=== PATIENT | male | born 1980 | race Asian ===

== ENCOUNTER 2017-11-29 12:46 | Emergency (ER) | payer OTHER, SELFPAY ==
[2017-11-29 12:55] VITALS: BP 136/76; PULSE 71; RESP 15; TEMP 36.4; O2SAT 100; BMI 26.0
--- NOTE | 2017-11-29 13:24 | ED_ITS ---
HPI - Extremity Injury (Lower) <FAIZAN Baltazar - Last Filed: 11/29/17 13:38> General Chief Complaint: Extremity Injury, Lower Stated Complaint: OUTSIDE OF FEET HURT Time Seen by Provider: 11/29/17 13:02 Source: patient Mode of arrival: ambulatory Limitations: no limitations History of Present Illness HPI Narrative: pt c/o B foot pain, hurts on the side of the foot, pinkie sides, no injury/trauma, no running/jugging or heavy impact type activities, no change in color, no sores/lesions, no break in skin, no rash, no change in temperature , no change in rom, pain hurts more when weight bearing, and nothing makes it better, started about x2 weeks ago, denies any other issues/concerns than his feet hurting MD complaint: other Onset (ago): week(s) (2) Severity: mild Relieving factors: nothing Exacerbating factors: weight bearing Other symptoms: none Related Data Previous Rx's Medication Instructions Recorded cyclobenzaprine 10 mg PO TIDP PRN #14 tab 03/19/17 hydrocodone-acetaminophen 0 tab PO Q6HP PRN #15 tab 03/19/17 prednisone 20 mg PO QDAY 5 Days #0 tab 05/02/17 Allergies Allergy/AdvReac Type Severity Reaction Status Date / Time No Known Drug Allergies Allergy Verified 11/29/17 12:54 Review of Systems <FAIZAN Baltazar - Last Filed: 11/29/17 13:38> Review of Systems All systems reviewed & are unremarkable except as noted in HPI and below Constitutional Reports as per HPI and Reports system reviewed and no additional complaints, except as docu ENT Ears, Nose, Mouth, and Throat: Denies neck pain Musculoskeletal Reports as per HPI, Denies abnormal gait, Denies back pain, Denies myalgias, Denies deformity, Denies arthralgias, Denies joint swelling, Denies limited range of motion, Denies muscle cramps, Denies muscle weakness, Denies neck pain , Reports numbness (sometimes the area around side of pinkie toe feels numb), Denies radiating pain into limb, Denies stiffness and Denies tingling Integumentary/Breasts Reports as per HPI, Denies pruritus, Denies lesions, Denies nail changes, Denies erythema, Denies rash, Denies skin pain, Denies skin swelling, Denies skin ulcer, Denies sores, Denies unusual bruising and Denies wounds Neurologic Denies abnormal gait, Reports numbness (sometimes the area around side of pinkie toe feels numb) and Denies tingling Exam <FAIZAN Baltazar - Last Filed: 11/29/17 13:38> Initial Vital Signs Initial Vital Signs: Vital Signs Temperature 97.6 F 11/29/17 12:55 Pulse Rate 71 11/29/17 12:55 Respiratory Rate 15 11/29/17 12:55 Blood Pressure 136/76 11/29/17 12:55 Pulse Oximetry 100 11/29/17 12:55 Const General: cooperative, healthy appearing, comfortable and well developed Nutritional Appearance: average body habitus Orientation: alert, awake and oriented x3 Resp Effort & Inspection: normal respiratory effort and able to speak in complete sentences Back/Spine/Pelvis Cervical Spine: cervical ROM normal Thoracic/Lumbar Spine: thoraco-lumbar ROM limited Skin General: no rashes or lesions noted, elasticity normal, turgor normal, No erythema and warm Lesions: no lesions Rashes: no rashes Trauma: no lacerations or abrasions Wounds: no wounds Nails: normal Neuro General: alert, awake and oriented x3 Cranial Nerves: CN's II-XI intact bilaterally Cognition: normal cognition Speech: speech normal Motor: muscle tone normal throughout Sensory Exam: no sensory deficits noted Extrem General: normal to inspection and full ROM Right upper extremity: normal to inspection and full ROM Left upper extremity: normal to inspection and full ROM Right lower extremity: normal to inspection, full ROM and normal capillary refill; no edema Left lower extremity: normal to inspection, full ROM and normal capillary refill ; no edema Psych Appearance: grossly normal and well kempt Mental Status: mental status grossly normal Speech and Movement: speech and movement normal Mood: congruent mood Affect: normal affect Attitude: cooperative Thought Process: normal Thought Content: normal Judgment: judgment good <Destini Johnson MD - Last Filed: 11/29/17 20:17> Initial Vital Signs Initial Vital Signs: Vital Signs Temperature 97.6 F 11/29/17 12:55 Pulse Rate 71 11/29/17 12:55 Respiratory Rate 15 11/29/17 12:55 Blood Pressure 136/76 11/29/17 12:55 Pulse Oximetry 100 11/29/17 12:55 Course <FAIZAN Baltazar - Last Filed: 11/29/17 13:38> Vital Signs - 8 hr 11/29/17 12:55 Temperature 97.6 F Pulse Rate 71 Respiratory Rate 15 Blood Pressure 136/76 Pulse Oximetry 100 <Destini Johnson MD - Last Filed: 11/29/17 20:17> Vital Signs - 8 hr 11/29/17 12:55 Temperature 97.6 F Pulse Rate 71 Respiratory Rate 15 Blood Pressure 136/76 Pulse Oximetry 100 MDM - Extremity Injury (Lower) <FAIZAN Baltazar - Last Filed: 11/29/17 13:38> Differential Diagnosis Likely fracture of toe and other (sprain, gout, cellulitis, arthritis, plantar fascitis, tendonitis, stress fx) Discharge Plan Departure Patient Disposition: Home Clinical Impression: Bilateral foot pain Discharge Date/Time: 11/29/17 13:28 Interventions: ED Discharge Assessment Last Done: 11/29/17 13:27 Instructions: DI for Metatarsalgia, DI for Foot Pain Prescriptions: No Action cyclobenzaprine 10 MG tablet 10 mg PO TIDP PRNQty: 14 RF: 0 hydrocodone-acetaminophen 5 MG/325 MG tablet PO Q6HP PRNQty: 15 RF: 0 prednisone 20 MG tablet 20 mg PO QDAY 5 Days Qty: 0 RF: 0 Referrals: Jagdeep Gage DPM [Non-Staff] - Naresh Pulliam DPM [Non-Staff] - (follow up with podiatry as needed for continued pain or issues) Claudette Buchanan DPM [Physician] - Lois Thakkar DPM [Non-Staff] - Kermit Wong DPM [Physician] -
== END 2017-11-29 13:28 | disposition home or self-care (01) ==
PROVIDERS: Emergency Provider Nurse Practitioner
DX: M79.671 Pain in right foot (principal); M79.672 Pain in left foot
CPT/HCPCS: 99282

== ENCOUNTER 2017-12-28 18:16 | Emergency (ER) | payer OTHER, SELFPAY ==
[2017-12-28 18:33] VITALS: BP 135/58; PULSE 66; RESP 18; TEMP 36.8; O2SAT 100; BMI 25.9
--- NOTE | 2017-12-28 18:39 | ED.ABDPAIN ---
HPI - Abdominal Pain <Alycia Virk PA-C - Last Filed: 12/28/17 21:43> General Chief Complaint: Abdominal Pain Stated Complaint: L Side Abdominal Pain Time Seen by Provider: 12/28/17 18:39 Source: patient Mode of arrival: ambulatory Limitations: no limitations History of Present Illness HPI narrative: This 37-year-old male comes in due to left upper quadrant pain. He states he has had this intermittently for 6 months. It occurs when feels hungry, typically on an empty stomach, often in the morning. He states he gets better within minutes after he has food in his stomach. He states if he over eats he might have some pain as well. He states that when he has the pain, it is worse when he bends over, better if he sits straight. He said in the last couple of weeks, he has had pain a little bit more frequently and slightly more severe. It was a bit worse this morning, resolved now. He denies any fever. He denies any dysphagia or odynophagia. He denies any nausea or vomiting. He denies any urinary symptoms. He states his bowel movements are normal. He has also had occasional blood on toilet paper, not in the stool, for 4 months or more, none today. He denies any pain in his ribs or chest, no dyspnea. He notes he has been on meloxicam for chronic neck pain and headaches, as well as Robaxin and gabapentin and is scheduled to get a injection for this. The states he has a remote history of H pylori 10 years ago Related Data Previous Rx's Medication Instructions Recorded cyclobenzaprine 10 mg PO TIDP PRN #14 tab 03/19/17 hydrocodone-acetaminophen 0 tab PO Q6HP PRN #15 tab 03/19/17 prednisone 20 mg PO QDAY 5 Days #0 tab 05/02/17 Allergies Allergy/AdvReac Type Severity Reaction Status Date / Time No Known Drug Allergies Allergy Verified 12/28/17 18:37 Review of Systems <Alycia Virk PA-C - Last Filed: 12/28/17 21:43> Review of Systems All systems reviewed & are unremarkable except as noted in HPI and below Exam <NINA Gonzalez Last Filed: 12/28/17 21:43> Narrative Exam Narrative: GENERAL APPEARANCE: Patient sitting comfortably, appears well HEENT: PERRL, EOMI, no scleral icterus NECK: Supple, small R. anterior thryroid nodule noted, no other masses, trachea midline with normal swallow LUNGS: Clear to auscultation bilaterally. HEART: Rate and rhythm regular, normal S1 and S2, no S3 or S4. ABDOMEN: Soft, nondistended, bowel sounds present x 4 quadrants, no masses palpable, no hepatosplenomegaly. Minimal right upper quadrant tenderness without guarding or rebound. No tenderness over the epigastrium, left upper quadrant. EXTREMITIES: No edema, no cyanosis DERMATOLOGIC: No jaundice or exanthem NEUROLOGIC: Alert and oriented with normal speech and coordination Initial Vital Signs Initial Vital Signs: Vital Signs Temperature 98.3 F 12/28/17 18:33 Pulse Rate 66 12/28/17 18:33 Respiratory Rate 18 12/28/17 18:33 Blood Pressure 135/58 L 12/28/17 18:33 Pulse Oximetry 100 12/28/17 18:33 <Lori Carr DO - Last Filed: 12/29/17 03:05> Initial Vital Signs Initial Vital Signs: Vital Signs Temperature 98.3 F 12/28/17 18:33 Pulse Rate 66 12/28/17 18:33 Respiratory Rate 18 12/28/17 18:33 Blood Pressure 135/58 L 12/28/17 18:33 Pulse Oximetry 100 12/28/17 18:33 Course <Alycia Virk PA-C - Last Filed: 12/28/17 21:43> Additional Information: Patient is currently asymptomatic had minimal right upper quadrant pain (not left, which was his complaint) on exam. No acute findings on lab work or ultrasound. He does have history of H pylori. Advised trial of omeprazole and follow up with PCP as he may need further workup such as EGD if not improving. He is agreeable with this plan as well as return if any acutely worsening symptoms. Discussed coincidentally noted small thyroid nodule with him. He has had MRI/imaging of his neck with plan for injections, so this may have been noted previously. Advised review with PCP as well. Orders Ordered: ED Orders 12/28/17 18:53 US abdomen complete Stat 12/28/17 18:55 Complete Blood Count AUTO DIFF Stat Comprehensive Metabolic Panel Stat Lipase Stat Vital Signs - 8 hr 12/28/17 20:05 Pulse Rate 58 L Respiratory Rate 16 Blood Pressure [Right Arm] 118/69 Pulse Oximetry 100 <Lori Carr DO - Last Filed: 12/29/17 03:05> Orders Ordered: ED Orders 12/28/17 18:53 US abdomen complete Stat 12/28/17 18:55 Complete Blood Count AUTO DIFF Stat Comprehensive Metabolic Panel Stat Lipase Stat Vital Signs - 8 hr 12/28/17 20:05 Pulse Rate 58 L Respiratory Rate 16 Blood Pressure [Right Arm] 118/69 Pulse Oximetry 100 MDM - Abdominal Pain <Alycia Virk PA-C - Last Filed: 12/28/17 21:43> Lab Data Attestation: I reviewed the patient's lab results. Result diagrams: 12/28/17 18:55 12/28/17 18:55 Lab Results 12/28/17 12/28/17 Range/Units 18:55 18:55 WBC 6.6 (4.5-11.0) X10^3/uL RBC 5.50 (4.5-5.9) X10^6/uL Hgb 16.0 (13.5-17.5) g/dL Hct 47.3 (41-53) % MCV 86.0 (80-100) fL MCH 29.1 (26-34) PG MCHC 33.8 (30-36) % RDW 12.9 (11.6-14.8) % Plt Count 206 (150-400) X10^3/uL Neut % (Auto) 52.7 (50-75) % Lymph % (Auto) 37.9 (25-40) % [place] % (Auto) 6.5 (3-14) % Eos % (Auto) 2.0 (2-4) % Baso % (Auto) 0.9 (0-2) % Neut # (Auto) 3500 (6509-0319) /uL Sodium 140 (137-145) mmol/L Potassium 4.0 (3.4-5.1) mmol/L Chloride 102 (98-107) mmol/L Carbon Dioxide 28 (22-32) mmol/L BUN 18 (9-20) mg/dL Creatinine 1.00 (0.66-1.25) mg/dL Estimated GFR > 60.0 (>60) mL/min BUN/Creatinine Ratio 18.0 (6-22) Glucose 91 (70-100) mg/dL Calcium 9.6 (8.4-10.2) mg/dL Total Bilirubin 0.7 (0.2-1.3) mg/dL AST 29 (17-59) IU/L ALT 29 (21-72) IU/L Alkaline Phosphatase 53 (38-126) U/L Total Protein 8.0 (6.3-8.2) g/dL Albumin 4.7 (3.5-5.0) g/dL Globulin 3.3 (1.7-4.1) g/dL Albumin/Globulin Ratio 1.4 (1.0-2.8) Lipase 35 (23-300) U/L Imaging Data US - abdomen: Radiologist's impression: [address] [address] Ultrasound Report Signed Patient: Robbin Mondragon#: [id number] : 1980Acct:[id number] Age/Sex: 37 / MDate of Service: 12/28/17 Loc: ED Accession Number: [id number] Procedure: US abdomen complete Ordering Provider: Alycia Virk P.A-C PROCEDURE: US ABDOMEN COMPLETE INDICATIONS: LEFT UPPER QUADRANT PAIN TECHNIQUE: Real-time scanning was performed of the abdominal and retroperitoneal organs, with image documentation. COMPARISON: None. FINDINGS: Liver: Liver is normal in size and homogeneous in echotexture. Gallbladder: Gallbladder is unremarkable. Wall thickness is within normal limits measuring 1.7 mm. Biliary ducts: Intrahepatic bile ducts are non-dilated. Extrahepatic bile duct caliber measures 5.4 mm. Normal is 6-7 mm or less in diameter, or 10 mm or less post-cholecystectomy. Pancreas: Visualized portions of the pancreas are sonographically normal. Spleen: Spleen is normal in size and homogeneous in echotexture. Kidneys: Kidneys are normal in size and echotexture. Right kidney measures 10.9 cm long; left kidney measures 10.5 cm long. No hydronephrosis or nephrolithiasis. No solid masses. Aorta: Visualized aorta is normal in caliber at less than 3 cm. Iliacs: Proximal common iliac arteries are normal in caliber at less than 2.5 cm. IVC: Intrahepatic inferior vena cava is patent. Miscellaneous: No free abdominal fluid. IMPRESSION: 1. Unremarkable exam. Dictated by: Sonia Hand M.D. on 12/28/2017 at 20:38 Approved by: Sonia Hand M.D. on 12/28/2017 at 20:39 <Lori Carr DO - Last Filed: 12/29/17 03:05> Lab Data Lab Results 12/28/17 12/28/17 Range/Units 18:55 18:55 WBC 6.6 (4.5-11.0) X10^3/uL RBC 5.50 (4.5-5.9) X10^6/uL Hgb 16.0 (13.5-17.5) g/dL Hct 47.3 (41-53) % MCV 86.0 (80-100) fL MCH 29.1 (26-34) PG MCHC 33.8 (30-36) % RDW 12.9 (11.6-14.8) % Plt Count 206 (150-400) X10^3/uL Neut % (Auto) 52.7 (50-75) % Lymph % (Auto) 37.9 (25-40) % [place] % (Auto) 6.5 (3-14) % Eos % (Auto) 2.0 (2-4) % Baso % (Auto) 0.9 (0-2) % Neut # (Auto) 3500 (2453-7832) /uL Sodium 140 (137-145) mmol/L Potassium 4.0 (3.4-5.1) mmol/L Chloride 102 (98-107) mmol/L Carbon Dioxide 28 (22-32) mmol/L BUN 18 (9-20) mg/dL Creatinine 1.00 (0.66-1.25) mg/dL Estimated GFR > 60.0 (>60) mL/min BUN/Creatinine Ratio 18.0 (6-22) Glucose 91 (70-100) mg/dL Calcium 9.6 (8.4-10.2) mg/dL Total Bilirubin 0.7 (0.2-1.3) mg/dL AST 29 (17-59) IU/L ALT 29 (21-72) IU/L Alkaline Phosphatase 53 (38-126) U/L Total Protein 8.0 (6.3-8.2) g/dL Albumin 4.7 (3.5-5.0) g/dL Globulin 3.3 (1.7-4.1) g/dL Albumin/Globulin Ratio 1.4 (1.0-2.8) Lipase 35 (23-300) U/L Discharge Plan Departure Patient Disposition: Home Clinical Impression: Abdominal pain Discharge Date/Time: 12/28/17 20:13 Interventions: ED Discharge Assessment Last Done: 12/28/17 20:11 Instructions: DI for Abdominal Pain-Adult Activity Restrictions/Additional Instructions: Please return if you have any acutely worsening symptoms, or new symptoms such as vomiting or fever. There does not appear to be any abnormality on your testing today or need for hospitalization, but you should see your primary care provider next week for follow-up and to talk about further testing. 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 You can start this tonight and then take your next dose tomorrow night before dinner. I also noticed that there is a small nodule on the left side of your thyroid today. Since you have had imaging studies of your neck before, this may have been seen previously and your primary care provider may know about it, but please have this rechecked. Thyroid nodules are very common and I do not think this is related to your abdominal symptoms. Prescriptions: No Action cyclobenzaprine 10 MG tablet 10 mg PO TIDP PRNQty: 14 RF: 0 hydrocodone-acetaminophen 5 MG/325 MG tablet PO Q6HP PRNQty: 15 RF: 0 prednisone 20 MG tablet 20 mg PO QDAY 5 Days Qty: 0 RF: 0 [facility] <Lori Carr DO - Last Filed: 12/29/17 03:05> Cosign ED Attending Fay Attestation: I was immediately available in the department for consultation. Documentation has been reviewed. I agree with assessment and plan.
--- NOTE | 2017-12-28 18:53 | DI.US.S_ITS ---
PROCEDURE: US ABDOMEN COMPLETE INDICATIONS: LEFT UPPER QUADRANT PAIN TECHNIQUE: Real-time scanning was performed of the abdominal and retroperitoneal organs, with image documentation. COMPARISON: None. FINDINGS: Liver: Liver is normal in size and homogeneous in echotexture. Gallbladder: Gallbladder is unremarkable. Wall thickness is within normal limits measuring 1.7 mm. Biliary ducts: Intrahepatic bile ducts are non-dilated. Extrahepatic bile duct caliber measures 5.4 mm. Normal is 6-7 mm or less in diameter, or 10 mm or less post-cholecystectomy. Pancreas: Visualized portions of the pancreas are sonographically normal. Spleen: Spleen is normal in size and homogeneous in echotexture. Kidneys: Kidneys are normal in size and echotexture. Right kidney measures 10.9 cm long; left kidney measures 10.5 cm long. No hydronephrosis or nephrolithiasis. No solid masses. Aorta: Visualized aorta is normal in caliber at less than 3 cm. Iliacs: Proximal common iliac arteries are normal in caliber at less than 2.5 cm. IVC: Intrahepatic inferior vena cava is patent. Miscellaneous: No free abdominal fluid. IMPRESSION: 1. Unremarkable exam. Dictated by: Sonia Hand M.D. on 12/28/2017 at 20:38 Approved by: Sonia Hand M.D. on 12/28/2017 at 20:39
--- NOTE | 2017-12-28 18:59 | ED_ITS ---
HPI - Abdominal Pain <Alycia Virk PA-C - Last Filed: 12/28/17 21:43> General Chief Complaint: Abdominal Pain Stated Complaint: L Side Abdominal Pain Time Seen by Provider: 12/28/17 18:39 Source: patient Mode of arrival: ambulatory Limitations: no limitations History of Present Illness HPI narrative: This 37-year-old male comes in due to left upper quadrant pain. He states he has had this intermittently for 6 months. It occurs when feels hungry, typically on an empty stomach, often in the morning. He states he gets better within minutes after he has food in his stomach. He states if he over eats he might have some pain as well. He states that when he has the pain, it is worse when he bends over, better if he sits straight. He said in the last couple of weeks, he has had pain a little bit more frequently and slightly more severe. It was a bit worse this morning, resolved now. He denies any fever. He denies any dysphagia or odynophagia. He denies any nausea or vomiting. He denies any urinary symptoms. He states his bowel movements are normal. He has also had occasional blood on toilet paper, not in the stool, for 4 months or more, none today. He denies any pain in his ribs or chest, no dyspnea. He notes he has been on meloxicam for chronic neck pain and headaches, as well as Robaxin and gabapentin and is scheduled to get a injection for this. The states he has a remote history of H pylori 10 years ago Related Data Previous Rx's Medication Instructions Recorded cyclobenzaprine 10 mg PO TIDP PRN #14 tab 03/19/17 hydrocodone-acetaminophen 0 tab PO Q6HP PRN #15 tab 03/19/17 prednisone 20 mg PO QDAY 5 Days #0 tab 05/02/17 Allergies Allergy/AdvReac Type Severity Reaction Status Date / Time No Known Drug Allergies Allergy Verified 12/28/17 18:37 Review of Systems <Alycia Virk PA-C - Last Filed: 12/28/17 21:43> Review of Systems All systems reviewed & are unremarkable except as noted in HPI and below Exam <NINA Gonzalez Last Filed: 12/28/17 21:43> Narrative Exam Narrative: GENERAL APPEARANCE: Patient sitting comfortably, appears well HEENT: PERRL, EOMI, no scleral icterus NECK: Supple, small R. anterior thryroid nodule noted, no other masses, trachea midline with normal swallow LUNGS: Clear to auscultation bilaterally. HEART: Rate and rhythm regular, normal S1 and S2, no S3 or S4. ABDOMEN: Soft, nondistended, bowel sounds present x 4 quadrants, no masses palpable, no hepatosplenomegaly. Minimal right upper quadrant tenderness without guarding or rebound. No tenderness over the epigastrium, left upper quadrant. EXTREMITIES: No edema, no cyanosis DERMATOLOGIC: No jaundice or exanthem NEUROLOGIC: Alert and oriented with normal speech and coordination Initial Vital Signs Initial Vital Signs: Vital Signs Temperature 98.3 F 12/28/17 18:33 Pulse Rate 66 12/28/17 18:33 Respiratory Rate 18 12/28/17 18:33 Blood Pressure 135/58 L 12/28/17 18:33 Pulse Oximetry 100 12/28/17 18:33 <Lori Carr DO - Last Filed: 12/29/17 03:05> Initial Vital Signs Initial Vital Signs: Vital Signs Temperature 98.3 F 12/28/17 18:33 Pulse Rate 66 12/28/17 18:33 Respiratory Rate 18 12/28/17 18:33 Blood Pressure 135/58 L 12/28/17 18:33 Pulse Oximetry 100 12/28/17 18:33 Course <Alycia Virk PA-C - Last Filed: 12/28/17 21:43> Additional Information: Patient is currently asymptomatic had minimal right upper quadrant pain (not left, which was his complaint) on exam. No acute findings on lab work or ultrasound. He does have history of H pylori. Advised trial of omeprazole and follow up with PCP as he may need further workup such as EGD if not improving. He is agreeable with this plan as well as return if any acutely worsening symptoms. Discussed coincidentally noted small thyroid nodule with him. He has had MRI/imaging of his neck with plan for injections, so this may have been noted previously. Advised review with PCP as well. Orders Ordered: ED Orders 12/28/17 18:53 US abdomen complete Stat 12/28/17 18:55 Complete Blood Count AUTO DIFF Stat Comprehensive Metabolic Panel Stat Lipase Stat Vital Signs - 8 hr 12/28/17 20:05 Pulse Rate 58 L Respiratory Rate 16 Blood Pressure [Right Arm] 118/69 Pulse Oximetry 100 <Lori Carr DO - Last Filed: 12/29/17 03:05> Orders Ordered: ED Orders 12/28/17 18:53 US abdomen complete Stat 12/28/17 18:55 Complete Blood Count AUTO DIFF Stat Comprehensive Metabolic Panel Stat Lipase Stat Vital Signs - 8 hr 12/28/17 20:05 Pulse Rate 58 L Respiratory Rate 16 Blood Pressure [Right Arm] 118/69 Pulse Oximetry 100 MDM - Abdominal Pain <Alycia Virk PA-C - Last Filed: 12/28/17 21:43> Lab Data Attestation: I reviewed the patient's lab results. Result diagrams: 12/28/17 18:55 12/28/17 18:55 Lab Results 12/28/17 12/28/17 Range/Units 18:55 18:55 WBC 6.6 (4.5-11.0) X10^3/uL RBC 5.50 (4.5-5.9) X10^6/uL Hgb 16.0 (13.5-17.5) g/dL Hct 47.3 (41-53) % MCV 86.0 (80-100) fL MCH 29.1 (26-34) PG MCHC 33.8 (30-36) % RDW 12.9 (11.6-14.8) % Plt Count 206 (150-400) X10^3/uL Neut % (Auto) 52.7 (50-75) % Lymph % (Auto) 37.9 (25-40) % [place] % (Auto) 6.5 (3-14) % Eos % (Auto) 2.0 (2-4) % Baso % (Auto) 0.9 (0-2) % Neut # (Auto) 3500 (3939-4645) /uL Sodium 140 (137-145) mmol/L Potassium 4.0 (3.4-5.1) mmol/L Chloride 102 (98-107) mmol/L Carbon Dioxide 28 (22-32) mmol/L BUN 18 (9-20) mg/dL Creatinine 1.00 (0.66-1.25) mg/dL Estimated GFR > 60.0 (>60) mL/min BUN/Creatinine Ratio 18.0 (6-22) Glucose 91 (70-100) mg/dL Calcium 9.6 (8.4-10.2) mg/dL Total Bilirubin 0.7 (0.2-1.3) mg/dL AST 29 (17-59) IU/L ALT 29 (21-72) IU/L Alkaline Phosphatase 53 (38-126) U/L Total Protein 8.0 (6.3-8.2) g/dL Albumin 4.7 (3.5-5.0) g/dL Globulin 3.3 (1.7-4.1) g/dL Albumin/Globulin Ratio 1.4 (1.0-2.8) Lipase 35 (23-300) U/L Imaging Data US - abdomen: Radiologist's impression: [address] [address] Ultrasound Report Signed Patient: Robbin Mondragon#: [id number] : 1980Acct:[id number] Age/Sex: 37 / MDate of Service: 12/28/17 Loc: ED Accession Number: [id number] Procedure: US abdomen complete Ordering Provider: Alycia Virk P.A-C PROCEDURE: US ABDOMEN COMPLETE INDICATIONS: LEFT UPPER QUADRANT PAIN TECHNIQUE: Real-time scanning was performed of the abdominal and retroperitoneal organs, with image documentation. COMPARISON: None. FINDINGS: Liver: Liver is normal in size and homogeneous in echotexture. Gallbladder: Gallbladder is unremarkable. Wall thickness is within normal limits measuring 1.7 mm. Biliary ducts: Intrahepatic bile ducts are non-dilated. Extrahepatic bile duct caliber measures 5.4 mm. Normal is 6-7 mm or less in diameter, or 10 mm or less post-cholecystectomy. Pancreas: Visualized portions of the pancreas are sonographically normal. Spleen: Spleen is normal in size and homogeneous in echotexture. Kidneys: Kidneys are normal in size and echotexture. Right kidney measures 10.9 cm long; left kidney measures 10.5 cm long. No hydronephrosis or nephrolithiasis. No solid masses. Aorta: Visualized aorta is normal in caliber at less than 3 cm. Iliacs: Proximal common iliac arteries are normal in caliber at less than 2.5 cm. IVC: Intrahepatic inferior vena cava is patent. Miscellaneous: No free abdominal fluid. IMPRESSION: 1. Unremarkable exam. Dictated by: Sonia Hand M.D. on 12/28/2017 at 20:38 Approved by: Sonia Hand M.D. on 12/28/2017 at 20:39 <Lori Carr DO - Last Filed: 12/29/17 03:05> Lab Data Lab Results 12/28/17 12/28/17 Range/Units 18:55 18:55 WBC 6.6 (4.5-11.0) X10^3/uL RBC 5.50 (4.5-5.9) X10^6/uL Hgb 16.0 (13.5-17.5) g/dL Hct 47.3 (41-53) % MCV 86.0 (80-100) fL MCH 29.1 (26-34) PG MCHC 33.8 (30-36) % RDW 12.9 (11.6-14.8) % Plt Count 206 (150-400) X10^3/uL Neut % (Auto) 52.7 (50-75) % Lymph % (Auto) 37.9 (25-40) % [place] % (Auto) 6.5 (3-14) % Eos % (Auto) 2.0 (2-4) % Baso % (Auto) 0.9 (0-2) % Neut # (Auto) 3500 (6915-3416) /uL Sodium 140 (137-145) mmol/L Potassium 4.0 (3.4-5.1) mmol/L Chloride 102 (98-107) mmol/L Carbon Dioxide 28 (22-32) mmol/L BUN 18 (9-20) mg/dL Creatinine 1.00 (0.66-1.25) mg/dL Estimated GFR > 60.0 (>60) mL/min BUN/Creatinine Ratio 18.0 (6-22) Glucose 91 (70-100) mg/dL Calcium 9.6 (8.4-10.2) mg/dL Total Bilirubin 0.7 (0.2-1.3) mg/dL AST 29 (17-59) IU/L ALT 29 (21-72) IU/L Alkaline Phosphatase 53 (38-126) U/L Total Protein 8.0 (6.3-8.2) g/dL Albumin 4.7 (3.5-5.0) g/dL Globulin 3.3 (1.7-4.1) g/dL Albumin/Globulin Ratio 1.4 (1.0-2.8) Lipase 35 (23-300) U/L Discharge Plan Departure Patient Disposition: Home Clinical Impression: Abdominal pain Discharge Date/Time: 12/28/17 20:13 Interventions: ED Discharge Assessment Last Done: 12/28/17 20:11 Instructions: DI for Abdominal Pain-Adult Activity Restrictions/Additional Instructions: Please return if you have any acutely worsening symptoms, or new symptoms such as vomiting or fever. There does not appear to be any abnormality on your testing today or need for hospitalization, but you should see your primary care provider next week for follow-up and to talk about further testing. In the meantime, please pickle processor some [id number] omeprazole (20 mg Prilosec) and take once daily about 45 min prior to a meal. You can start this tonight and then take your next dose tomorrow night before dinner. I also noticed that there is a small nodule on the left side of your thyroid today. Since you have had imaging studies of your neck before, this may have been seen previously and your primary care provider may know about it, but please have this rechecked. Thyroid nodules are very common and I do not think this is related to your abdominal symptoms. Prescriptions: No Action cyclobenzaprine 10 MG tablet 10 mg PO TIDP PRNQty: 14 RF: 0 hydrocodone-acetaminophen 5 MG/325 MG tablet PO Q6HP PRNQty: 15 RF: 0 prednisone 20 MG tablet 20 mg PO QDAY 5 Days Qty: 0 RF: 0 Referrals: [facility] [Provider Group] <Lori Carr DO - Last Filed: 12/29/17 03:05> Cosign ED Attending Fay Attestation: I was immediately available in the department for consultation. Documentation has been reviewed. I agree with assessment and plan.
[2017-12-28 19:08] LABS: Add Manual Diff / Slide Review NO; Basophils Percent Auto 0.9 % (0-2); Hematocrit 47.3 % (41-53); Lymphocytes Percent Auto 37.9 % (25-40); Mean Corpuscular HGB Conc 33.8 % (30-36); Mean Corpuscular Hemoglobin 29.1 PG (26-34); Monocytes Percent Auto 6.5 % (3-14); Neutrophils Absolute Auto 3500 /uL (3000-5900); Neutrophils Percent Auto 52.7 % (50-75); Platelet Count 206 X10^3/uL (150-400); Red Cell Distribution Width 12.9 % (11.6-14.8); White Blood Cell Count 6.6 X10^3/uL (4.5-11.0)
[2017-12-28 19:21] LABS: Alanine Aminotransferase 29 IU/L (21-72); Albumin 4.7 g/dL (3.5-5.0); Albumin Globulin Ratio 1.4 (1.0-2.8); Alkaline Phosphatase 53 U/L (38-126); Aspartate Aminotransferase 29 IU/L (17-59); Bilirubin Total 0.7 mg/dL (0.2-1.3); Blood Urea Nitrogen 18 mg/dL (9-20); Calcium 9.6 mg/dL (8.4-10.2); Carbon Dioxide 28 mmol/L (22-32); Chloride 102 mmol/L (98-107); Estimated Glomerular Filt Rate > 60.0 mL/min (>60); Globulin 3.3 g/dL (1.7-4.1); Glucose 91 mg/dL (70-100); HEMOLYSIS 36 (0-50); Lipase 35 U/L (23-300); Sodium 140 mmol/L (137-145)
[2017-12-28 20:05] VITALS: BP 118/69; PULSE 58; RESP 16; O2SAT 100
== END 2017-12-28 20:13 | disposition home or self-care (01) ==
PROVIDERS: Emergency Provider Internal Medicine
DX: R10.9 Unspecified abdominal pain (principal)
CPT/HCPCS: 36415; 76700; 80053; 83690; 85025; 99282; 99284

== ENCOUNTER 2018-03-22 14:07 | Emergency (ER) | payer OTHER, SELFPAY ==
[2018-03-22 14:11] VITALS: BP 127/77; PULSE 72; RESP 14; TEMP 36.6; O2SAT 99; BMI 26.9
[2018-03-22 16:19] VITALS: PULSE 72
--- NOTE | 2018-03-22 16:21 | PC.NURSE ---
wrist pain only w/ repetitive motion. Currently comfortable.
[2018-03-22 16:22] VITALS: BP 122/70; PULSE 72; RESP 14; O2SAT 99
--- NOTE | 2018-03-22 17:16 | ED.EXTPRO ---
HPI - Extremity Problem <NINA Gonzalez Last Filed: 03/22/18 21:57> General Chief complaint: Extremity Problem,Nontraumatic Stated complaint: wrist pain, unknown cause Time Seen by Provider: 03/22/18 16:45 Source: patient Mode of arrival: ambulatory Limitations: no limitations History of Present Illness HPI Narrative: This 37-year-old male comes in due to exacerbation of chronic bilateral wrist pain. He is ambidextrous. States he has had this for about a year. 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 He states that he was seen for this previously, but then was deployed to a warmer environment and it seems somewhat better there. He states ice is also helpful. For the last few weeks however pain has been much more persistent. He states it hurts with squeezing and twisting his wrists and using his thumbs, i.e. wringing out a towel or carrying a grocery basket. He states that he does not have any weakness. He denies any paresthesia, but states the pain can radiate a little bit into the proximal thumbs. He states that pain does not radiate into his fingers. He feels it throughout his wrist. He denies swelling or pain in other joints. He denies other complaints today. He states he has not been seen by PCM for this. Related Data Home Medications Medication Instructions Recorded Confirmed amoxicillin 50 mg PO TID 03/22/18 03/22/18 chlorhexidine gluconate 1 dose PO DIRECTED 03/22/18 03/22/18 ibuprofen 800 mg PO TID PRN 03/22/18 03/22/18 Previous Rx's Medication Instructions Recorded meloxicam [Mobic] 15 mg PO DAILY #30 tab 03/22/18 Allergies Allergy/AdvReac Type Severity Reaction Status Date / Time No Known Drug Allergies Allergy Verified 12/28/17 18:37 Review of Systems <NINA Gonzalez Last Filed: 03/22/18 21:57> Review of Systems ROS Unobtainable: All systems reviewed & are unremarkable except as noted in HPI and below Exam <NINA Gonzalez Last Filed: 03/22/18 21:57> Narrative Exam Narrative: GENERAL APPEARANCE: Patient sitting comfortably, in no distress. LUNGS: Clear to auscultation bilaterally. HEART: Rate and rhythm regular without murmur, normal S1 and S2, no S3 or S4. MUSCULOSKELETAL: bilateral wrists no effusion. Mild tenderness over both wrists as well as the proximal thumbs at the MCP joints. No tenderness over the fingers. Negative Tinel sign. Media Theorist And Author Of strength 5/5 bilaterally. He does have a positive Aleida test bilaterally. NEUROVASCULAR: Bilateral hands and wrists sensation is grossly intact, fingers are warm and pink Initial Vital Signs Initial Vital Signs: Vital Signs Temperature 97.8 F 03/22/18 14:11 Pulse Rate 72 03/22/18 14:11 Respiratory Rate 14 03/22/18 14:11 Blood Pressure 127/77 03/22/18 14:11 Pulse Oximetry 99 03/22/18 14:11 <Destini Johnson MD - Last Filed: 03/24/18 03:56> Initial Vital Signs Initial Vital Signs: Vital Signs Temperature 97.8 F 03/22/18 14:11 Pulse Rate 72 03/22/18 14:11 Respiratory Rate 14 03/22/18 14:11 Blood Pressure 127/77 03/22/18 14:11 Pulse Oximetry 99 03/22/18 14:11 Course <Alycia Virk PA-C - Last Filed: 03/22/18 21:57> Vital Signs - 8 hr 03/22/18 14:11 03/22/18 16:19 03/22/18 16:22 Temperature 97.8 F Pulse Rate 72 72 Pulse Rate [Bilateral Radial] 72 Respiratory Rate 14 14 Blood Pressure 127/77 Blood Pressure [Left Arm] 122/70 Pulse Oximetry 99 99 <Destini Johnson MD - Last Filed: 03/24/18 03:56> Vital Signs - 8 hr 03/22/18 14:11 03/22/18 16:19 03/22/18 16:22 Temperature 97.8 F Pulse Rate 72 72 Pulse Rate [Bilateral Radial] 72 Respiratory Rate 14 14 Blood Pressure 127/77 Blood Pressure [Left Arm] 122/70 Pulse Oximetry 99 99 Discharge Plan Departure Patient Disposition: Home Clinical Impression: Tendinitis of both wrists Discharge Date/Time: 03/22/18 18:05 Interventions: ED Discharge Assessment Last Done: 03/22/18 18:05 Instructions: DI for De Quervain's Tenosynovitis Activity Restrictions/Additional Instructions: I think that you have a chronic overuse syndrome in both of your wrists and thumbs. 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 It is important that you rest your wrists and thumbs. You should wear the splints that we gave you 11/09 including at work. Please start the prescription anti-inflammatory pain medicine that I prescribed for you once daily. Do not take other NSAIDs such as Motrin. Continue ice as needed since this is helpful for you. [place] as other treatments such as hand therapy may be helpful, and this can be done that there. You may also need work modifications. What is de Quervain's tendinopathy? ? de Quervain's tendinopathy is a condition that causes pain in the thumb and wrist. It is caused by a problem with a tendon. Tendons are strong bands of tissue that connect muscles to bones. de Quervain tendinopathy is sometimes called de Quervain tenosynovitis. de Quervain's tendinopathy involves tendons that connect the forearm muscles to the thumb. These tendons and the covering around them get inflamed. This causes symptoms. Most often, de Quervain's tendinopathy happens when people use their wrist and thumb too much in certain ways. This includes gripping or grabbing objects (like a tool, golf club, or tennis racket) over and over. What are the symptoms of de Quervain's tendinopathy? ? Symptoms of de Quervain's tendinopathy include: ?Pain in the wrist or thumb ?Trouble gripping objects ?Swelling in the wrist Will I need tests? ? Probably not. Your doctor can usually tell if you have de Quervain's tendinopathy by learning about your symptoms and doing an exam. During the exam, he or she will carefully check your thumb, hand, and wrist. How is de Quervain's tendinopathy treated? ? Treatment for de Quervain's tendinopathy includes: ?Resting your thumb ? To avoid moving your thumb, you can wear a splint made for keeping the thumb still. ?Ice ? You can put a cold gel pack, bag of ice, or bag of frozen vegetables on the painful or swollen area every 4 to 6 hours, for 15 minutes each time. ?Pain-relieving medicines called NSAIDs ? NSAIDs are a large group of medicines that includes ibuprofen (sample brand names: Advil, Motrin) and naproxen (sample brand name: Aleve). ?Exercises ? After your symptoms improve, your doctor or nurse will show you exercises to help your wrist and thumb move more easily. If your symptoms don't get better with treatment, your doctor might recommend other treatments. These can include: ?Getting a shot of a medicine called a steroid around the inflamed tendon in your wrist ? Steroids help with inflammation. These are not the same as the steroids some athletes take illegally. ?Surgery to cut or loosen the covering around the tendon Prescriptions: New meloxicam [Mobic] 15 mg tablet 15 mg PO DAILY Qty: 30 RF: 0 No Action amoxicillin 500 mg capsule 50 mg PO TID RF: 0 ibuprofen 800 mg tablet 800 mg PO TID PRN (Reason: pain) RF: 0 chlorhexidine gluconate 0.12 % mouthwash 1 dose PO DIRECTED RF: 0 Referrals: López Terrazas [Primary Care Provider] -
== END 2018-03-22 18:05 | disposition home or self-care (01) ==
PROVIDERS: Emergency Provider Internal Medicine; PCP Anesthesiology Pain Medicine
DX: M77.8 Other enthesopathies, not elsewhere classified (principal)
CPT/HCPCS: 99282

== ENCOUNTER 2018-06-27 14:30 | Outpatient (RCR) | payer OTHER, SELFPAY ==
--- NOTE | 2018-02-01 13:39 | PT.OIE ---
Current Diagnoses Other cervical disc degeneration, unspecified cervical region (02/01/18) Lumbago with sciatica, unspecified side (02/01/18) Past Medical History (Last Updated 12/28/17 @ 19:05 by Alycia Virk PA-C) Chronic abdominal pain (Chronic) Chronic headaches (Chronic) Chronic neck pain (Chronic) H. pylori infection (Chronic) Past Surgical History (Last Updated 12/28/17 @ 19:05 by Alycia Virk PA-C) No pertinent past surgical history (Chronic) Provider Visit Care Team Role Provider Type López Terrazas Attending Provider Non-Staff Primary Care Provider Specialty: Medical Address: [address] [place] [address], [address], [phone] Email: Physical Therapy Initial Evaluation PT-OP-A Visit Information Start: 02/01/18 07:02 Freq: Status: Active Protocol: Document 02/01/18 09:45 AMB (Rec: 02/01/18 11:49 AMB [email or web address]) Out-Patient Physical Therapy Visit Information Visit Information Visit Type Initial Evaluation Visit Start Time 09:45 Visit Stop Time 10:30 Total Visit Minutes 45 Visit Number 1 Evaluation Information Evaluation Date 02/01/18 PT-OP-B Current Condition Start: 02/01/18 07:02 Freq: Status: Active Protocol: Document 02/01/18 09:45 AMB (Rec: 02/06/18 10:27 AMB [email or web address]) Current Condition History of Current Condition Onset Date 2 years ago Current Complaints neck and back pain with numbness History of Current Condition Lei attends physical therapy with neck pain and low back pain. 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 He reports numbness in his left buttocks that worsens with coughing. He reports history of left arm numbness constant in nature that has improved with recent steroid injection. [place] reports that traction made him nauseous, worked mostly on strengthening which he did not feel improved his symptoms. He has had 2 steroid injection in his cervical spine which has helped both his pain and the numbness that was going down the left arm. 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 02/16/17 disc bulges at L1-2, L2-3, and L3-4, close proximity to the L2 nerve root, but otherwise no evidence of nerve root compression. Treatment Goals Patient/Caregiver Goals Reduce pain/ numbness Prior Functional Status Baseline Function- ADL's Independent Baseline Function- Mobility Independent Current Functional Impairments (Reported) Functional Limitations- Work/School Unable to work full duty due to neck/back pain and numbness PT-OP-C Subjective Start: 02/01/18 07:02 Freq: Status: Active Protocol: Document 02/01/18 09:45 AMB (Rec: 02/06/18 10:27 AMB [email or web address]) Patient Questionnaires Neck Disability Index NDI Score 28 Neck Disability Index Impairment 40 to 59% Impaired (Score 20- 29) Quick Dash- Upper Extremity Quick Dash UE Score 59 Quick Dash UE Impairment 40 to 59% Impaired (Score 40- 59) PT-OP-F Manual Assessment Start: 02/01/18 07:02 Freq: Status: Active Protocol: Document 02/01/18 09:45 AMB (Rec: 02/06/18 13:14 AMB [email or web address]) Manual Assessments Soft Tissue Assessment Soft Tissue Mobility Assessment Tightness in levator scap and UT bilaterally, worse at the left, Joint Mobility Assessment Joint Mobility Assessment Tenderness with PAs but still springy PT-OP-J Posture/Palpation/Skin Start: 02/01/18 07:02 Freq: Status: Active Protocol: Document 02/01/18 09:45 AMB (Rec: 02/06/18 13:14 AMB [email or web address]) Posture Evaluation Comments Posture Comments flat lumbar spine with mild forward head PT-OP-K Range of Motion Start: 02/01/18 07:02 Freq: Status: Active Protocol: Document 02/01/18 09:45 AMB (Rec: 02/06/18 13:12 AMB [email or web address]) Cervical Spine Range of Motion Cervical Spine Active Degrees Testing Position Sitting Flexion 30 Extension 35 Rotation Left 50 Rotation Right 30 Lateral Flexion Left 20 Lateral Flexion Right 20 ROM Limitations Pain Lumbar Spine Range of Motion Lumbar Spine Active Degrees Testing Position Standing Flexion 10 Extension 10 Lateral Flexion Left 20 Lateral Flexion Right 20 ROM Limitations Pain Shoulder Goniometric Range of Motion Shoulder ROM Limitations Comments Tight into internal rotation and abduction on the left. PT-OP-L Special Tests Start: 02/01/18 07:02 Freq: Status: Active Protocol: Document 02/01/18 09:45 AMB (Rec: 02/06/18 13:12 AMB [email or web address]) Special Tests Lumbar Spine Special Tests Straight Leg Raise Test Results positive Comments for pain bilat at 50 degrees PT-OP-M Strength Start: 02/01/18 07:02 Freq: Status: Active Protocol: Document 02/01/18 09:45 AMB (Rec: 02/06/18 13:12 AMB [email or web address]) Hand Mail Carrier And Clerk/Pinch Strength Hand Dominance Hand Dominance Right Hand Strength Right Mail Carrier And Clerk (lbs) 60 Left Mail Carrier And Clerk (lbs) 33 Hip Strength Hip Manual Muscle Testing Right Flexion (L2) 4 Good Extension (S1) 4 Good Abduction 4 Good Left Flexion (L2) 4 Good Extension (S1) 4- Good- Abduction 4 Good PT-OP-T Assessment and Plan Start: 02/01/18 07:02 Freq: Status: Active Protocol: Document 02/01/18 09:45 AMB (Rec: 02/06/18 13:37 AMB [email or web address]) Physical Therapy Assessment Rehab Potential Rehabilitation Potential Fair Evaluation Complexity Number of Personal Factors/Comorbidities 1-2 Number of Body Systems Impaired 4 or More Clinical Presentation at Evaluation Evolving Impairments Impairments Pain Posture ROM Soft Tissue Mobility Strength Goals Three Impairment Activity tolerance Short Term Goal (STG) Saul 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 STG Duration 5 weeks Retirement Goal (LTG) Saul will stand for 30 minutes with pain of 4/10 or less. 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 STG Duration 5 weeks Retirement Goal (LTG) Saul will perform a squat to lift 20 pounds with good body mechanics without an increase in baseline pain. LTG Duration 10 weeks One Impairment Range of motion Short Term Goal (STG) Saul will increase his cervical range of motion to actively rotation 50 degrees bilaterally. STG Duration 5 weeks Hydroelectric Plant Structural Engineer Goal (LTG) Saul will increase his lumbar flexion range of motion to 40 degrees. LTG Duration 10 weeks Assessment Summary Assessment Saul presents to physical therapy with weakness and numbness in his neck and left arm, and back. He has had prior physical therapy and 2 steroid injections in his neck for his disc herniations. His neck pain and left arm numbness are currently improved after the injection, but he is concerned about the pain coming back. He does continue to have left sided weakness in the upper extremity. He will benefit from PT to improve his range of motion and strength and help him return to his prior level of function and full duty at work. Physical Therapy Plan Frequency and Duration Frequency of Treatment 2x/Week Duration of Treatment 10 weeks Plan of Care Start Date 02/01/18 Plan of Care End Date 04/12/17 Therapeutic Interventions Therapeutic Interventions Aquatic Therapy Gait Training Home Exercise Program Joint Mobilizations Manual Therapy Neuromuscular Re-education Self-Care/Home Management Therapeutic Activities Therapeutic Exercises Modalities Cold Pack/Ice Massage Electric Stimulation Hot Packs Traction- Mechanical Ultrasound Next Visit Focus/Plan Next Note Type Treatment Note Next Visit Plan Begin instruction in aquatic and land based HEP. Pain reduction, body mechanics, with improvement in AROM before extensive strengthening . Pt will need fpc strengthening to return to work.
--- NOTE | 2018-02-01 13:39 | PT.OPPOC ---
Current Diagnoses Other cervical disc degeneration, unspecified cervical region (02/01/18) Lumbago with sciatica, unspecified side (02/01/18) Provider Visit Care Team Role Provider Type López Terrazas Attending Provider Non-Staff Primary Care Provider Specialty: Medical Address: [address] [place] [address], [address], [phone] Email: Plan Of Care PT-OP-T Assessment and Plan Start: 02/01/18 07:02 Freq: Status: Active Protocol: Document 02/01/18 09:45 AMB (Rec: 02/06/18 13:37 AMB [email or web address]) Physical Therapy Assessment Rehab Potential Rehabilitation Potential Fair Evaluation Complexity Number of Personal Factors/Comorbidities 1-2 Number of Body Systems Impaired 4 or More Clinical Presentation at Evaluation Evolving Impairments Impairments Pain Posture ROM Soft Tissue Mobility Strength Goals Three Impairment Activity tolerance Short Term Goal (STG) Saul 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 STG Duration 5 weeks Wire Weaver Helper Goal (LTG) Saul will stand for 30 minutes with pain of 4/10 or less. LTG Duration 10 weeks Two Impairment Strength Short Term Goal (STG) Saul will increase his pulp drier strength to at least 50 pounds bilaterally. STG Duration 5 weeks Wire Weaver Helper Goal (LTG) Saul will perform a squat to lift 20 pounds with good body mechanics without an increase in baseline pain. LTG Duration 10 weeks One Impairment Range of motion Short Term Goal (STG) Saul will increase his cervical range of motion to actively rotation 50 degrees bilaterally. STG Duration 5 weeks Wire Weaver Helper Goal (LTG) Saul will increase his lumbar flexion range of motion to 40 degrees. LTG Duration 10 weeks Assessment Summary Assessment Saul presents to physical therapy with weakness and numbness in his neck and left arm, and back. He has had prior physical therapy and 2 steroid injections in his neck for his disc herniations. His neck pain and left arm numbness are currently improved after the injection, but he is concerned about the pain coming back. He does continue to have left sided weakness in the upper extremity. He will benefit from PT to improve his range of motion and strength and help him return to his prior level of function and full duty at work. Physical Therapy Plan Frequency and Duration Frequency of Treatment 2x/Week Duration of Treatment 10 weeks Plan of Care Start Date 02/01/18 Plan of Care End Date 04/12/17 Therapeutic Interventions Therapeutic Interventions Aquatic Therapy Gait Training Home Exercise Program Joint Mobilizations Manual Therapy Neuromuscular Re-education Self-Care/Home Management Therapeutic Activities Therapeutic Exercises Modalities Cold Pack/Ice Massage Electric Stimulation Hot Packs Traction- Mechanical Ultrasound Next Visit Focus/Plan Next Note Type Treatment Note Next Visit Plan Begin instruction in aquatic and land based HEP. Pain reduction, body mechanics, with improvement in AROM before extensive strengthening . 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 Plan of Care Dates Plan of Care Start Date 02/01/18 Plan of Care End Date 04/12/17 Please Sign and Return: I have reviewed this Plan of Care and certify that the skilled therapy services above are required to meet the patient?s needs. Physician Signature Date Printed Name and Credentials Clinical Instructor Signature Printed Name and Credentials
--- NOTE | 2018-03-01 15:12 | PT.OTN ---
Current Diagnoses Lumbago with sciatica, unspecified side (03/01/18) Physical Therapy Treatment Note PT-OP-A Visit Information Start: 02/01/18 07:02 Freq: Status: Active Protocol: Document 03/01/18 15:03 SAK (Rec: 03/01/18 15:12 SAK [id number]) Out-Patient Physical Therapy Visit Information Visit Information Visit Type Aquatic Treatment Note Visit Start Time 11:45 Visit Stop Time 12:30 Total Visit Minutes 45 Visit Number 2 Evaluation Information Evaluation Date 02/01/18 PT-OP-B Current Condition Start: 02/01/18 07:02 Freq: Status: Active Protocol: Document 02/01/18 09:45 AMB (Rec: 02/06/18 10:27 AMB [email or web address]) Current Condition History of Current Condition Onset Date 2 years ago Current Complaints neck and back pain with numbness History of Current Condition Lei attends physical therapy with neck pain and low back pain. 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 He reports numbness in his left buttocks that worsens with coughing. He reports history of left arm numbness constant in nature that has improved with recent steroid injection. Prior [place] reports that [place] made him nauseous, worked mostly on strengthening which he did not feel improved his symptoms. He has had 2 steroid injection in his cervical spine which has helped both his pain and the numbness that was going down the left arm. 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 02/16/17 disc bulges at L1-2, L2-3, and L3-4, close proximity to the L2 nerve root, but otherwise no evidence of nerve root compression. Treatment Goals Patient/Caregiver Goals Reduce pain/ numbness Prior Functional Status Baseline Function- ADL's Independent Baseline Function- Mobility Independent Current Functional Impairments (Reported) Functional Limitations- Work/School Unable to work full duty due to neck/back pain and numbness PT-OP-C Subjective Start: 02/01/18 07:02 Freq: Status: Active Protocol: Document 02/01/18 09:45 AMB (Rec: 02/06/18 10:27 AMB [email or web address]) Patient Questionnaires Neck Disability Index NDI Score 28 Neck Disability Index Impairment 40 to 59% Impaired (Score 20- 29) Quick Dash- Upper Extremity Quick Dash UE Score 59 Quick Dash UE Impairment 40 to 59% Impaired (Score 40- 59) PT-OP-F Manual Assessment Start: 02/01/18 07:02 Freq: Status: Active Protocol: Document 02/01/18 09:45 AMB (Rec: 02/06/18 13:14 AMB [email or web address]) Manual Assessments Soft Tissue Assessment Soft Tissue Mobility Assessment Tightness in levator scap and UT bilaterally, worse at the left, Joint Mobility Assessment Joint Mobility Assessment Tenderness with PAs but still springy PT-OP-J Posture/Palpation/Skin Start: 02/01/18 07:02 Freq: Status: Active Protocol: Document 02/01/18 09:45 AMB (Rec: 02/06/18 13:14 AMB [email or web address]) Posture Evaluation Comments Posture Comments flat lumbar spine with mild forward head PT-OP-K Range of Motion Start: 02/01/18 07:02 Freq: Status: Active Protocol: Document 02/01/18 09:45 AMB (Rec: 02/06/18 13:12 AMB [email or web address]) Cervical Spine Range of Motion Cervical Spine Active Degrees Testing Position Sitting Flexion 30 Extension 35 Rotation Left 50 Rotation Right 30 Lateral Flexion Left 20 Lateral Flexion Right 20 ROM Limitations Pain Lumbar Spine Range of Motion Lumbar Spine Active Degrees Testing Position Standing Flexion 10 Extension 10 Lateral Flexion Left 20 Lateral Flexion Right 20 ROM Limitations Pain Shoulder Goniometric Range of Motion Shoulder ROM Limitations Comments Tight into internal rotation and abduction on the left. PT-OP-L Special Tests Start: 02/01/18 07:02 Freq: Status: Active Protocol: Document 02/01/18 09:45 AMB (Rec: 02/06/18 13:12 AMB [email or web address]) Special Tests Lumbar Spine Special Tests Straight Leg Raise Test Results positive Comments for pain bilat at 50 degrees PT-OP-M Strength Start: 02/01/18 07:02 Freq: Status: Active Protocol: Document 02/01/18 09:45 AMB (Rec: 02/06/18 13:12 AMB [email or web address]) Hand Machine Heel Seat Fitter/Pinch Strength Hand Dominance Hand Dominance Right Hand Strength Right Machine Heel Seat Fitter (lbs) 60 Left Machine Heel Seat Fitter (lbs) 33 Hip Strength Hip Manual Muscle Testing Right Flexion (L2) 4 Good Extension (S1) 4 Good Abduction 4 Good Left Flexion (L2) 4 Good Extension (S1) 4- Good- Abduction 4 Good PT-OP-S Aquatic Treatment Start: 03/01/18 15:03 Freq: Status: Active Protocol: Document 03/01/18 15:03 [facility] (Rec: 03/01/18 15:12 [facility] [id number]) Aquatics Treatment Pool Entry/Exit Pool Entry/Exit Method Stairs Assistance Independent Water Walking walk holding noodle behind back Water Level Chest Level forward/bck/side Water Level Neck Level Comments verbal and manual cues for alignment Upper Extremity Exercises circles Body Position Standing Water Level Neck Level Reps/Duration 10x shoulder ER Body Position Standing Water Level Neck Level Reps/Duration 10x hor ab/ad, flex/ext, Body Position Standing Water Level Neck Level Reps/Duration 10x Comments clary and unil Upper Extremity Stretches corner stretch Reps/Duration 2x pec stretch; hands behind back Reps/Duration 2x levator scap stretch Reps/Duration 2x upper trap stretch Reps/Duration 2x [place] Activities [place] Activities Bicycle Cross [place] Other Activities deep water hang 1' x 2 Equipment flotation belt (L), hydrofit cuffs on UE's Duration 15 Comments verbal and manual cues for neutral postural alignment PT-OP-T Assessment and Plan Start: 02/01/18 07:02 Freq: Status: Active Protocol: Document 03/01/18 15:03 [facility] (Rec: 03/01/18 15:12 [facility] [id number]) Physical Therapy Assessment Goals Three Impairment Activity tolerance Short Term Goal (STG) Saul 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 STG Duration 5 weeks Intermediate Goal (LTG) Saul will stand for 30 minutes with pain of 4/10 or less. 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 STG Duration 5 weeks Group Exercise Manager Goal (LTG) Saul will perform a squat to lift 20 pounds with good body mechanics without an increase in baseline pain. LTG Duration 10 weeks One Impairment Range of motion Short Term Goal (STG) Saul will increase his cervical range of motion to actively rotation 50 degrees bilaterally. STG Duration 5 weeks Intermediate Goal (LTG) Saul will increase his lumbar flexion range of motion to 40 degrees. LTG Duration 10 weeks Assessment Summary Assessment Lei requires moderate verbal and manual cues for postural alignment and core stabilization. Denied increase in pain or other symptoms, but at end of time in deep water reported feeling nauseous, better approx 1 min after going to shallow water. Physical Therapy Plan Frequency and Duration Frequency of Treatment 2x/Week Duration of Treatment 10 weeks Plan of Care Start Date 02/01/18 Plan of Care End Date 04/12/17 Therapeutic Interventions Therapeutic Interventions Aquatic Therapy Gait Training Home Exercise Program Joint Mobilizations Manual Therapy Neuromuscular Re-education Self-Care/Home Management Therapeutic Activities Therapeutic Exercises Modalities Cold Pack/Ice Massage Electric Stimulation Hot Packs Traction- Mechanical Ultrasound Next Visit Focus/Plan Next Note Type Treatment Note Next Visit Plan Assess response to first aquatic PT session, initiate land-based PT.
--- NOTE | 2018-03-06 10:11 | PT.OTN ---
Current Diagnoses Lumbago with sciatica, unspecified side (03/05/18) Physical Therapy Treatment Note PT-OP-A Visit Information Start: 02/01/18 07:02 Freq: Status: Active Protocol: Document 03/06/18 09:58 [facility] (Rec: 03/06/18 10:11 [facility] [email or web address]) Out-Patient Physical Therapy Visit Information Visit Information Visit Type Treatment Note Visit Start Time 10:30 Visit Stop Time 11:15 Total Visit Minutes 45 Visit Number 3 Evaluation Information Evaluation Date 02/01/18 PT-OP-B Current Condition Start: 02/01/18 07:02 Freq: Status: Active Protocol: Document 02/01/18 09:45 AMB (Rec: 02/06/18 10:27 AMB [email or web address]) Current Condition History of Current Condition Onset Date 2 years ago Current Complaints neck and back pain with numbness History of Current Condition Saul attends physical therapy with neck pain and low back pain. 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 He reports numbness in his left buttocks that worsens with coughing. He reports history of left arm numbness constant in nature that has improved with recent steroid injection. Prior Treatments and [place] pt reports that traction made him nauseous, worked mostly on strengthening which he did not feel improved his symptoms. He has had 2 steroid injection in his cervical spine which has helped both his pain and the numbness that was going down the left arm. 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 02/16/17 disc bulges at L1-2, L2-3, and L3-4, close proximity to the L2 nerve root, but otherwise no evidence of nerve root compression. Treatment Goals Patient/Caregiver Goals Reduce pain/ numbness Prior Functional Status Baseline Function- ADL's Independent Baseline Function- Mobility Independent Current Functional Impairments (Reported) Functional Limitations- Work/School Unable to work full duty due to neck/back pain and numbness PT-OP-C Subjective Start: 02/01/18 07:02 Freq: Status: Active Protocol: Document 03/06/18 09:58 [facility] (Rec: 03/06/18 10:11 [facility] [email or web address]) OP-PT Subjective Patient Comments Patient Comments Saul reports he did get some relief from his cortisone injection however he is still feeling the numb and tightness feeling down his left UE. He would like to work on both the neck and back today PT-OP-F Manual Assessment Start: 02/01/18 07:02 Freq: Status: Active Protocol: Document 02/01/18 09:45 AMB (Rec: 02/06/18 13:14 AMB [email or web address]) Manual Assessments Soft Tissue Assessment Soft Tissue Mobility Assessment Tightness in levator scap and UT bilaterally, worse at the left, Joint Mobility Assessment Joint Mobility Assessment Tenderness with PAs but still springy PT-OP-J Posture/Palpation/Skin Start: 02/01/18 07:02 Freq: Status: Active Protocol: Document 02/01/18 09:45 AMB (Rec: 02/06/18 13:14 AMB [email or web address]) Posture Evaluation Comments Posture Comments flat lumbar spine with mild forward head PT-OP-K Range of Motion Start: 02/01/18 07:02 Freq: Status: Active Protocol: Document 02/01/18 09:45 AMB (Rec: 02/06/18 13:12 AMB [email or web address]) Cervical Spine Range of Motion Cervical Spine Active Degrees Testing Position Sitting Flexion 30 Extension 35 Rotation Left 50 Rotation Right 30 Lateral Flexion Left 20 Lateral Flexion Right 20 ROM Limitations Pain Lumbar Spine Range of Motion Lumbar Spine Active Degrees Testing Position Standing Flexion 10 Extension 10 Lateral Flexion Left 20 Lateral Flexion Right 20 ROM Limitations Pain Shoulder Goniometric Range of Motion Shoulder ROM Limitations Comments Tight into internal rotation and abduction on the left. PT-OP-L Special Tests Start: 02/01/18 07:02 Freq: Status: Active Protocol: Document 02/01/18 09:45 AMB (Rec: 02/06/18 13:12 AMB [email or web address]) Special Tests Lumbar Spine Special Tests Straight Leg Raise Test Results positive Comments for pain bilat at 50 degrees PT-OP-M Strength Start: 02/01/18 07:02 Freq: Status: Active Protocol: Document 02/01/18 09:45 AMB (Rec: 02/06/18 13:12 AMB [email or web address]) Hand Road Cleaner/Pinch Strength Hand Dominance Hand Dominance Right Hand Strength Right Road Cleaner (lbs) [address] Cleaner (lbs) 33 Hip Strength Hip Manual Muscle Testing Right Flexion (L2) 4 Good Extension (S1) 4 Good Abduction 4 Good Left Flexion (L2) 4 Good Extension (S1) 4- Good- Abduction 4 Good PT-OP-Q Treatments Start: 02/01/18 07:02 Freq: Status: Active Protocol: Document 03/06/18 09:58 [facility] (Rec: 03/06/18 10:11 [facility] [email or web address]) Therapeutic Exercises Supine Exercises 4 Supine Exercise Name piriformis stretch Comments figure 4 3 Supine Exercise Name hamstring stretch with strap 2 Supine Exercise Name 1/2 foam roll pec minor stretch Side bilateral Comments added in shoulder abduction, shoulder bilateral and alternating arm flexion 1 Supine Exercise Name supine chin tuck Reps/Minutes x 10 reps Comments pt needs to avoid overuse of his SCM as he substitutes for his deep flexors Standing Exercises 2 Standing Exercise Name standing door way pec minor stretch Comments back kept in neutral to avoid LBP 1 Standing Exercise Name standing nerve glides using the wall, left elbow bent, palm on wall Side bilateral Comments left palm on wall, sidebend C spine R, straighten left arm as tolerated Other Exercises 1/2 kneeling hip flexor stretch Other Exercise Name 1/2 kneeling hip flexor stretch Side bilateral Manual Therapy Treatment Soft Tissue Mobilization 3 Body Location manual scalene stretching B 2 Body Location suboccipital release 1 Body Location MFR to the SCM's bilateraly Mobilization Type Myofascial Release Body Position Hooklying Manual Techniques 1 Type median nerve glides using ULTT 1 postitions Reps/Duration x 10 reps Comments good tolerance Self-Care/Home Management Treatment Education Patient Education Home Exercise Program Other Education pt given written handout of HEP PT-OP-R Modalities Start: 02/01/18 07:02 Freq: Status: Active Protocol: Document 03/06/18 09:58 [facility] (Rec: 03/06/18 10:11 [facility] [email or web address]) Electric Stimulation Electric Stimulation Pre-Modulated Body Location cervcial spine and left low back Combined With Heat/Cold Cold Pack PT-OP-S Aquatic Treatment Start: 03/01/18 15:03 Freq: Status: Active Protocol: Document 03/01/18 15:03 SAK (Rec: 03/01/18 15:12 SAK [id number]) Aquatics Treatment Pool Entry/Exit Pool Entry/Exit Method Stairs Assistance Independent Water Walking walk holding noodle behind back Water Level Chest Level forward/bck/side Water Level Neck Level Comments verbal and manual cues for alignment Upper Extremity Exercises circles Body Position Standing Water Level Neck Level Reps/Duration 10x shoulder ER Body Position Standing Water Level Neck Level Reps/Duration 10x hor ab/ad, flex/ext, Body Position Standing Water Level Neck Level Reps/Duration 10x Comments clary and unil Upper Extremity Stretches corner stretch Reps/Duration 2x pec stretch; hands behind back Reps/Duration 2x levator scap stretch Reps/Duration 2x upper trap stretch Reps/Duration 2x [place] Activities [place] Activities Bicycle [place] Other Activities deep water hang 1' x 2 Equipment flotation belt (L), hydrofit cuffs on UE's Duration 15 Comments verbal and manual cues for neutral postural alignment PT-OP-T Assessment and Plan Start: 02/01/18 07:02 Freq: Status: Active Protocol: Document 03/06/18 09:58 [facility] (Rec: 03/06/18 10:11 [facility] [email or web address]) Physical Therapy Assessment Assessment Summary Assessment still feeling numbness into the left arm and this is reproduced today with pec minor stretches. Tried full foam roll which was too much so switched to 1/2 roll which he could tolerate. Began manual nerve glides which helped to lessen his symptoms and pt shown self nerve gliding with hand against the wall. Began gentle chin tucks which he tends to substitute with SCM for so he needs verbal cueing for this. He would benefit from continued MFR for the SCM and continued postural education/stretching. Physical Therapy Plan Frequency and Duration Frequency of Treatment 2x/Week Duration of Treatment 10 weeks Plan of Care Start Date 02/01/18 Plan of Care End Date 04/12/17 Therapeutic Interventions Therapeutic Interventions Aquatic Therapy Gait Training Home Exercise Program Joint Mobilizations Manual Therapy Neuromuscular Re-education Self-Care/Home Management Therapeutic Activities Therapeutic Exercises Modalities Cold Pack/Ice Massage Electric Stimulation Hot Packs Traction- Mechanical Ultrasound Next Visit Focus/Plan Next Note Type Treatment Note Next Visit Plan continue to progress postural modifications and stretchings working to decrease radicular symptoms
--- NOTE | 2018-03-08 14:40 | PT.OTN ---
Current Diagnoses Lumbago with sciatica, unspecified side (03/08/18) Physical Therapy Treatment Note PT-OP-A Visit Information Start: 02/01/18 07:02 Freq: Status: Active Protocol: Document 03/08/18 11:00 SAK (Rec: 03/08/18 14:36 SAK [id number]) Out-Patient Physical Therapy Visit Information Visit Information Visit Type Treatment Note Visit Start Time 11:00 Visit Stop Time 11:45 Total Visit Minutes 45 Visit Number 4 Number of NEUROSCIENCE DIRECTOR NA Visits 0 Evaluation Information Evaluation Date 02/01/18 PT-OP-B Current Condition Start: 02/01/18 07:02 Freq: Status: Active Protocol: Document 02/01/18 09:45 AMB (Rec: 02/06/18 10:27 AMB [email or web address]) Current Condition History of Current Condition Onset Date 2 years ago Current Complaints neck and back pain with numbness History of Current Condition Lei attends physical therapy with neck pain and low back pain. 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 He reports numbness in his left buttocks that worsens with coughing. He reports history of left arm numbness constant in nature that has improved with recent steroid injection. [place] made him nauseous, worked mostly on strengthening which he did not feel improved his symptoms. He has had 2 steroid injection in his cervical spine which has helped both his pain and the numbness that was going down the left arm. 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 02/16/17 disc bulges at L1-2, L2-3, and L3-4, close proximity to the L2 nerve root, but otherwise no evidence of nerve root compression. Treatment Goals Patient/Caregiver Goals Reduce pain/ numbness Prior Functional Status Baseline Function- ADL's Independent Baseline Function- Mobility Independent Current Functional Impairments (Reported) Functional Limitations- Work/School Unable to work full duty due to neck/back pain and numbness PT-OP-C Subjective Start: 02/01/18 07:02 Freq: Status: Active Protocol: Document 03/08/18 11:00 SAK (Rec: 03/08/18 14:36 SAK [id number]) OP-PT Subjective Patient Comments Patient Comments Reports feeling therapy helpful, states after first aquatic therapy session he felt decrease in pain especially in low back. States he has increased neck and UE symptoms after sitting for a little while either in a meeting or class, or at computer. PT-OP-F Manual Assessment Start: 02/01/18 07:02 Freq: Status: Active Protocol: Document 02/01/18 09:45 AMB (Rec: 02/06/18 13:14 AMB [email or web address]) Manual Assessments Soft Tissue Assessment Soft Tissue Mobility Assessment Tightness in levator scap and UT bilaterally, worse at the left, Joint Mobility Assessment Joint Mobility Assessment Tenderness with PAs but still springy PT-OP-J Posture/Palpation/Skin Start: 02/01/18 07:02 Freq: Status: Active Protocol: Document 02/01/18 09:45 AMB (Rec: 02/06/18 13:14 AMB [email or web address]) Posture Evaluation Comments Posture Comments flat lumbar spine with mild forward head PT-OP-K Range of Motion Start: 02/01/18 07:02 Freq: Status: Active Protocol: Document 02/01/18 09:45 AMB (Rec: 02/06/18 13:12 AMB [email or web address]) Cervical Spine Range of Motion Cervical Spine Active Degrees Testing Position Sitting Flexion 30 Extension 35 Rotation Left 50 Rotation Right 30 Lateral Flexion Left 20 Lateral Flexion Right 20 ROM Limitations Pain Lumbar Spine Range of Motion Lumbar Spine Active Degrees Testing Position Standing Flexion 10 Extension 10 Lateral Flexion Left 20 Lateral Flexion Right 20 ROM Limitations Pain Shoulder Goniometric Range of Motion Shoulder ROM Limitations Comments Tight into internal rotation and abduction on the left. PT-OP-L Special Tests Start: 02/01/18 07:02 Freq: Status: Active Protocol: Document 02/01/18 09:45 AMB (Rec: 02/06/18 13:12 AMB [email or web address]) Special Tests Lumbar Spine Special Tests Straight Leg Raise Test Results positive Comments for pain bilat at 50 degrees PT-OP-M Strength Start: 02/01/18 07:02 Freq: Status: Active Protocol: Document 02/01/18 09:45 AMB (Rec: 02/06/18 13:12 AMB [email or web address]) Hand Heavy Line Technician/Pinch Strength Hand Dominance Hand Dominance Right Hand Strength Right Heavy Line Technician (lbs) 60 Left Heavy Line Technician (lbs) 33 Hip Strength Hip Manual Muscle Testing Right Flexion (L2) 4 Good Extension (S1) 4 Good Abduction 4 Good Left Flexion (L2) 4 Good Extension (S1) 4- Good- Abduction 4 Good PT-OP-Q Treatments Start: 02/01/18 07:02 Freq: Status: Active Protocol: Document 03/05/18 09:58 ON LICENSE OF [facility] (Rec: 03/06/18 10:11 [facility]H [email or web address]) Therapeutic Exercises Supine Exercises 4 Supine Exercise Name piriformis stretch Comments figure 4 3 Supine Exercise Name hamstring stretch with strap 2 Supine Exercise Name 1/2 foam roll pec minor stretch Side bilateral Comments added in shoulder abduction, shoulder bilateral and alternating arm flexion 1 Supine Exercise Name supine chin tuck Reps/Minutes x 10 reps Comments pt needs to avoid overuse of his SCM as he substitutes for his deep flexors Standing Exercises 2 Standing Exercise Name standing door way pec minor stretch Comments back kept in neutral to avoid LBP 1 Standing Exercise Name standing nerve glides using the wall, left elbow bent, palm on wall Side bilateral Comments left palm on wall, sidebend C spine R, straighten left arm as tolerated Other Exercises 1/2 kneeling hip flexor stretch Other Exercise Name 1/2 kneeling hip flexor stretch Side bilateral Manual Therapy Treatment Soft Tissue Mobilization 3 Body Location manual scalene stretching B 2 Body Location suboccipital release 1 Body Location MFR to the SCM's bilateraly Mobilization Type Myofascial Release Body Position Hooklying Manual Techniques 1 Type median nerve glides using ULTT 1 postitions Reps/Duration x 10 reps Comments good tolerance Self-Care/Home Management Treatment Education Patient Education Home Exercise Program Other Education pt given written handout of HEP PT-OP-R Modalities Start: 02/01/18 07:02 Freq: Status: Active Protocol: Document 03/05/18 09:58 ON LICENSE OF [facility] (Rec: 03/06/18 10:11 ON LICENSE OF [facility] [id number]) Electric Stimulation Electric Stimulation Pre-Modulated Body Location cervcial spine and left low back Combined With Heat/Cold Cold Pack PT-OP-S Aquatic Treatment Start: 03/01/18 15:03 Freq: Status: Active Protocol: Document 03/08/18 11:00 SAK (Rec: 03/08/18 14:40 SAK [id number]) Aquatics Treatment Pool Entry/Exit Pool Entry/Exit Method Stairs Assistance Independent Water Walking walk holding noodle behind back Water Level Chest Level Comments for anterior chest stretch, postural alignment and core stab forward/bck/side Comments emphasis on postural alignment and core stab Lower Extremity Stretches hamstring, ITB Body Position Standing Equipment Large Noodle Reps/Duration 2x Upper Extremity Exercises circles Body Position Standing Water Level Neck Level Reps/Duration 10x shoulder ER Body Position Standing Water Level Neck Level Reps/Duration 10x hor ab/ad, flex/ext, Body Position Standing Water Level Neck Level Reps/Duration 10x Comments clary and unil Upper Extremity Stretches corner stretch Reps/Duration 2x pec stretch; hands behind back Reps/Duration 2x levator scap stretch Reps/Duration 2x upper trap stretch Reps/Duration 2x [place] Activities [place] Activities Bicycle Bicycle Backwards Cross Country Running Other Activities deep water hang 1' x 2 bicycle holding barbells at sides Equipment flotation belt (L), hydrofit cuffs on UE's Duration 20 Comments verbal and manual cues for neutral postural alignment Swim Strokes Backstroke Laps/Duration 15m x 2 Elementary Backstroke Laps/Duration 15m x 2 PT-OP-T Assessment and Plan Start: 02/01/18 07:02 Freq: Status: Active Protocol: Document 03/08/18 11:00 [facility] (Rec: 03/08/18 14:36 [facility] [id number]) Physical Therapy Assessment Goals Three Impairment Activity tolerance Short Term Goal (STG) Saul 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 STG Duration 5 weeks Halfway Goal (LTG) Saul will stand for 30 minutes with pain of 4/10 or less. 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 STG Duration 5 weeks Halfway Goal (LTG) Saul will perform a squat to lift 20 pounds with good body mechanics without an increase in baseline pain. LTG Duration 10 weeks One Impairment Range of motion Short Term Goal (STG) Saul will increase his cervical range of motion to actively rotation 50 degrees bilaterally. STG Duration 5 weeks Airset Caster Goal (LTG) Saul will increase his lumbar flexion range of motion to 40 degrees. LTG Duration 10 weeks Assessment Summary Assessment Tolerated aquatic therapy session well with moderate cues for postural alignment and core stabilization. Able to progress ther ex addressing low back and cervical spine pain and radicular symptoms. Physical Therapy Plan Frequency and Duration Frequency of Treatment 2x/Week Duration of Treatment 10 weeks Plan of Care Start Date 02/01/18 Plan of Care End Date 04/12/17 Therapeutic Interventions Therapeutic Interventions Aquatic Therapy Gait Training Home Exercise Program Joint Mobilizations Manual Therapy Neuromuscular Re-education Self-Care/Home Management Therapeutic Activities Therapeutic Exercises Modalities Cold Pack/Ice Massage Electric Stimulation Hot Packs Traction- Mechanical Ultrasound Next Visit Focus/Plan Next Note Type Treatment Note Next Visit Plan continue to progress postural modifications and stretchings working to decrease radicular symptoms; combination land and aquatic therapy.
--- NOTE | 2018-03-08 14:40 | PT.OTN ---
Current Diagnoses Lumbago with sciatica, unspecified side (03/08/18) Physical Therapy Treatment Note PT-OP-A Visit Information Start: 02/01/18 07:02 Freq: Status: Active Protocol: Document 03/08/18 11:00 SAK (Rec: 03/08/18 14:36 SAK [id number]) Out-Patient Physical Therapy Visit Information Visit Information Visit Type Treatment Note Visit Start Time 11:00 Visit Stop Time 11:45 Total Visit Minutes 45 Visit Number 4 Number of VOLUNTEER ASSISTANT Visits 0 Evaluation Information Evaluation Date 02/01/18 PT-OP-B Current Condition Start: 02/01/18 07:02 Freq: Status: Active Protocol: Document 02/01/18 09:45 AMB (Rec: 02/06/18 10:27 AMB [email or web address]) Current Condition History of Current Condition Onset Date 2 years ago Current Complaints neck and back pain with numbness History of Current Condition Lei attends physical therapy with neck pain and low back pain. 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 He reports numbness in his left buttocks that worsens with coughing. He reports history of left arm numbness constant in nature that has improved with recent steroid injection. Prior Treatments and [place] pt reports that traction made him nauseous, worked mostly on strengthening which he did not feel improved his symptoms. He has had 2 steroid injection in his cervical spine which has helped both his pain and the numbness that was going down the left arm. 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 02/16/17 disc bulges at L1-2, L2-3, and L3-4, close proximity to the L2 nerve root, but otherwise no evidence of nerve root compression. Treatment Goals Patient/Caregiver Goals Reduce pain/ numbness Prior Functional Status Baseline Function- ADL's Independent Baseline Function- Mobility Independent Current Functional Impairments (Reported) Functional Limitations- Work/School Unable to work full duty due to neck/back pain and numbness PT-OP-C Subjective Start: 02/01/18 07:02 Freq: Status: Active Protocol: Document 03/08/18 11:00 SAK (Rec: 03/08/18 14:36 SAK [id number]) OP-PT Subjective Patient Comments Patient Comments Reports feeling therapy helpful, states after first aquatic therapy session he felt decrease in pain especially in low back. States he has increased neck and UE symptoms after sitting for a little while either in a meeting or class, or at computer. PT-OP-F Manual Assessment Start: 02/01/18 07:02 Freq: Status: Active Protocol: Document 02/01/18 09:45 AMB (Rec: 02/06/18 13:14 AMB [email or web address]) Manual Assessments Soft Tissue Assessment Soft Tissue Mobility Assessment Tightness in levator scap and UT bilaterally, worse at the left, Joint Mobility Assessment Joint Mobility Assessment Tenderness with PAs but still springy PT-OP-J Posture/Palpation/Skin Start: 02/01/18 07:02 Freq: Status: Active Protocol: Document 02/01/18 09:45 AMB (Rec: 02/06/18 13:14 AMB [email or web address]) Posture Evaluation Comments Posture Comments flat lumbar spine with mild forward head PT-OP-K Range of Motion Start: 02/01/18 07:02 Freq: Status: Active Protocol: Document 02/01/18 09:45 AMB (Rec: 02/06/18 13:12 AMB [email or web address]) Cervical Spine Range of Motion Cervical Spine Active Degrees Testing Position Sitting Flexion 30 Extension 35 Rotation Left 50 Rotation Right 30 Lateral Flexion Left 20 Lateral Flexion Right 20 ROM Limitations Pain Lumbar Spine Range of Motion Lumbar Spine Active Degrees Testing Position Standing Flexion 10 Extension 10 Lateral Flexion Left 20 Lateral Flexion Right 20 ROM Limitations Pain Shoulder Goniometric Range of Motion Shoulder ROM Limitations Comments Tight into internal rotation and abduction on the left. PT-OP-L Special Tests Start: 02/01/18 07:02 Freq: Status: Active Protocol: Document 02/01/18 09:45 AMB (Rec: 02/06/18 13:12 AMB [email or web address]) Special Tests Lumbar Spine Special Tests Straight Leg Raise Test Results positive Comments for pain bilat at 50 degrees PT-OP-M Strength Start: 02/01/18 07:02 Freq: Status: Active Protocol: Document 02/01/18 09:45 AMB (Rec: 02/06/18 13:12 AMB [email or web address]) Hand Tennis Coach/Pinch Strength Hand Dominance Hand Dominance Right Hand Strength Right Tennis Coach (lbs) 60 Left Tennis Coach (lbs) 33 Hip Strength Hip Manual Muscle Testing Right Flexion (L2) 4 Good Extension (S1) 4 Good Abduction 4 Good Left Flexion (L2) 4 Good Extension (S1) 4- Good- Abduction 4 Good PT-OP-Q Treatments Start: 02/01/18 07:02 Freq: Status: Active Protocol: Document 03/05/18 09:58 [facility] (Rec: 03/06/18 10:11 AMH [email or web address]) Therapeutic Exercises Supine Exercises 4 Supine Exercise Name piriformis stretch Comments figure 4 3 Supine Exercise Name hamstring stretch with strap 2 Supine Exercise Name 1/2 foam roll pec minor stretch Side bilateral Comments added in shoulder abduction, shoulder bilateral and alternating arm flexion 1 Supine Exercise Name supine chin tuck Reps/Minutes x 10 reps Comments pt needs to avoid overuse of his SCM as he substitutes for his deep flexors Standing Exercises 2 Standing Exercise Name standing door way pec minor stretch Comments back kept in neutral to avoid LBP 1 Standing Exercise Name standing nerve glides using the wall, left elbow bent, palm on wall Side bilateral Comments left palm on wall, sidebend C spine R, straighten left arm as tolerated Other Exercises 1/2 kneeling hip flexor stretch Other Exercise Name 1/2 kneeling hip flexor stretch Side bilateral Manual Therapy Treatment Soft Tissue Mobilization 3 Body Location manual scalene stretching B 2 Body Location suboccipital release 1 Body Location MFR to the SCM's bilateraly Mobilization Type Myofascial Release Body Position Hooklying Manual Techniques 1 Type median nerve glides using ULTT 1 postitions Reps/Duration x 10 reps Comments good tolerance Self-Care/Home Management Treatment Education Patient Education Home Exercise Program Other Education pt given written handout of HEP PT-OP-R Modalities Start: 02/01/18 07:02 Freq: Status: Active Protocol: Document 03/05/18 09:58 [facility] (Rec: 03/06/18 10:11 [facility] [email or web address]) Electric Stimulation Electric Stimulation Pre-Modulated Body Location cervcial spine and left low back Combined With Heat/Cold Cold Pack PT-OP-S Aquatic Treatment Start: 03/01/18 15:03 Freq: Status: Active Protocol: Document 03/08/18 11:00 SAK (Rec: 03/08/18 14:40 SAK [id number]) Aquatics Treatment Pool Entry/Exit Pool Entry/Exit Method Stairs Assistance Independent Water Walking walk holding noodle behind back Water Level Chest Level Comments for anterior chest stretch, postural alignment and core stab forward/bck/side Comments emphasis on postural alignment and core stab Lower Extremity Stretches hamstring, ITB Body Position Standing Equipment Large Noodle Reps/Duration 2x Upper Extremity Exercises circles Body Position Standing Water Level Neck Level Reps/Duration 10x shoulder ER Body Position Standing Water Level Neck Level Reps/Duration 10x hor ab/ad, flex/ext, Body Position Standing Water Level Neck Level Reps/Duration 10x Comments clary and unil Upper Extremity Stretches corner stretch Reps/Duration 2x pec stretch; hands behind back Reps/Duration 2x levator scap stretch Reps/Duration 2x upper trap stretch Reps/Duration 2x [place] Activities [place] Activities Bicycle Bicycle Backwards Cross Country Running Other Activities deep water hang 1' x 2 bicycle holding barbells at sides Equipment flotation belt (L), hydrofit cuffs on UE's Duration 20 Comments verbal and manual cues for neutral postural alignment Swim Strokes Backstroke Laps/Duration 15m x 2 Elementary Backstroke Laps/Duration 15m x 2 PT-OP-T Assessment and Plan Start: 02/01/18 07:02 Freq: Status: Active Protocol: Document 03/08/18 11:00 [facility] (Rec: 03/08/18 14:36 [facility] [id number]) Physical Therapy Assessment Goals Three Impairment Activity tolerance Short Term Goal (STG) Saul 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 STG Duration 5 weeks Detention Goal (LTG) Saul will stand for 30 minutes with pain of 4/10 or less. LTG Duration 10 weeks Two Impairment Strength Short Term Goal (STG) Saul will increase his executive officer strength to at least 50 pounds bilaterally. STG Duration 5 weeks Detention Goal (LTG) Saul will perform a squat to lift 20 pounds with good body mechanics without an increase in baseline pain. LTG Duration 10 weeks One Impairment Range of motion Short Term Goal (STG) Saul will increase his cervical range of motion to actively rotation 50 degrees bilaterally. STG Duration 5 weeks Filter Washer Goal (LTG) Saul will increase his lumbar flexion range of motion to 40 degrees. LTG Duration 10 weeks Assessment Summary Assessment Tolerated aquatic therapy session well with moderate cues for postural alignment and core stabilization. Able to progress ther ex addressing low back and cervical spine pain and radicular symptoms. Physical Therapy Plan Frequency and Duration Frequency of Treatment 2x/Week Duration of Treatment 10 weeks Plan of Care Start Date 02/01/18 Plan of Care End Date 04/12/17 Therapeutic Interventions Therapeutic Interventions Aquatic Therapy Gait Training Home Exercise Program Joint Mobilizations Manual Therapy Neuromuscular Re-education Self-Care/Home Management Therapeutic Activities Therapeutic Exercises Modalities Cold Pack/Ice Massage Electric Stimulation Hot Packs Traction- Mechanical Ultrasound Next Visit Focus/Plan Next Note Type Treatment Note Next Visit Plan continue to progress postural modifications and stretchings working to decrease radicular symptoms; combination land and aquatic therapy.
--- NOTE | 2018-03-12 11:33 | PT.OTN ---
Current Diagnoses Lumbago with sciatica, unspecified side (03/12/18) Physical Therapy Treatment Note PT-OP-A Visit Information Start: 02/01/18 07:02 Freq: Status: Active Protocol: Document 03/12/18 11:23 SA (Rec: 03/12/18 11:33 SA [email or web address]) Out-Patient Physical Therapy Visit Information Visit Information Visit Type Treatment Note Visit Start Time 09:48 Visit Stop Time 10:38 Total Visit Minutes 50 Visit Number 5 Number of HEALTH SERVICES DIRECTOR Visits 1 PT-OP-B Current Condition Start: 02/01/18 07:02 Freq: Status: Active Protocol: Document 02/01/18 09:45 AMB (Rec: 02/06/18 10:27 AMB [email or web address]) Current Condition History of Current Condition Onset Date 2 years ago Current Complaints neck and back pain with numbness History of Current Condition Lei attends physical therapy with neck pain and low back pain. 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 He reports numbness in his left buttocks that worsens with coughing. He reports history of left arm numbness constant in nature that has improved with recent steroid injection. Prior [place] made him nauseous, worked mostly on strengthening which he did not feel improved his symptoms. He has had 2 steroid injection in his cervical spine which has helped both his pain and the numbness that was going down the left arm. 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 02/16/17 disc bulges at L1-2, L2-3, and L3-4, close proximity to the L2 nerve root, but otherwise no evidence of nerve root compression. Treatment Goals Patient/Caregiver Goals Reduce pain/ numbness Prior Functional Status Baseline Function- ADL's Independent Baseline Function- Mobility Independent Current Functional Impairments (Reported) Functional Limitations- Work/School Unable to work full duty due to neck/back pain and numbness PT-OP-C Subjective Start: 02/01/18 07:02 Freq: Status: Active Protocol: Document 03/12/18 11:23 SA (Rec: 03/12/18 11:33 SA [email or web address]) OP-PT Subjective Patient Comments Patient Comments Pt reports continued LUE redicular symptoms and cervical tightness and discomfort. Has been consistent with chin tucks and stretching. PT-OP-F Manual Assessment Start: 02/01/18 07:02 Freq: Status: Active Protocol: Document 02/01/18 09:45 AMB (Rec: 02/06/18 13:14 AMB [email or web address]) Manual Assessments Soft Tissue Assessment Soft Tissue Mobility Assessment Tightness in levator scap and UT bilaterally, worse at the left, Joint Mobility Assessment Joint Mobility Assessment Tenderness with PAs but still springy PT-OP-J Posture/Palpation/Skin Start: 02/01/18 07:02 Freq: Status: Active Protocol: Document 02/01/18 09:45 AMB (Rec: 02/06/18 13:14 AMB [email or web address]) Posture Evaluation Comments Posture Comments flat lumbar spine with mild forward head PT-OP-K Range of Motion Start: 02/01/18 07:02 Freq: Status: Active Protocol: Document 02/01/18 09:45 AMB (Rec: 02/06/18 13:12 AMB [email or web address]) Cervical Spine Range of Motion Cervical Spine Active Degrees Testing Position Sitting Flexion 30 Extension 35 Rotation Left 50 Rotation Right 30 Lateral Flexion Left 20 Lateral Flexion Right 20 ROM Limitations Pain Lumbar Spine Range of Motion Lumbar Spine Active Degrees Testing Position Standing Flexion 10 Extension 10 Lateral Flexion Left 20 Lateral Flexion Right 20 ROM Limitations Pain Shoulder Goniometric Range of Motion Shoulder ROM Limitations Comments Tight into internal rotation and abduction on the left. PT-OP-L Special Tests Start: 02/01/18 07:02 Freq: Status: Active Protocol: Document 02/01/18 09:45 AMB (Rec: 02/06/18 13:12 AMB [email or web address]) Special Tests Lumbar Spine Special Tests Straight Leg Raise Test Results positive Comments for pain bilat at 50 degrees PT-OP-M Strength Start: 02/01/18 07:02 Freq: Status: Active Protocol: Document 02/01/18 09:45 AMB (Rec: 02/06/18 13:12 AMB [email or web address]) Hand C++ Professor/Pinch Strength Hand Dominance Hand Dominance Right Hand Strength Right C++ Professor (lbs) 60 Left C++ Professor (lbs) 33 Hip Strength Hip Manual Muscle Testing Right Flexion (L2) 4 Good Extension (S1) 4 Good Abduction 4 Good Left Flexion (L2) 4 Good Extension (S1) 4- Good- Abduction 4 Good PT-OP-Q Treatments Start: 02/01/18 07:02 Freq: Status: Active Protocol: Document 03/12/18 11:23 SA (Rec: 03/12/18 11:33 SA [email or web address]) Cardio Equipment Upper Body Ergometer (UBE) Duration (Minutes) 5 RPM 60 Other forward/backward Therapeutic Exercises Supine Exercises 4 Supine Exercise Name piriformis stretch Reps/Minutes 30 x 3 Comments figure 4 3 Supine Exercise Name hamstring stretch with strap Side bilateral Comments muscle energy technique 2 Supine Exercise Name 1/2 foam roll pec minor stretch Side bilateral Comments added in shoulder abduction, shoulder bilateral and alternating arm flexion 1 Supine Exercise Name supine chin tuck Reps/Minutes 15x Comments pt needs to avoid overuse of his SCM as he substitutes for his deep flexors Standing Exercises Standing postural wall stretch Side bilateral Reps/Minutes 30 x 4 Comments cues for cervical retraction Other Exercises 1/2 kneeling hip flexor stretch Other Exercise Name 1/2 kneeling hip flexor stretch Side bilateral Manual Therapy Treatment Soft Tissue Mobilization 2 Body Location suboccipital release Intensity/Depth Moderate Body Position Supine 1 Body Location MFR to the SCM's bilateraly Mobilization Type Myofascial Release Body Position Supine Manual Techniques 1 Type median nerve glides using ULTT 1 postitions Reps/Duration x 10 reps Comments good tolerance PT-OP-R Modalities Start: 02/01/18 07:02 Freq: Status: Active Protocol: Document 03/12/18 11:23 (Rec: 03/12/18 11:33 [email or web address]) Hot Pack/Cold Pack Treatment Hot pack/Cold pack Location Low back/CP Patient Position Supine Treatment Duration (minutes) 10 Comments C-spine/Hot pack PT-OP-S Aquatic Treatment Start: 03/01/18 15:03 Freq: Status: Active Protocol: Document 03/08/18 11:00 [facility] (Rec: 03/08/18 14:40 [facility] [id number]) Aquatics Treatment Pool Entry/Exit Pool Entry/Exit Method Stairs Assistance Independent Water Walking walk holding noodle behind back Water Level Chest Level Comments for anterior chest stretch, postural alignment and core stab forward/bck/side Comments emphasis on postural alignment and core stab Lower Extremity Stretches hamstring, ITB Body Position Standing Equipment Large Noodle Reps/Duration 2x Upper Extremity Exercises circles Body Position Standing Water Level Neck Level Reps/Duration 10x shoulder ER Body Position Standing Water Level Neck Level Reps/Duration 10x hor ab/ad, flex/ext, Body Position Standing Water Level Neck Level Reps/Duration 10x Comments clary and unil Upper Extremity Stretches corner stretch Reps/Duration 2x pec stretch; hands behind back Reps/Duration 2x levator scap stretch Reps/Duration 2x upper trap stretch Reps/Duration 2x [place] Activities [place] Activities Bicycle Bicycle Backwards Cross Country Running Other Activities deep water hang 1' x 2 bicycle holding barbells at sides Equipment flotation belt (L), hydrofit cuffs on UE's Duration 20 Comments verbal and manual cues for neutral postural alignment Swim Strokes Backstroke Laps/Duration 15m x 2 Elementary Backstroke Laps/Duration 15m x 2 PT-OP-T Assessment and Plan Start: 02/01/18 07:02 Freq: Status: Active Protocol: Document 03/12/18 11:23 SA (Rec: 03/12/18 11:33 SA [email or web address]) Physical Therapy Assessment Assessment Summary Assessment Pt tolerated exercise/ stretching well today, to progress at home with Wall postural stretch and continue with chin tucks and UE stretching. handout provided. Physical Therapy Plan Next Visit Focus/Plan Next Note Type Treatment Note Next Visit Plan Continue to progress postural awareness/correction, stretching and cervical ROM program.
--- NOTE | 2018-03-18 12:49 | PT.OTN ---
Current Diagnoses Lumbago with sciatica, unspecified side (03/18/18) Physical Therapy Treatment Note PT-OP-A Visit Information Start: 02/01/18 07:02 Freq: Status: Active Protocol: Document 03/18/18 12:00 DCW (Rec: 03/18/18 12:49 DCW [id number]) Out-Patient Physical Therapy Visit Information Visit Information Visit Type Treatment Note Visit Start Time 12:00 Visit Stop Time 12:45 Total Visit Minutes 45 Visit Number 6 Number of RACK WASHER Visits 0 Evaluation Information Evaluation Date 02/01/18 PT-OP-B Current Condition Start: 02/01/18 07:02 Freq: Status: Active Protocol: Document 02/01/18 09:45 AMB (Rec: 02/06/18 10:27 AMB [email or web address]) Current Condition History of Current Condition Onset Date 2 years ago Current Complaints neck and back pain with numbness History of Current Condition Lei attends physical therapy with neck pain and low back pain. 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 He reports numbness in his left buttocks that worsens with coughing. He reports history of left arm numbness constant in nature that has improved with recent steroid injection. Prior Treatments and [place] pt reports that traction made him nauseous, worked mostly on strengthening which he did not feel improved his symptoms. He has had 2 steroid injection in his cervical spine which has helped both his pain and the numbness that was going down the left arm. 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 02/16/17 disc bulges at L1-2, L2-3, and L3-4, close proximity to the L2 nerve root, but otherwise no evidence of nerve root compression. Treatment Goals Patient/Caregiver Goals Reduce pain/ numbness Prior Functional Status Baseline Function- ADL's Independent Baseline Function- Mobility Independent Current Functional Impairments (Reported) Functional Limitations- Work/School Unable to work full duty due to neck/back pain and numbness PT-OP-C Subjective Start: 02/01/18 07:02 Freq: Status: Active Protocol: Document 03/18/18 12:00 DCW (Rec: 03/18/18 12:49 DCW [id number]) OP-PT Subjective Patient Comments Patient Comments Pt reports that he is worse today after mopping on Sunday, with a lot of pain and numbness radiating down his legs PT-OP-F Manual Assessment Start: 02/01/18 07:02 Freq: Status: Active Protocol: Document 02/01/18 09:45 AMB (Rec: 02/06/18 13:14 AMB [email or web address]) Manual Assessments Soft Tissue Assessment Soft Tissue Mobility Assessment Tightness in levator scap and UT bilaterally, worse at the left, Joint Mobility Assessment Joint Mobility Assessment Tenderness with PAs but still springy PT-OP-J Posture/Palpation/Skin Start: 02/01/18 07:02 Freq: Status: Active Protocol: Document 02/01/18 09:45 AMB (Rec: 02/06/18 13:14 AMB [email or web address]) Posture Evaluation Comments Posture Comments flat lumbar spine with mild forward head PT-OP-K Range of Motion Start: 02/01/18 07:02 Freq: Status: Active Protocol: Document 02/01/18 09:45 AMB (Rec: 02/06/18 13:12 AMB [email or web address]) Cervical Spine Range of Motion Cervical Spine Active Degrees Testing Position Sitting Flexion 30 Extension 35 Rotation Left 50 Rotation Right 30 Lateral Flexion Left 20 Lateral Flexion Right 20 ROM Limitations Pain Lumbar Spine Range of Motion Lumbar Spine Active Degrees Testing Position Standing Flexion 10 Extension 10 Lateral Flexion Left 20 Lateral Flexion Right 20 ROM Limitations Pain Shoulder Goniometric Range of Motion Shoulder ROM Limitations Comments Tight into internal rotation and abduction on the left. PT-OP-L Special Tests Start: 02/01/18 07:02 Freq: Status: Active Protocol: Document 02/01/18 09:45 AMB (Rec: 02/06/18 13:12 AMB [email or web address]) Special Tests Lumbar Spine Special Tests Straight Leg Raise Test Results positive Comments for pain bilat at 50 degrees PT-OP-M Strength Start: 02/01/18 07:02 Freq: Status: Active Protocol: Document 02/01/18 09:45 AMB (Rec: 02/06/18 13:12 AMB [email or web address]) Hand Feed Mill Supervisor/Pinch Strength Hand Dominance Hand Dominance Right Hand Strength Right Feed Mill Supervisor (lbs) 60 Left Feed Mill Supervisor (lbs) 33 Hip Strength Hip Manual Muscle Testing Right Flexion (L2) 4 Good Extension (S1) 4 Good Abduction 4 Good Left Flexion (L2) 4 Good Extension (S1) 4- Good- Abduction 4 Good PT-OP-Q Treatments Start: 02/01/18 07:02 Freq: Status: Active Protocol: Document 03/18/18 12:00 DCW (Rec: 03/18/18 12:49 DCW [id number]) Therapeutic Exercises Supine Exercises 5 Supine Exercise Name PPT /c air bike Side bilateral 4 Supine Exercise Name piriformis stretch Reps/Minutes 30 x 3 Comments figure 4 3 Supine Exercise Name hamstring stretch with strap Side bilateral Manual Therapy Treatment Soft Tissue Mobilization Psoas Body Location Psoas STM Mobilization Type Strumming Sustained Pressure Body Position Hooklying Piriformis Body Location Piriformis STM Mobilization Type Strumming Sustained Pressure Trigger Point Release Body Position Prone 2 Body Location suboccipital release Intensity/Depth Moderate Body Position Supine Manual Traction Lumbar Details Short-axis /c strap Manual Techniques 2 Type Slump sciatic nerve glide Body Position seated PT-OP-R Modalities Start: 02/01/18 07:02 Freq: Status: Active Protocol: Document 03/12/18 11:23 SA (Rec: 03/12/18 11:33 SA [email or web address]) Hot Pack/Cold Pack Treatment Hot pack/Cold pack Location Low back/CP Patient Position Supine Treatment Duration (minutes) 10 Comments C-spine/Hot pack PT-OP-S Aquatic Treatment Start: 03/01/18 15:03 Freq: Status: Active Protocol: Document 03/08/18 11:00 SAK (Rec: 03/08/18 14:40 SAK [id number]) Aquatics Treatment Pool Entry/Exit Pool Entry/Exit Method Stairs Assistance Independent Water Walking walk holding noodle behind back Water Level Chest Level Comments for anterior chest stretch, postural alignment and core stab forward/bck/side Comments emphasis on postural alignment and core stab Lower Extremity Stretches hamstring, ITB Body Position Standing Equipment Large Noodle Reps/Duration 2x Upper Extremity Exercises circles Body Position Standing Water Level Neck Level Reps/Duration 10x shoulder ER Body Position Standing Water Level Neck Level Reps/Duration 10x hor ab/ad, flex/ext, Body Position Standing Water Level Neck Level Reps/Duration 10x Comments clary and unil Upper Extremity Stretches corner stretch Reps/Duration 2x pec stretch; hands behind back Reps/Duration 2x levator scap stretch Reps/Duration 2x upper trap stretch Reps/Duration 2x [place] Activities [place] Activities Bicycle Bicycle Backwards Cross Country Running Other Activities deep water hang 1' x 2 bicycle holding barbells at sides Equipment flotation belt (L), hydrofit cuffs on UE's Duration 20 Comments verbal and manual cues for neutral postural alignment Swim Strokes Backstroke Laps/Duration 15m x 2 Elementary Backstroke Laps/Duration 15m x 2 PT-OP-T Assessment and Plan Start: 02/01/18 07:02 Freq: Status: Active Protocol: Document 03/18/18 12:00 DCW (Rec: 03/18/18 12:49 DCW [id number]) Physical Therapy Assessment Goals Three Impairment Activity tolerance Short Term Goal (STG) Lei 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 STG Duration 5 weeks Professor Of Philosophy Goal (LTG) Lei will stand for 30 minutes with pain of 4/10 or less. 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 STG Duration 5 weeks Senior Care Goal (LTG) Lei will perform a squat to lift 20 pounds with good body mechanics without an increase in baseline pain. LTG Duration 10 weeks One Impairment Range of motion Short Term Goal (STG) Lei will increase his cervical range of motion to actively rotation 50 degrees bilaterally. STG Duration 5 weeks Senior Care Goal (LTG) Lei will increase his lumbar flexion range of motion to 40 degrees. LTG Duration 10 weeks Assessment Summary Assessment Pt obviously worse this session after mopping on Sunday, reports constant pain and numbness down both legs. Discussed possibility of needing to return to specialist if pain does not subside in the next few days. Physical Therapy Plan Frequency and Duration Frequency of Treatment 2x/Week Duration of Treatment 10 weeks Plan of Care Start Date 02/01/18 Plan of Care End Date 04/12/17 Therapeutic Interventions Therapeutic Interventions Aquatic Therapy Gait Training Home Exercise Program Joint Mobilizations Manual Therapy Neuromuscular Re-education Self-Care/Home Management Therapeutic Activities Therapeutic Exercises Modalities Cold Pack/Ice Massage Electric Stimulation Hot Packs Traction- Mechanical Ultrasound Next Visit Focus/Plan Next Note Type Treatment Note Next Visit Plan continue to progress postural modifications and stretchings working to decrease radicular symptoms; combination land and aquatic therapy.
--- NOTE | 2018-03-22 15:36 | PT.OTN ---
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 He reports numbness in his left buttocks that worsens with coughing. He reports history of left arm numbness constant in nature that has improved with recent steroid injection. Prior Treatments and [place] pt reports that traction made him nauseous, worked mostly on strengthening which he did not feel improved his symptoms. He has had 2 steroid injection in his cervical spine which has helped both his pain and the numbness that was going down the left arm. 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 02/16/17 disc bulges at L1-2, L2-3, and L3-4, close proximity to the L2 nerve root, but otherwise no evidence of nerve root compression. Treatment Goals Patient/Caregiver Goals Reduce pain/ numbness Prior Functional Status Baseline Function- ADL's Independent Baseline Function- Mobility Independent Current Functional Impairments (Reported) Functional Limitations- Work/School Unable to work full duty due to neck/back pain and numbness PT-OP-C Subjective Start: 02/01/18 07:02 Freq: Status: Active Protocol: Document 03/22/18 11:45 LJ (Rec: 03/22/18 15:36 LJ [email or web address]) OP-PT Subjective Patient Comments Patient Comments Pt reports neck symptoms have subsided since injection. Still having pain in LB and LEs after mopping. States he feels tightness in upper trap area. PT-OP-F Manual Assessment Start: 02/01/18 07:02 Freq: Status: Active Protocol: Document 02/01/18 09:45 AMB (Rec: 02/06/18 13:14 AMB [email or web address]) Manual Assessments Soft Tissue Assessment Soft Tissue Mobility Assessment Tightness in levator scap and UT bilaterally, worse at the left, Joint Mobility Assessment Joint Mobility Assessment Tenderness with PAs but still springy PT-OP-J Posture/Palpation/Skin Start: 02/01/18 07:02 Freq: Status: Active Protocol: Document 02/01/18 09:45 AMB (Rec: 02/06/18 13:14 AMB [email or web address]) Posture Evaluation Comments Posture Comments flat lumbar spine with mild forward head PT-OP-K Range of Motion Start: 02/01/18 07:02 Freq: Status: Active Protocol: Document 02/01/18 09:45 AMB (Rec: 02/06/18 13:12 AMB [email or web address]) Cervical Spine Range of Motion Cervical Spine Active Degrees Testing Position Sitting Flexion 30 Extension 35 Rotation Left 50 Rotation Right 30 Lateral Flexion Left 20 Lateral Flexion Right 20 ROM Limitations Pain Lumbar Spine Range of Motion Lumbar Spine Active Degrees Testing Position Standing Flexion 10 Extension 10 Lateral Flexion Left 20 Lateral Flexion Right 20 ROM Limitations Pain Shoulder Goniometric Range of Motion Shoulder ROM Limitations Comments Tight into internal rotation and abduction on the left. PT-OP-L Special Tests Start: 02/01/18 07:02 Freq: Status: Active Protocol: Document 02/01/18 09:45 AMB (Rec: 02/06/18 13:12 AMB [email or web address]) Special Tests Lumbar Spine Special Tests Straight Leg Raise Test Results positive Comments for pain bilat at 50 degrees PT-OP-M Strength Start: 02/01/18 07:02 Freq: Status: Active Protocol: Document 02/01/18 09:45 AMB (Rec: 02/06/18 13:12 AMB [email or web address]) Hand Copy Machine Operator/Pinch Strength Hand Dominance Hand Dominance Right Hand Strength Right Copy Machine Operator (lbs) 60 Left Copy Machine Operator (lbs) 33 Hip Strength Hip Manual Muscle Testing Right Flexion (L2) 4 Good Extension (S1) 4 Good Abduction 4 Good Left Flexion (L2) 4 Good Extension (S1) 4- Good- Abduction 4 Good PT-OP-Q Treatments Start: 02/01/18 07:02 Freq: Status: Active Protocol: Document 03/18/18 12:00 DCW (Rec: 03/18/18 12:49 DCW [id number]) Therapeutic Exercises Supine Exercises 5 Supine Exercise Name PPT /c air bike Side bilateral 4 Supine Exercise Name piriformis stretch Reps/Minutes 30 x 3 Comments figure 4 3 Supine Exercise Name hamstring stretch with strap Side bilateral Manual Therapy Treatment Soft Tissue Mobilization Psoas Body Location Psoas STM Mobilization Type Strumming Sustained Pressure Body Position Hooklying Piriformis Body Location Piriformis STM Mobilization Type Strumming Sustained Pressure Trigger Point Release Body Position Prone 2 Body Location suboccipital release Intensity/Depth Moderate Body Position Supine Manual Traction Lumbar Details Short-axis /c strap Manual Techniques 2 Type Slump sciatic nerve glide Body Position seated PT-OP-R Modalities Start: 02/01/18 07:02 Freq: Status: Active Protocol: Document 03/12/18 11:23 SA (Rec: 03/12/18 11:33 SA [email or web address]) Hot Pack/Cold Pack Treatment Hot pack/Cold pack Location Low back/CP Patient Position Supine Treatment Duration (minutes) 10 Comments C-spine/Hot pack PT-OP-S Aquatic Treatment Start: 03/01/18 15:03 Freq: Status: Active Protocol: Document 03/22/18 11:45 LJ (Rec: 03/22/18 15:36 LJ [email or web address]) Aquatics Treatment Pool Entry/Exit Pool Entry/Exit Method Stairs Assistance Independent Water Walking for,back,side,soldier Water Level Neck Level Level of Assistance Verbal Cues Comments 30 meters eadh walk holding noodle behind back Water Level Chest Level Comments for anterior chest stretch, postural alignment and core stab Lower Extremity Exercises circles, fl/ex, ab/ad, gentle Body Position Standing Water Level Chest Level Reps/Duration 10 x1 Comments cues for stabilization Lower Extremity Stretches quads Body Position Standing Water Level Chest Level Comments cue for post pelvic tilt hamstring, ITB Body Position Standing Equipment Large Noodle Reps/Duration 2x Upper Extremity Exercises circles Body Position Standing Water Level Neck Level Reps/Duration 10x shoulder ER Body Position Standing Water Level Neck Level Reps/Duration 10x hor ab/ad, flex/ext, Water Level Neck Level Reps/Duration 10x Comments clary and unil, squat position Upper Extremity Stretches pec stretch; hands behind back Reps/Duration 2x levator scap stretch Reps/Duration 2x upper trap stretch Reps/Duration 2x [place] Activities [place] Activities Bicycle Cross Country Hip Abduction/Adduction Other Activities bicycle holding barbells at sides Equipment 2 floatation belts L Duration 20 Comments verbal and manual cues for neutral postural alignment Swim Strokes Backstroke Laps/Duration 15m x 2 PT-OP-T Assessment and Plan Start: 02/01/18 07:02 Freq: Status: Active Protocol: Document 03/22/18 11:45 LJ (Rec: 03/22/18 15:36 LJ [email or web address]) Physical Therapy Assessment Goals Three Impairment Activity tolerance Short Term Goal (STG) Lei 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 STG Duration 5 weeks Prison Goal (LTG) Lei will stand for 30 minutes with pain of 4/10 or less. 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 STG Duration 5 weeks Prison Goal (LTG) Lei will perform a squat to lift 20 pounds with good body mechanics without an increase in baseline pain. LTG Duration 10 weeks One Impairment Range of motion Short Term Goal (STG) Lei will increase his cervical range of motion to actively rotation 50 degrees bilaterally. STG Duration 5 weeks Prison Goal (LTG) Lei will increase his lumbar flexion range of motion to 40 degrees. LTG Duration 10 weeks Assessment Summary Assessment Pt able to tolerate exercises stating he feels much better in deep water doing CC ski. Pt requiring min assist for neutral alignment in deep water. Addition of second belt helpful in attaining neutral spine. Physical Therapy Plan Frequency and Duration Frequency of Treatment 2x/Week Duration of Treatment 10 weeks Plan of Care Start Date 02/01/18 Plan of Care End Date 04/12/17 Therapeutic Interventions Therapeutic Interventions Aquatic Therapy Gait Training Home Exercise Program Joint Mobilizations Manual Therapy Neuromuscular Re-education Self-Care/Home Management Therapeutic Activities Therapeutic Exercises Modalities Cold Pack/Ice Massage Electric Stimulation Hot Packs Traction- Mechanical Ultrasound Next Visit Focus/Plan Next Note Type Treatment Note Next Visit Plan Continue aquatic therapy sessions strengthening abdominals and glutes. Consider Destiny Ragaz for cervical spine sx.
--- NOTE | 2018-03-26 10:26 | PT.OTN ---
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 He reports numbness in his left buttocks that worsens with coughing. He reports history of left arm numbness constant in nature that has improved with recent steroid injection. Prior [place] made him nauseous, worked mostly on strengthening which he did not feel improved his symptoms. He has had 2 steroid injection in his cervical spine which has helped both his pain and the numbness that was going down the left arm. 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 02/16/17 disc bulges at L1-2, L2-3, and L3-4, close proximity to the L2 nerve root, but otherwise no evidence of nerve root compression. Treatment Goals Patient/Caregiver Goals Reduce pain/ numbness Prior Functional Status Baseline Function- ADL's Independent Baseline Function- Mobility Independent Current Functional Impairments (Reported) Functional Limitations- Work/School Unable to work full duty due to neck/back pain and numbness PT-OP-C Subjective Start: 02/01/18 07:02 Freq: Status: Active Protocol: Document 03/26/18 10:00 DCW (Rec: 03/26/18 10:26 DCW [id number]) OP-PT Subjective Patient Comments Patient Comments Pt reports he is feeling better than he was last week. PT-OP-F Manual Assessment Start: 02/01/18 07:02 Freq: Status: Active Protocol: Document 02/01/18 09:45 AMB (Rec: 02/06/18 13:14 AMB [email or web address]) Manual Assessments Soft Tissue Assessment Soft Tissue Mobility Assessment Tightness in levator scap and UT bilaterally, worse at the left, Joint Mobility Assessment Joint Mobility Assessment Tenderness with PAs but still springy PT-OP-J Posture/Palpation/Skin Start: 02/01/18 07:02 Freq: Status: Active Protocol: Document 02/01/18 09:45 AMB (Rec: 02/06/18 13:14 AMB [email or web address]) Posture Evaluation Comments Posture Comments flat lumbar spine with mild forward head PT-OP-K Range of Motion Start: 02/01/18 07:02 Freq: Status: Active Protocol: Document 02/01/18 09:45 AMB (Rec: 02/06/18 13:12 AMB [email or web address]) Cervical Spine Range of Motion Cervical Spine Active Degrees Testing Position Sitting Flexion 30 Extension 35 Rotation Left 50 Rotation Right 30 Lateral Flexion Left 20 Lateral Flexion Right 20 ROM Limitations Pain Lumbar Spine Range of Motion Lumbar Spine Active Degrees Testing Position Standing Flexion 10 Extension 10 Lateral Flexion Left 20 Lateral Flexion Right 20 ROM Limitations Pain Shoulder Goniometric Range of Motion Shoulder ROM Limitations Comments Tight into internal rotation and abduction on the left. PT-OP-L Special Tests Start: 02/01/18 07:02 Freq: Status: Active Protocol: Document 02/01/18 09:45 AMB (Rec: 02/06/18 13:12 AMB [email or web address]) Special Tests Lumbar Spine Special Tests Straight Leg Raise Test Results positive Comments for pain bilat at 50 degrees PT-OP-M Strength Start: 02/01/18 07:02 Freq: Status: Active Protocol: Document 02/01/18 09:45 AMB (Rec: 02/06/18 13:12 AMB [email or web address]) Hand Staff Readiness Officer/Pinch Strength Hand Dominance Hand Dominance Right Hand Strength Right Staff Readiness Officer (lbs) 60 Left Staff Readiness Officer (lbs) 33 Hip Strength Hip Manual Muscle Testing Right Flexion (L2) 4 Good Extension (S1) 4 Good Abduction 4 Good Left Flexion (L2) 4 Good Extension (S1) 4- Good- Abduction 4 Good PT-OP-Q Treatments Start: 02/01/18 07:02 Freq: Status: Active Protocol: Document 03/26/18 10:00 DCW (Rec: 03/26/18 10:26 DCW [id number]) Manual Therapy Treatment Soft Tissue Mobilization Upper Trap Body Location B Upper Trap Mobilization Type Strain/Counterstrain Sustained Pressure Trigger Point Release Intensity/Depth Moderate Body Position Supine Psoas Body Location Psoas STM Mobilization Type Strumming Sustained Pressure Body Position Hooklying Piriformis Body Location Piriformis STM Mobilization Type Strumming Sustained Pressure Trigger Point Release Body Position Prone 3 Body Location Lumbar Paraspinals STM Mobilization Type Strumming Sustained Pressure Body Position Prone 2 Body Location suboccipital release Intensity/Depth Moderate Body Position Supine Manual Techniques 2 Type Slump sciatic nerve glide Body Position seated PT-OP-R Modalities Start: 02/01/18 07:02 Freq: Status: Active Protocol: Document 03/12/18 11:23 SA (Rec: 03/12/18 11:33 SA [email or web address]) Hot Pack/Cold Pack Treatment Hot pack/Cold pack Location Low back/CP Patient Position Supine Treatment Duration (minutes) 10 Comments C-spine/Hot pack PT-OP-S Aquatic Treatment Start: 03/01/18 15:03 Freq: Status: Active Protocol: Document 03/22/18 11:45 LJ (Rec: 03/22/18 15:36 LJ [email or web address]) Aquatics Treatment Pool Entry/Exit Pool Entry/Exit Method Stairs Assistance Independent Water Walking for,back,side,soldier Water Level Neck Level Level of Assistance Verbal Cues Comments 30 meters eadh walk holding noodle behind back Water Level Chest Level Comments for anterior chest stretch, postural alignment and core stab Lower Extremity Exercises circles, fl/ex, ab/ad, gentle Body Position Standing Water Level Chest Level Reps/Duration 10 x1 Comments cues for stabilization Lower Extremity Stretches quads Body Position Standing Water Level Chest Level Comments cue for post pelvic tilt hamstring, ITB Body Position Standing Equipment Large Noodle Reps/Duration 2x Upper Extremity Exercises circles Body Position Standing Water Level Neck Level Reps/Duration 10x shoulder ER Body Position Standing Water Level Neck Level Reps/Duration 10x hor ab/ad, flex/ext, Water Level Neck Level Reps/Duration 10x Comments clary and unil, squat position Upper Extremity Stretches pec stretch; hands behind back Reps/Duration 2x levator scap stretch Reps/Duration 2x upper trap stretch Reps/Duration 2x [place]ceana Activities Oceana Activities Bicycle Cross Country Hip Abduction/Adduction Other Activities bicycle holding barbells at sides Equipment 2 floatation belts L Duration 20 Comments verbal and manual cues for neutral postural alignment Swim Strokes Backstroke Laps/Duration 15m x 2 PT-OP-T Assessment and Plan Start: 02/01/18 07:02 Freq: Status: Active Protocol: Document 03/26/18 10:00 DCW (Rec: 03/26/18 10:26 DCW [id number]) Physical Therapy Assessment Goals Three Impairment Activity tolerance Short Term Goal (STG) Lei 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 STG Duration 5 weeks Long-Term Goal (LTG) Lei will stand for 30 minutes with pain of 4/10 or less. 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 STG Duration 5 weeks Cosmetologist Apprentice Goal (LTG) Lei will perform a squat to lift 20 pounds with good body mechanics without an increase in baseline pain. LTG Duration 10 weeks One Impairment Range of motion Short Term Goal (STG) Lei will increase his cervical range of motion to actively rotation 50 degrees bilaterally. STG Duration 5 weeks Long-Term Goal (LTG) Lei will increase his lumbar flexion range of motion to 40 degrees. LTG Duration 10 weeks Assessment Summary Assessment Pt had increased tenderness today with STM of Suboccipitals and Upper trap. Physical Therapy Plan Frequency and Duration Frequency of Treatment 2x/Week Duration of Treatment 10 weeks Plan of Care Start Date 02/01/18 Plan of Care End Date 04/12/17 Therapeutic Interventions Therapeutic Interventions Aquatic Therapy Gait Training Home Exercise Program Joint Mobilizations Manual Therapy Neuromuscular Re-education Self-Care/Home Management Therapeutic Activities Therapeutic Exercises Modalities Cold Pack/Ice Massage Electric Stimulation Hot Packs Traction- Mechanical Ultrasound Next Visit Focus/Plan Next Note Type Treatment Note Next Visit Plan Continue aquatic therapy sessions strengthening abdominals and glutes. Consider Destiny Santo for cervical spine sx.
--- NOTE | 2018-04-02 13:27 | PT.OTN ---
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 He reports numbness in his left buttocks that worsens with coughing. He reports history of left arm numbness constant in nature that has improved with recent steroid injection. Prior Treatments and [place] reports that traction made him nauseous, worked mostly on strengthening which he did not feel improved his symptoms. He has had 2 steroid injection in his cervical spine which has helped both his pain and the numbness that was going down the left arm. 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 02/16/17 disc bulges at L1-2, L2-3, and L3-4, close proximity to the L2 nerve root, but otherwise no evidence of nerve root compression. Treatment Goals Patient/Caregiver Goals Reduce pain/ numbness Prior Functional Status Baseline Function- ADL's Independent Baseline Function- Mobility Independent Current Functional Impairments (Reported) Functional Limitations- Work/School Unable to work full duty due to neck/back pain and numbness PT-OP-C Subjective Start: 02/01/18 07:02 Freq: Status: Active Protocol: Document 04/02/18 10:30 HH (Rec: 04/02/18 13:26 HH [email or web address]) OP-PT Subjective Patient Comments Patient Comments Pt states his neck pain is feeling better after his shot but his back still feels the same and very tight all the time. Pt states his BP starts after [address] or 20 mins of standing. PT-OP-F Manual Assessment Start: 02/01/18 07:02 Freq: Status: Active Protocol: Document 02/01/18 09:45 AMB (Rec: 02/06/18 13:14 AMB [email or web address]) Manual Assessments Soft Tissue Assessment Soft Tissue Mobility Assessment Tightness in levator scap and UT bilaterally, worse at the left, Joint Mobility Assessment Joint Mobility Assessment Tenderness with PAs but still springy PT-OP-J Posture/Palpation/Skin Start: 02/01/18 07:02 Freq: Status: Active Protocol: Document 02/01/18 09:45 AMB (Rec: 02/06/18 13:14 AMB [email or web address]) Posture Evaluation Comments Posture Comments flat lumbar spine with mild forward head PT-OP-K Range of Motion Start: 02/01/18 07:02 Freq: Status: Active Protocol: Document 02/01/18 09:45 AMB (Rec: 02/06/18 13:12 AMB [email or web address]) Cervical Spine Range of Motion Cervical Spine Active Degrees Testing Position Sitting Flexion 30 Extension 35 Rotation Left 50 Rotation Right 30 Lateral Flexion Left 20 Lateral Flexion Right 20 ROM Limitations Pain Lumbar Spine Range of Motion Lumbar Spine Active Degrees Testing Position Standing Flexion 10 Extension 10 Lateral Flexion Left 20 Lateral Flexion Right 20 ROM Limitations Pain Shoulder Goniometric Range of Motion Shoulder ROM Limitations Comments Tight into internal rotation and abduction on the left. PT-OP-L Special Tests Start: 02/01/18 07:02 Freq: Status: Active Protocol: Document 02/01/18 09:45 AMB (Rec: 02/06/18 13:12 AMB [email or web address]) Special Tests Lumbar Spine Special Tests Straight Leg Raise Test Results positive Comments for pain bilat at 50 degrees PT-OP-M Strength Start: 02/01/18 07:02 Freq: Status: Active Protocol: Document 02/01/18 09:45 AMB (Rec: 02/06/18 13:12 AMB [email or web address]) Hand Cement Mixer Driver/Pinch Strength Hand Dominance Hand Dominance Right Hand Strength Right Cement Mixer Driver (lbs) 60 Left Cement Mixer Driver (lbs) 33 Hip Strength Hip Manual Muscle Testing Right Flexion (L2) 4 Good Extension (S1) 4 Good Abduction 4 Good Left Flexion (L2) 4 Good Extension (S1) 4- Good- Abduction 4 Good PT-OP-Q Treatments Start: 02/01/18 07:02 Freq: Status: Active Protocol: Document 04/02/18 10:30 HH (Rec: 04/02/18 13:26 HH [email or web address]) Therapeutic Exercises Sitting Exercises scap rotation with shoulder IR and ER Comments emphasize on slow movements seated pelvic tilt Comments emphasize on slow movements, with cervical flexion and extension Other Exercises cat camel Comments emphasize on slow movements, with cervical fleixon and extension Manual Therapy Treatment Soft Tissue Mobilization Upper Trap Body Location B Upper Trap Mobilization Type Strain/Counterstrain Sustained Pressure Trigger Point Release Intensity/Depth Moderate Body Position Sitting Comments with cervical lateral flexion 3 Body Location Paraspinals STM Mobilization Type Strumming Sustained Pressure Body Position Prone Comments followed seated trunk flexion after PT-OP-R Modalities Start: 02/01/18 07:02 Freq: Status: Active Protocol: Document 03/12/18 11:23 SA (Rec: 03/12/18 11:33 SA [email or web address]) Hot Pack/Cold Pack Treatment Hot pack/Cold pack Location Low back/CP Patient Position Supine Treatment Duration (minutes) 10 Comments C-spine/Hot pack PT-OP-S Aquatic Treatment Start: 03/01/18 15:03 Freq: Status: Active Protocol: Document 03/22/18 11:45 LJ (Rec: 03/22/18 15:36 LJ [email or web address]) Aquatics Treatment Pool Entry/Exit Pool Entry/Exit Method Stairs Assistance Independent Water Walking for,back,side,soldier Water Level Neck Level Level of Assistance Verbal Cues Comments 30 meters eadh walk holding noodle behind back Water Level Chest Level Comments for anterior chest stretch, postural alignment and core stab Lower Extremity Exercises circles, fl/ex, ab/ad, gentle Body Position Standing Water Level Chest Level Reps/Duration 10 x1 Comments cues for stabilization Lower Extremity Stretches quads Body Position Standing Water Level Chest Level Comments cue for post pelvic tilt hamstring, ITB Body Position Standing Equipment Large Noodle Reps/Duration 2x Upper Extremity Exercises circles Body Position Standing Water Level Neck Level Reps/Duration 10x shoulder ER Body Position Standing Water Level Neck Level Reps/Duration 10x hor ab/ad, flex/ext, Water Level Neck Level Reps/Duration 10x Comments clary and unil, squat position Upper Extremity Stretches pec stretch; hands behind back Reps/Duration 2x levator scap stretch Reps/Duration 2x upper trap stretch Reps/Duration 2x [place] Activities [place] Activities Bicycle Cross Country Hip Abduction/Adduction Other Activities bicycle holding barbells at sides Equipment 2 floatation belts L Duration 20 Comments verbal and manual cues for neutral postural alignment Swim Strokes Backstroke Laps/Duration 15m x 2 PT-OP-T Assessment and Plan Start: 02/01/18 07:02 Freq: Status: Active Protocol: Document 04/02/18 10:30 HH (Rec: 04/02/18 13:26 HH [email or web address]) Physical Therapy Assessment Assessment Summary Assessment Pt demonstrates significant deficits on overall spinal segmental mobility. Pt was unable touch his both knees ( trunk flexion, lateral flexion , or extension) Treatment focus on manual therapy on posterior chain for relaxation and increased activation of abdominal musculature. Educated pt on new HEP with seated pelvic tilt and cat camel. Physical Therapy Plan Next Visit Focus/Plan Next Note Type Treatment Note Next Visit Plan Reassess pt mobility and new HEP Cont segmental mobility training with breathing techniques trunk mobility and stability training
--- NOTE | 2018-04-05 15:12 | PT.OTN ---
Current Diagnoses Lumbago with sciatica, unspecified side (04/05/18) Physical Therapy Treatment Note PT-OP-A Visit Information Start: 02/01/18 07:02 Freq: Status: Active Protocol: Document 04/05/18 11:00 LJ (Rec: 04/05/18 15:12 LJ [email or web address]) Out-Patient Physical Therapy Visit Information Visit Information Visit Type Aquatic Treatment Note Visit Start Time 11:00 Visit Stop Time 11:45 Total Visit Minutes 45 Visit Number 10 Number of CIGARETTE INSPECTOR Visits 1 PT-OP-B Current Condition Start: 02/01/18 07:02 Freq: Status: Active Protocol: Document 02/01/18 09:45 AMB (Rec: 02/06/18 10:27 AMB [email or web address]) Current Condition History of Current Condition Onset Date 2 years ago Current Complaints neck and back pain with numbness History of Current Condition Lei attends physical therapy with neck pain and low back pain. 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 He reports numbness in his left buttocks that worsens with coughing. He reports history of left arm numbness constant in nature that has improved with recent steroid injection. Prior [place] that traction made him nauseous, worked mostly on strengthening which he did not feel improved his symptoms. He has had 2 steroid injection in his cervical spine which has helped both his pain and the numbness that was going down the left arm. 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 02/16/17 disc bulges at L1-2, L2-3, and L3-4, close proximity to the L2 nerve root, but otherwise no evidence of nerve root compression. Treatment Goals Patient/Caregiver Goals Reduce pain/ numbness Prior Functional Status Baseline Function- ADL's Independent Baseline Function- Mobility Independent Current Functional Impairments (Reported) Functional Limitations- Work/School Unable to work full duty due to neck/back pain and numbness PT-OP-C Subjective Start: 02/01/18 07:02 Freq: Status: Active Protocol: Document 04/05/18 11:00 LJ (Rec: 04/05/18 15:12 LJ [email or web address]) OP-PT Subjective Patient Comments Patient Comments Pt reports neck pain has diminished but back still tight and painful. PT-OP-F Manual Assessment Start: 02/01/18 07:02 Freq: Status: Active Protocol: Document 02/01/18 09:45 AMB (Rec: 02/06/18 13:14 AMB [email or web address]) Manual Assessments Soft Tissue Assessment Soft Tissue Mobility Assessment Tightness in levator scap and UT bilaterally, worse at the left, Joint Mobility Assessment Joint Mobility Assessment Tenderness with PAs but still springy PT-OP-J Posture/Palpation/Skin Start: 02/01/18 07:02 Freq: Status: Active Protocol: Document 02/01/18 09:45 AMB (Rec: 02/06/18 13:14 AMB [email or web address]) Posture Evaluation Comments Posture Comments flat lumbar spine with mild forward head PT-OP-K Range of Motion Start: 02/01/18 07:02 Freq: Status: Active Protocol: Document 02/01/18 09:45 AMB (Rec: 02/06/18 13:12 AMB [email or web address]) Cervical Spine Range of Motion Cervical Spine Active Degrees Testing Position Sitting Flexion 30 Extension 35 Rotation Left 50 Rotation Right 30 Lateral Flexion Left 20 Lateral Flexion Right 20 ROM Limitations Pain Lumbar Spine Range of Motion Lumbar Spine Active Degrees Testing Position Standing Flexion 10 Extension 10 Lateral Flexion Left 20 Lateral Flexion Right 20 ROM Limitations Pain Shoulder Goniometric Range of Motion Shoulder ROM Limitations Comments Tight into internal rotation and abduction on the left. PT-OP-L Special Tests Start: 02/01/18 07:02 Freq: Status: Active Protocol: Document 02/01/18 09:45 AMB (Rec: 02/06/18 13:12 AMB [email or web address]) Special Tests Lumbar Spine Special Tests Straight Leg Raise Test Results positive Comments for pain bilat at 50 degrees PT-OP-M Strength Start: 02/01/18 07:02 Freq: Status: Active Protocol: Document 02/01/18 09:45 AMB (Rec: 02/06/18 13:12 AMB [email or web address]) Hand Welfare Director/Pinch Strength Hand Dominance Hand Dominance Right Hand Strength Right Welfare Director (lbs) 60 Left Welfare Director (lbs) 33 Hip Strength Hip Manual Muscle Testing Right Flexion (L2) 4 Good Extension (S1) 4 Good Abduction 4 Good Left Flexion (L2) 4 Good Extension (S1) 4- Good- Abduction 4 Good PT-OP-Q Treatments Start: 02/01/18 07:02 Freq: Status: Active Protocol: Document 04/02/18 10:30 HH (Rec: 04/02/18 13:26 HH [email or web address]) Therapeutic Exercises Sitting Exercises scap rotation with shoulder IR and ER Comments emphasize on slow movements seated pelvic tilt Comments emphasize on slow movements, with cervical flexion and extension Other Exercises cat camel Comments emphasize on slow movements, with cervical fleixon and extension Manual Therapy Treatment Soft Tissue Mobilization Upper Trap Body Location B Upper Trap Mobilization Type Strain/Counterstrain Sustained Pressure Trigger Point Release Intensity/Depth Moderate Body Position Sitting Comments with cervical lateral flexion 3 Body Location Paraspinals STM Mobilization Type Strumming Sustained Pressure Body Position Prone Comments followed seated trunk flexion after PT-OP-R Modalities Start: 02/01/18 07:02 Freq: Status: Active Protocol: Document 03/12/18 11:23 SA (Rec: 03/12/18 11:33 SA [email or web address]) Hot Pack/Cold Pack Treatment Hot pack/Cold pack Location Low back/CP Patient Position Supine Treatment Duration (minutes) 10 Comments C-spine/Hot pack PT-OP-S Aquatic Treatment Start: 03/01/18 15:03 Freq: Status: Active Protocol: Document 04/05/18 11:00 LJ (Rec: 04/05/18 15:12 LJ [email or web address]) Aquatics Treatment Pool Entry/Exit Pool Entry/Exit Method Stairs Assistance Independent Water Walking for,back,side,soldier Water Level Neck Level Level of Assistance Verbal Cues Comments 30 meters eadh walk holding noodle behind back Water Level Chest Level Comments for anterior chest stretch, postural alignment and core stab Lower Extremity Exercises hip add w/red band Body Position Standing monster walk w/red band Body Position Standing Water Level Chest Level Reps/Duration 10 bilat direction circles, fl/ex, ab/ad, gentle Body Position Standing Water Level Neck Level Reps/Duration 10 bilat, red band Comments cueing for posture Lower Extremity Stretches Gastroc, soleus Details at wall Reps/Duration 40 x2 sec hold bilat quads Body Position Standing Water Level Chest Level Comments cue for post pelvic tilt hamstring, ITB Body Position Standing Equipment Large Noodle Reps/Duration 2x Upper Extremity Exercises lateral and flex ext med BB Body Position Standing Water Level Neck Level Reps/Duration 10 slow Comments cueing for posture circles Body Position Standing Water Level Neck Level Reps/Duration 10x shoulder ER Body Position Standing Water Level Neck Level Reps/Duration 10x Comments red band Spinal Exercises sorner SLR Water Level [place] Reps/Duration 10x static standing w/perturbations Body Position Standing Water Level Chest Level Reps/Duration 4 min Comments 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 STG Duration 5 weeks Hardware Engineering Manager Goal (LTG) Lei will stand for 30 minutes with pain of 4/10 or less. LTG Duration 10 weeks Two Impairment Strength Short Term Goal (STG) Lei will increase his check pilot strength to at least 50 pounds bilaterally. STG Duration 5 weeks Assisted Goal (LTG) Lei will perform a squat to lift 20 pounds with good body mechanics without an increase in baseline pain. LTG Duration 10 weeks One Impairment Range of motion Short Term Goal (STG) Lei will increase his cervical range of motion to actively rotation 50 degrees bilaterally. STG Duration 5 weeks Assisted Goal (LTG) Lei will increase his lumbar flexion range of motion to 40 degrees. LTG Duration 10 weeks Assessment Summary Assessment Pt with decreased spinal mobility and HS-gastroc tightness. Educated pt on proper muscule activation during standing activities and sequencing in standing <> squat. Pt demonstrates understanding. Responded to band exercises with improved functional position and reduced pain. Pt reports improvement in pain and tightness with trunk muscle activation during standing and muscle recruitmant prior to functional movements and exercises. With proper muscle activation pt able to improve stability Physical Therapy Plan Frequency and Duration Frequency of Treatment 2x/Week Duration of Treatment 10 weeks Plan of Care Start Date 02/01/18 Plan of Care End Date 04/12/17 Therapeutic Interventions Therapeutic Interventions Aquatic Therapy Gait Training Home Exercise Program Joint Mobilizations Manual Therapy Neuromuscular Re-education Self-Care/Home Management Therapeutic Activities Therapeutic Exercises Modalities Cold Pack/Ice Massage Electric Stimulation Hot Packs Traction- Mechanical Ultrasound Next Visit Focus/Plan Next Note Type Treatment Note Next Visit Plan Reassess pt mobility and new HEP Cont segmental mobility training with breathing techniques trunk mobility and stability training in the aquatic environment. Reassess pt in walking exercises providing manual resistance. Incorporate medicine ball with squats for functional movement.
--- NOTE | 2018-04-09 13:02 | PT.OTN ---
Current Diagnoses Lumbago with sciatica, unspecified side (04/09/18) Physical Therapy Treatment Note PT-OP-A Visit Information Start: 02/01/18 07:02 Freq: Status: Active Protocol: Document 04/09/18 09:55 HH (Rec: 04/09/18 13:02 HH [email or web address]) Out-Patient Physical Therapy Visit Information Visit Information Visit Type Treatment Note Visit Start Time 09:55 Visit Stop Time 10:40 Total Visit Minutes 45 Visit Number 11 Number of MARINE PAINTER Visits 0 PT-OP-B Current Condition Start: 02/01/18 07:02 Freq: Status: Active Protocol: Document 02/01/18 09:45 AMB (Rec: 02/06/18 10:27 AMB [email or web address]) Current Condition History of Current Condition Onset Date 2 years ago Current Complaints neck and back pain with numbness History of Current Condition Lei attends physical therapy with neck pain and low back pain. 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 He reports numbness in his left buttocks that worsens with coughing. He reports history of left arm numbness constant in nature that has improved with recent steroid injection. Prior Treatments and [place] pt reports that traction made him nauseous, worked mostly on strengthening which he did not feel improved his symptoms. He has had 2 steroid injection in his cervical spine which has helped both his pain and the numbness that was going down the left arm. 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 02/16/17 disc bulges at L1-2, L2-3, and L3-4, close proximity to the L2 nerve root, but otherwise no evidence of nerve root compression. Treatment Goals Patient/Caregiver Goals Reduce pain/ numbness Prior Functional Status Baseline Function- ADL's Independent Baseline Function- Mobility Independent Current Functional Impairments (Reported) Functional Limitations- Work/School Unable to work full duty due to neck/back pain and numbness PT-OP-C Subjective Start: 02/01/18 07:02 Freq: Status: Active Protocol: Document 04/09/18 09:55 HH (Rec: 04/09/18 13:02 HH [email or web address]) OP-PT Subjective Patient Comments Patient Comments Denies neck pain but dull pain at lower back. Pt compliant to HEP with pelvic tilt. Pt states his back felt really good the day he had PT usually but it came back after. He also states lumbar flexion tends to improve his symptoms. PT-OP-F Manual Assessment Start: 02/01/18 07:02 Freq: Status: Active Protocol: Document 02/01/18 09:45 AMB (Rec: 02/06/18 13:14 AMB [email or web address]) Manual Assessments Soft Tissue Assessment Soft Tissue Mobility Assessment Tightness in levator scap and UT bilaterally, worse at the left, Joint Mobility Assessment Joint Mobility Assessment Tenderness with PAs but still springy PT-OP-J Posture/Palpation/Skin Start: 02/01/18 07:02 Freq: Status: Active Protocol: Document 02/01/18 09:45 AMB (Rec: 02/06/18 13:14 AMB [email or web address]) Posture Evaluation Comments Posture Comments flat lumbar spine with mild forward head PT-OP-K Range of Motion Start: 02/01/18 07:02 Freq: Status: Active Protocol: Document 02/01/18 09:45 AMB (Rec: 02/06/18 13:12 AMB [email or web address]) Cervical Spine Range of Motion Cervical Spine Active Degrees Testing Position Sitting Flexion 30 Extension 35 Rotation Left 50 Rotation Right 30 Lateral Flexion Left 20 Lateral Flexion Right 20 ROM Limitations Pain Lumbar Spine Range of Motion Lumbar Spine Active Degrees Testing Position Standing Flexion 10 Extension 10 Lateral Flexion Left 20 Lateral Flexion Right 20 ROM Limitations Pain Shoulder Goniometric Range of Motion Shoulder ROM Limitations Comments Tight into internal rotation and abduction on the left. PT-OP-L Special Tests Start: 02/01/18 07:02 Freq: Status: Active Protocol: Document 02/01/18 09:45 AMB (Rec: 02/06/18 13:12 AMB [email or web address]) Special Tests Lumbar Spine Special Tests Straight Leg Raise Test Results positive Comments for pain bilat at 50 degrees PT-OP-M Strength Start: 02/01/18 07:02 Freq: Status: Active Protocol: Document 02/01/18 09:45 AMB (Rec: 02/06/18 13:12 AMB [email or web address]) Hand Crm Consultant/Pinch Strength Hand Dominance Hand Dominance Right Hand Strength Right Crm Consultant (lbs) 60 Left Crm Consultant (lbs) 33 Hip Strength Hip Manual Muscle Testing Right Flexion (L2) 4 Good Extension (S1) 4 Good Abduction 4 Good Left Flexion (L2) 4 Good Extension (S1) 4- Good- Abduction 4 Good PT-OP-Q Treatments Start: 02/01/18 07:02 Freq: Status: Active Protocol: Document 04/09/18 09:55 HH (Rec: 04/09/18 13:02 HH [email or web address]) Therapeutic Exercises Sitting Exercises seated pelvic tilt Comments emphasize on slow movements, with cervical flexion and extension Standing Exercises standing lumbar flexion with 15lbs DB Equipment Used 15lbs DB Reps/Minutes 10 x 3 Comments slow trunk flexion Other Exercises child pose + L/S ext Comments full lumbar flexion and extension cat camel Comments emphasize on slow movements, with cervical fleixon and extension Manual Therapy Treatment Soft Tissue Mobilization QL Body Location QL Mobilization Type Strumming Sustained Pressure Intensity/Depth Deep Body Position Prone Comments B QL Upper Trap Body Location B Upper Trap Mobilization Type Strain/Counterstrain Sustained Pressure Trigger Point Release Intensity/Depth Moderate Body Position Sitting Comments with cervical lateral flexion 3 Body Location Paraspinals STM Mobilization Type Strumming Sustained Pressure Body Position Prone Comments followed seated trunk flexion after PT-OP-R Modalities Start: 02/01/18 07:02 Freq: Status: Active Protocol: Document 03/12/18 11:23 SA (Rec: 03/12/18 11:33 SA [email or web address]) Hot Pack/Cold Pack Treatment Hot pack/Cold pack Location Low back/CP Patient Position Supine Treatment Duration (minutes) 10 Comments C-spine/Hot pack PT-OP-S Aquatic Treatment Start: 03/01/18 15:03 Freq: Status: Active Protocol: Document 04/05/18 11:00 LJ (Rec: 04/05/18 15:12 LJ [email or web address]) Aquatics Treatment Pool Entry/Exit Pool Entry/Exit Method Stairs Assistance Independent Water Walking for,back,side,soldier Water Level Neck Level Level of Assistance Verbal Cues Comments 30 meters eadh walk holding noodle behind back Water Level Chest Level Comments for anterior chest stretch, postural alignment and core stab Lower Extremity Exercises hip add w/red band Body Position Standing monster walk w/red band Body Position Standing Water Level Chest Level Reps/Duration 10 bilat direction circles, fl/ex, ab/ad, gentle Body Position Standing Water Level Neck Level Reps/Duration 10 bilat, red band Comments cueing for posture Lower Extremity Stretches Gastroc, soleus Details at wall Reps/Duration 40 x2 sec hold bilat quads Body Position Standing Water Level Chest Level Comments cue for post pelvic tilt hamstring, ITB Body Position Standing Equipment Large Noodle Reps/Duration 2x Upper Extremity Exercises lateral and flex ext med BB Body Position Standing Water Level Neck Level Reps/Duration 10 slow Comments cueing for posture circles Body Position Standing Water Level Neck Level Reps/Duration 10x shoulder ER Body Position Standing Water Level Neck Level Reps/Duration 10x Comments red band Spinal Exercises sorner SLR Water Level [place] Reps/Duration 10x static standing w/perturbations Body Position Standing Water Level Chest Level Reps/Duration 4 min Comments 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 Tx focused on segmental mobility and full ROM with child pose, cat camel, prone extension. Introduced standing trunk flexion with 15lbs DB. Pt states My back feels really good after mobility exercises. he was also able to touch his mid lee at the end of session. Physical Therapy Plan Next Visit Focus/Plan Next Note Type Treatment Note Next Visit Plan Reassess pt mobility and new HEP Cont full range of L/S and T/S ROM, segmental mobility training with weight but slow movements. trunk mobility and stability training in the aquatic environment. Reassess pt in walking exercises providing manual resistance. Incorporate medicine ball with squats for functional movement.
--- NOTE | 2018-04-16 13:22 | PT.OPPOC ---
Current Diagnoses Lumbago with sciatica, unspecified side (04/16/18) Provider Visit Care Team Role Provider Type López Terrazas Attending Provider Non-Staff Primary Care Provider Specialty: Medical Address: [address] [place] [address], [address], [id number] Email: Plan Of Care PT-OP-T Assessment and Plan Start: 02/01/18 07:02 Freq: Status: Active Protocol: Document 04/16/18 12:00 (Rec: 04/16/18 13:18 [email or web address]) Physical Therapy Assessment Goals Three Impairment Activity tolerance Short Term Goal (STG) Goal met today. 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 [ End ] STG Duration 6 weeks Tax Investigator Goal (LTG) Goal met today. Saul will stand for 60 minutes with pain of 4 /10 or less. LTG Duration 12 weeks Two Impairment Strength Tax Investigator Goal (LTG) Saul will perform a squat to lift 50 pounds with good body mechanics without an increase in baseline pain. [ End ] LTG Duration 12 weeks One Impairment Range of motion Short Term Goal (STG) Saul will increase his cervical range of motion for 10 degrees grossly bilaterally. STG Duration 6 weeks Correction Goal (LTG) Saul will increase his posterior chain flexibility to touch his ankle during standing flexion LTG Duration 12 weeks Progress Towards Goals Progress Towards Goals Progressing Toward Goals Progress Comments Reeval today. Pt has shown improved posterior chain flexibility (hands touched B knees) and increased acitivity tolerance (driving and standing) since IE. Pt does cont present increased thoracic kyphosis and excessive lumbar lordorsis at resting posture. Pt c/o achy pain at LB at static standing but pain disappeared with posterior pelvic tilt It feels good with post tilt. Today's tx focused on increasing thoracic mobility, Hs mobility and lumbar segmental control. Pt was able to touch mid lee at the end of session. Physical Therapy Plan Frequency and Duration Frequency of Treatment 2x/Week Duration of Treatment 16 weeks Plan of Care Start Date 04/16/18 Plan of Care End Date 08/07/18 Next Visit Focus/Plan Next Note Type Treatment Note Next Visit Plan Reassess pt mobility and new HEP Cont full range of L/S and T/S ROM, segmental mobility training with weight but slow movements. trunk mobility and stability training in the aquatic environment. Isometric lumbar stability training. Plan of Care Dates Plan of Care Start Date 04/16/18 Plan of Care End Date 08/07/18 Please Sign and Return: I have reviewed this Plan of Care and certify that the skilled therapy services above are required to meet the patient?s needs. Physician Signature Date Printed Name and Credentials Clinical Instructor Signature Printed Name and Credentials
--- NOTE | 2018-04-16 13:23 | PT.OTN ---
Current Diagnoses Lumbago with sciatica, unspecified side (04/16/18) Physical Therapy Treatment Note PT-OP-A Visit Information Start: 02/01/18 07:02 Freq: Status: Active Protocol: Document 04/16/18 12:00 HH (Rec: 04/16/18 13:02 HH [email or web address]) Out-Patient Physical Therapy Visit Information Visit Information Visit Type Treatment Note Visit Note Reeval today. New auth for 12 additional visit until 08/07/18 Visit Start Time 12:00 Visit Stop Time 12:55 Total Visit Minutes 55 Visit Number / Number of HOLLOW TILE PARTITION ERECTOR Visits 0 PT-OP-B Current Condition Start: 02/01/18 07:02 Freq: Status: Active Protocol: Document 02/01/18 09:45 AMB (Rec: 02/06/18 10:27 AMB [email or web address]) Current Condition History of Current Condition Onset Date 2 years ago Current Complaints neck and back pain with numbness History of Current Condition Lei attends physical therapy with neck pain and low back pain. 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 He reports numbness in his left buttocks that worsens with coughing. He reports history of left arm numbness constant in nature that has improved with recent steroid injection. Prior [place]ments [place] made him nauseous, worked mostly on strengthening which he did not feel improved his symptoms. He has had 2 steroid injection in his cervical spine which has helped both his pain and the numbness that was going down the left arm. 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 02/16/17 disc bulges at L1-2, L2-3, and L3-4, close proximity to the L2 nerve root, but otherwise no evidence of nerve root compression. Treatment Goals Patient/Caregiver Goals Reduce pain/ numbness Prior Functional Status Baseline Function- ADL's Independent Baseline Function- Mobility Independent Current Functional Impairments (Reported) Functional Limitations- Work/School Unable to work full duty due to neck/back pain and numbness PT-OP-C Subjective Start: 02/01/18 07:02 Freq: Status: Active Protocol: Document 04/16/18 12:00 HH (Rec: 04/16/18 13:18 HH [email or web address]) OP-PT Subjective Patient Comments Patient Comments My back still feels very stiff in the morning. My back starts to ache after [address] or standing more than 20-30 minutes. But i think i move better with HEP. PT-OP-F Manual Assessment Start: 02/01/18 07:02 Freq: Status: Active Protocol: Document 02/01/18 09:45 AMB (Rec: 02/06/18 13:14 AMB [email or web address]) Manual Assessments Soft Tissue Assessment Soft Tissue Mobility Assessment Tightness in levator scap and UT bilaterally, worse at the left, Joint Mobility Assessment Joint Mobility Assessment Tenderness with PAs but still springy PT-OP-J Posture/Palpation/Skin Start: 02/01/18 07:02 Freq: Status: Active Protocol: Document 02/01/18 09:45 AMB (Rec: 02/06/18 13:14 AMB [email or web address]) Posture Evaluation Comments Posture Comments flat lumbar spine with mild forward head PT-OP-K Range of Motion Start: 02/01/18 07:02 Freq: Status: Active Protocol: Document 04/16/18 12:00 HH (Rec: 04/16/18 13:18 HH [email or web address]) Cervical Spine Range of Motion Cervical Spine Active Degrees Flexion 40 Extension 40 Rotation Left 40 Rotation Right 40 Lumbar Spine Range of Motion Lumbar Spine Active Degrees Flexion 40 Extension 20 Rotation Left 30 Rotation Right 30 PT-OP-L Special Tests Start: 02/01/18 07:02 Freq: Status: Active Protocol: Document 02/01/18 09:45 AMB (Rec: 02/06/18 13:12 AMB [email or web address]) Special Tests Lumbar Spine Special Tests Straight Leg Raise Test Results positive Comments for pain bilat at 50 degrees PT-OP-M Strength Start: 02/01/18 07:02 Freq: Status: Active Protocol: Document 04/16/18 12:00 HH (Rec: 04/16/18 13:18 HH [email or web address]) Hand Dental Receptionist/Pinch Strength Hand Strength Right Dental Receptionist (lbs) 60 Left Dental Receptionist (lbs) 45 Hip Strength Hip Manual Muscle Testing Right Flexion (L2) 4+ Good+ Extension (S1) 4+ Good+ Abduction 4+ Good+ Left Flexion (L2) 4+ Good+ Extension (S1) 4+ Good+ Abduction 4+ Good+ PT-OP-Q Treatments Start: 02/01/18 07:02 Freq: Status: Active Protocol: Document 04/16/18 12:00 HH (Rec: 04/16/18 13:20 HH [email or web address]) Therapeutic Exercises Sitting Exercises seated pelvic tilt Comments emphasize on slow movements, with cervical flexion and extension Standing Exercises standing lumbar flexion with 15lbs DB Equipment Used 15lbs DB Reps/Minutes 10 x 3 Comments slow trunk flexion Standing postural wall stretch Comments HS stretch, back neutral, knee bent Other Exercises child pose + L/S ext Comments full lumbar flexion and extension cat camel Comments emphasize on slow movements, with cervical fleixon and extension Manual Therapy Treatment Soft Tissue Mobilization paraspinals Mobilization Type Myofascial Release Sustained Pressure Intensity/Depth Deep Body Position Prone Upper Trap Body Location B Upper Trap Mobilization Type Strain/Counterstrain Sustained Pressure Trigger Point Release Intensity/Depth Moderate Body Position Sitting Comments with cervical lateral flexion PT-OP-R Modalities Start: 02/01/18 07:02 Freq: Status: Active Protocol: Document 03/12/18 11:23 SA (Rec: 03/12/18 11:33 SA [email or web address]) Hot Pack/Cold Pack Treatment Hot pack/Cold pack Location Low back/CP Patient Position Supine Treatment Duration (minutes) 10 Comments C-spine/Hot pack PT-OP-S Aquatic Treatment Start: 03/01/18 15:03 Freq: Status: Active Protocol: Document 04/05/18 11:00 LJ (Rec: 04/05/18 15:12 LJ [email or web address]) Aquatics Treatment Pool Entry/Exit Pool Entry/Exit Method Stairs Assistance Independent Water Walking for,back,side,soldier Water Level Neck Level Level of Assistance Verbal Cues Comments 30 meters eadh walk holding noodle behind back Water Level Chest Level Comments for anterior chest stretch, postural alignment and core stab Lower Extremity Exercises hip add w/red band Body Position Standing monster walk w/red band Body Position Standing Water Level Chest Level Reps/Duration 10 bilat direction circles, fl/ex, ab/ad, gentle Body Position Standing Water Level Neck Level Reps/Duration 10 bilat, red band Comments cueing for posture Lower Extremity Stretches Gastroc, soleus Details at wall Reps/Duration 40 x2 sec hold bilat quads Body Position Standing Water Level Chest Level Comments cue for post pelvic tilt hamstring, ITB Body Position Standing Equipment Large Noodle Reps/Duration 2x Upper Extremity Exercises lateral and flex ext med BB Body Position Standing Water Level Neck Level Reps/Duration 10 slow Comments cueing for posture circles Body Position Standing Water Level Neck Level Reps/Duration 10x shoulder ER Body Position Standing Water Level Neck Level Reps/Duration 10x Comments red band Spinal Exercises sorner SLR Water Level [place] Reps/Duration 10x static standing w/perturbations Body Position Standing Water Level Chest Level Reps/Duration 4 min Comments HOLLOW TILE PARTITION ERECTOR moving water and nudging patient in various directions [place] Activities [place] Activities Bicycle [place] Running Hip Abduction/Adduction Equipment 2 floatation belts L Duration 8 min Comments verbal and manual cues for neutral postural alignment PT-OP-T Assessment and Plan Start: 02/01/18 07:02 Freq: Status: Active Protocol: Document 04/16/18 12:00 (Rec: 04/16/18 13:18 [email or web address]) Physical Therapy Assessment Goals Three Impairment Activity tolerance Short Term Goal (STG) Goal met today. 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 [ End ] STG Duration 6 weeks Penitentiary Goal (LTG) Goal met today. Saul will stand for 60 minutes with pain of 4 /10 or less. LTG Duration 12 weeks Two Impairment Strength Penitentiary Goal (LTG) Saul will perform a squat to lift 50 pounds with good body mechanics without an increase in baseline pain. [ End ] LTG Duration 12 weeks One Impairment Range of motion Short Term Goal (STG) Saul will increase his cervical range of motion for 10 degrees grossly bilaterally. STG Duration 6 weeks Penitentiary Goal (LTG) Saul will increase his posterior chain flexibility to touch his ankle during standing flexion LTG Duration 12 weeks Progress Towards Goals Progress Towards Goals Progressing Toward Goals Progress Comments Reeval today. Pt has shown improved posterior chain flexibility (hands touched B knees) and increased acitivity tolerance (driving and standing) since IE. Pt does cont present increased thoracic kyphosis and excessive lumbar lordorsis at resting posture. Pt c/o achy pain at LB at static standing but pain disappeared with posterior pelvic tilt It feels good with post tilt. Today's tx focused on increasing thoracic mobility, Hs mobility and lumbar segmental control. Pt was able to touch mid lee at the end of session. Physical Therapy Plan Frequency and Duration Frequency of Treatment 2x/Week Duration of Treatment 16 weeks Plan of Care Start Date 04/16/18 Plan of Care End Date 08/07/18 Next Visit Focus/Plan Next Note Type Treatment Note Next Visit Plan Reassess pt mobility and new HEP Cont full range of L/S and T/S ROM, segmental mobility training with weight but slow movements. trunk mobility and stability training in the aquatic environment. Isometric lumbar stability training.
--- NOTE | 2018-04-19 13:22 | PT.OTN ---
Current Diagnoses Lumbago with sciatica, unspecified side (04/16/18) Physical Therapy Treatment Note PT-OP-A Visit Information Start: 02/01/18 07:02 Freq: Status: Active Protocol: Document 04/19/18 13:13 SAK (Rec: 04/19/18 13:21 SAK [id number]) Out-Patient Physical Therapy Visit Information Visit Information Visit Type Aquatic Treatment Note Visit Start Time 11:00 Visit Stop Time 11:45 Total Visit Minutes 45 Visit Number 04/02 PT-OP-B Current Condition Start: 02/01/18 07:02 Freq: Status: Active Protocol: Document 02/01/18 09:45 AMB (Rec: 02/06/18 10:27 AMB [email or web address]) Current Condition History of Current Condition Onset Date 2 years ago Current Complaints neck and back pain with numbness History of Current Condition Lei attends physical therapy with neck pain and low back pain. 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 He reports numbness in his left buttocks that worsens with coughing. He reports history of left arm numbness constant in nature that has improved with recent steroid injection. Prior Treatments and [place] pt reports that traction made him nauseous, worked mostly on strengthening which he did not feel improved his symptoms. He has had 2 steroid injection in his cervical spine which has helped both his pain and the numbness that was going down the left arm. 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 02/16/17 disc bulges at L1-2, L2-3, and L3-4, close proximity to the L2 nerve root, but otherwise no evidence of nerve root compression. Treatment Goals Patient/Caregiver Goals Reduce pain/ numbness Prior Functional Status Baseline Function- ADL's Independent Baseline Function- Mobility Independent Current Functional Impairments (Reported) Functional Limitations- Work/School Unable to work full duty due to neck/back pain and numbness PT-OP-C Subjective Start: 02/01/18 07:02 Freq: Status: Active Protocol: Document 04/19/18 13:13 SAK (Rec: 04/19/18 13:21 SAK [id number]) OP-PT Subjective Patient Comments Patient Comments Reports back pain 4/10, feels better after PT. PT-OP-F Manual Assessment Start: 02/01/18 07:02 Freq: Status: Active Protocol: Document 02/01/18 09:45 AMB (Rec: 02/06/18 13:14 AMB [email or web address]) Manual Assessments Soft Tissue Assessment Soft Tissue Mobility Assessment Tightness in levator scap and UT bilaterally, worse at the left, Joint Mobility Assessment Joint Mobility Assessment Tenderness with PAs but still springy PT-OP-J Posture/Palpation/Skin Start: 02/01/18 07:02 Freq: Status: Active Protocol: Document 02/01/18 09:45 AMB (Rec: 02/06/18 13:14 AMB [email or web address]) Posture Evaluation Comments Posture Comments flat lumbar spine with mild forward head PT-OP-K Range of Motion Start: 02/01/18 07:02 Freq: Status: Active Protocol: Document 04/16/18 12:00 HH (Rec: 04/16/18 13:18 HH [email or web address]) Cervical Spine Range of Motion Cervical Spine Active Degrees Flexion 40 Extension 40 Rotation Left 40 Rotation Right 40 Lumbar Spine Range of Motion Lumbar Spine Active Degrees Flexion 40 Extension 20 Rotation Left 30 Rotation Right 30 PT-OP-L Special Tests Start: 02/01/18 07:02 Freq: Status: Active Protocol: Document 02/01/18 09:45 AMB (Rec: 02/06/18 13:12 AMB [email or web address]) Special Tests Lumbar Spine Special Tests Straight Leg Raise Test Results positive Comments for pain bilat at 50 degrees PT-OP-M Strength Start: 02/01/18 07:02 Freq: Status: Active Protocol: Document 04/16/18 12:00 HH (Rec: 04/16/18 13:18 HH [email or web address]) Hand Line Cleaner/Pinch Strength Hand Strength Right Line Cleaner (lbs) 60 Left Line Cleaner (lbs) 45 Hip Strength Hip Manual Muscle Testing Right Flexion (L2) 4+ Good+ Extension (S1) 4+ Good+ Abduction 4+ Good+ Left Flexion (L2) 4+ Good+ Extension (S1) 4+ Good+ Abduction 4+ Good+ PT-OP-Q Treatments Start: 02/01/18 07:02 Freq: Status: Active Protocol: Document 04/16/18 12:00 HH (Rec: 04/16/18 13:20 HH [email or web address]) Therapeutic Exercises Sitting Exercises seated pelvic tilt Comments emphasize on slow movements, with cervical flexion and extension Standing Exercises standing lumbar flexion with 15lbs DB Equipment Used 15lbs DB Reps/Minutes 10 x 3 Comments slow trunk flexion Standing postural wall stretch Comments HS stretch, back neutral, knee bent Other Exercises child pose + L/S ext Comments full lumbar flexion and extension cat camel Comments emphasize on slow movements, with cervical fleixon and extension Manual Therapy Treatment Soft Tissue Mobilization paraspinals Mobilization Type Myofascial Release Sustained Pressure Intensity/Depth Deep Body Position Prone Upper Trap Body Location B Upper Trap Mobilization Type Strain/Counterstrain Sustained Pressure Trigger Point Release Intensity/Depth Moderate Body Position Sitting Comments with cervical lateral flexion PT-OP-R Modalities Start: 02/01/18 07:02 Freq: Status: Active Protocol: Document 03/12/18 11:23 SA (Rec: 03/12/18 11:33 SA [email or web address]) Hot Pack/Cold Pack Treatment Hot pack/Cold pack Location Low back/CP Patient Position Supine Treatment Duration (minutes) 10 Comments C-spine/Hot pack PT-OP-S Aquatic Treatment Start: 03/01/18 15:03 Freq: Status: Active Protocol: Document 04/19/18 13:13 SAK (Rec: 04/19/18 13:21 SAK [id number]) Aquatics Treatment Water Walking for,back,side,soldier Water Level Neck Level Level of Assistance Verbal Cues Comments 30 meters eadh walk holding noodle behind back Water Level Chest Level Comments for anterior chest stretch, postural alignment and core stab Lower Extremity Stretches hamstring, ITB Body Position Standing Equipment Large Noodle Reps/Duration 2x Spinal Exercises sorner SLR Water Level [place] Reps/Duration 10x [place] Activities [place] Activities Bicycle Bicycle Backwards Cross [place] Running Hip Abduction/Adduction Other Activities Deep water DLS including pendulums, dbl LE lift HS and hip flex stretch at wall Equipment flotation belt, 2 UE floats Duration 10 min Comments verbal and manual cues for neutral postural alignment Manual Techniques Bad Ragaz for spinal mobility (lumbar and thoracic), supine with neck float, waist float, LE floats Aquatic Massage supine with neck float, waist float, LE floats: upper traps, rhomboids, levator scap, thoracolumbar paraspinals PT-OP-T Assessment and Plan Start: 02/01/18 07:02 Freq: Status: Active Protocol: Document 04/19/18 13:13 [facility] (Rec: 04/19/18 13:21 [facility] [id number]) Physical Therapy Assessment Goals Three Impairment Activity tolerance Short Term Goal (STG) Goal met today. 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 [ End ] STG Duration 6 weeks Usp Goal (LTG) Goal met today. Saul will stand for 60 minutes with pain of 4 /10 or less. LTG Duration 12 weeks Two Impairment Strength Usp Goal (LTG) Saul will perform a squat to lift 50 pounds with good body mechanics without an increase in baseline pain. [ End ] LTG Duration 12 weeks One Impairment Range of motion Short Term Goal (STG) Saul will increase his cervical range of motion for 10 degrees grossly bilaterally. STG Duration 6 weeks Usp Goal (LTG) Saul will increase his posterior chain flexibility to touch his ankle during standing flexion LTG Duration 12 weeks Progress Towards Goals Progress Towards Goals Progressing Toward Goals Assessment Summary Assessment Patient has decreased lateral trunk mobility, some difficulty relaxing with Bad Ragaz technique. Tolerated progression of aquatic ex well . Physical Therapy Plan Frequency and Duration Frequency of Treatment 2x/Week Duration of Treatment 16 weeks Plan of Care Start Date 04/16/18 Plan of Care End Date 08/07/18 Next Visit Focus/Plan Next Note Type Treatment Note Next Visit Plan Continue PT per POC.
--- NOTE | 2018-04-23 12:52 | PT.OTN ---
"Current Diagnoses Lumbago with sciatica, unspecified side (04/23/18) Physical Therapy Treatment Note PT-OP-A Visit Information Start: 02/01/18 07:02 Freq: Status: Active Protocol: Document 04/23/18 12:00 GGD (Rec: 04/23/18 12:48 GGD [email or web address]) Out-Patient Physical Therapy Visit Information Visit Information Visit Type Treatment Note Visit Start Time 12:00 Visit Stop Time 12:40 Total Visit Minutes 40 Visit Number 3/ Number of INWARD TOLL OPERATOR Visits 1 Evaluation Information Evaluation Date 02/01/18 PT-OP-B Current Condition Start: 02/01/18 07:02 Freq: Status: Active Protocol: Document 02/01/18 09:45 AMB (Rec: 02/06/18 10:27 AMB [email or web address]) Current Condition History of Current Condition Onset Date 2 years ago Current Complaints neck and back pain with numbness History of Current Condition Lei attends physical therapy with neck pain and low back pain. 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 He reports numbness in his left buttocks that worsens with coughing. He reports history of left arm numbness constant in nature that has improved with recent steroid injection. Prior Treatments and [place] pt reports that traction made him nauseous, worked mostly on strengthening which he did not feel improved his symptoms. He has had 2 steroid injection in his cervical spine which has helped both his pain and the numbness that was going down the left arm. 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 02/16/17 disc bulges at L1-2, L2-3, and L3-4, close proximity to the L2 nerve root, but otherwise no evidence of nerve root compression. Treatment Goals Patient/Caregiver Goals Reduce pain/ numbness Prior Functional Status Baseline Function- ADL's Independent Baseline Function- Mobility Independent Current Functional Impairments (Reported) Functional Limitations- Work/School Unable to work full duty due to neck/back pain and numbness PT-OP-C Subjective Start: 02/01/18 07:02 Freq: Status: Active Protocol: Document 04/23/18 12:00 GGD (Rec: 04/23/18 12:48 GGD [email or web address]) OP-PT Subjective Patient Comments Patient Comments Pt states neck is stilling feeling good. Back felt good after last visit. PT-OP-F Manual Assessment Start: 02/01/18 07:02 Freq: Status: Active Protocol: Document 02/01/18 09:45 AMB (Rec: 02/06/18 13:14 AMB [email or web address]) Manual Assessments Soft Tissue Assessment Soft Tissue Mobility Assessment Tightness in levator scap and UT bilaterally, worse at the left, Joint Mobility Assessment Joint Mobility Assessment Tenderness with PAs but still springy PT-OP-J Posture/Palpation/Skin Start: 02/01/18 07:02 Freq: Status: Active Protocol: Document 02/01/18 09:45 AMB (Rec: 02/06/18 13:14 AMB [email or web address]) Posture Evaluation Comments Posture Comments flat lumbar spine with mild forward head PT-OP-K Range of Motion Start: 02/01/18 07:02 Freq: Status: Active Protocol: Document 04/16/18 12:00 HH (Rec: 04/16/18 13:18 HH [email or web address]) Cervical Spine Range of Motion Cervical Spine Active Degrees Flexion 40 Extension 40 Rotation Left 40 Rotation Right 40 Lumbar Spine Range of Motion Lumbar Spine Active Degrees Flexion 40 Extension 20 Rotation Left 30 Rotation Right 30 PT-OP-L Special Tests Start: 02/01/18 07:02 Freq: Status: Active Protocol: Document 02/01/18 09:45 AMB (Rec: 02/06/18 13:12 AMB [email or web address]) Special Tests Lumbar Spine Special Tests Straight Leg Raise Test Results positive Comments for pain bilat at 50 degrees PT-OP-M Strength Start: 02/01/18 07:02 Freq: Status: Active Protocol: Document 04/16/18 12:00 HH (Rec: 04/16/18 13:18 HH [email or web address]) Hand College Coach/Pinch Strength Hand Strength Right College Coach (lbs) 60 Left College Coach (lbs) 45 Hip Strength Hip Manual Muscle Testing Right Flexion (L2) 4+ Good+ Extension (S1) 4+ Good+ Abduction 4+ Good+ Left Flexion (L2) 4+ Good+ Extension (S1) 4+ Good+ Abduction 4+ Good+ PT-OP-Q Treatments Start: 02/01/18 07:02 Freq: Status: Active Protocol: Document 04/23/18 12:48 GGD (Rec: 04/23/18 12:51 GGD [email or web address]) Therapeutic Exercises Sitting Exercises seated pelvic tilt Comments emphasize on slow movements, with cervical flexion and extension Standing Exercises standing lumbar flexion with 15lbs DB Equipment Used 15lbs DB Reps/Minutes 10 x 3 Comments slow trunk flexion Standing postural wall stretch Comments HS stretch, back neutral, knee bent Other Exercises child pose + L/S ext Comments full lumbar flexion and extension cat camel Comments emphasize on slow movements, with cervical fleixon and extension Manual Therapy Treatment Soft Tissue Mobilization paraspinals Mobilization Type Myofascial Release Sustained Pressure Intensity/Depth Deep Body Position Prone Upper Trap Body Location B Upper Trap Mobilization Type Strain/Counterstrain Sustained Pressure Trigger Point Release Intensity/Depth Moderate Body Position Sitting Comments with cervical lateral flexion PT-OP-T Assessment and Plan Start: 02/01/18 07:02 Freq: Status: Active Protocol: Document 04/23/18 12:00 GGD (Rec: 04/23/18 12:48 GGD [email or web address]) Physical Therapy Assessment Assessment Summary Assessment Pt had decrease pain with treatment. He improving with flexibilty. Physical Therapy Plan Frequency and Duration Frequency of Treatment 2x/Week Duration of Treatment 16 weeks Plan of Care Start Date 04/16/18 Plan of Care End Date 08/07/18 Next Visit Focus/Plan Next Note Type Treatment Note Next Visit Plan Continue PT per POC."
--- NOTE | 2018-04-26 15:00 | PT.OTN ---
Current Diagnoses Lumbago with sciatica, unspecified side (04/26/18) Physical Therapy Treatment Note PT-OP-A Visit Information Start: 02/01/18 07:02 Freq: Status: Active Protocol: Document 04/26/18 11:45 LJ (Rec: 04/26/18 15:00 LJ [email or web address]) Out-Patient Physical Therapy Visit Information Visit Information Visit Type Treatment Note Visit Start Time 11:45 Visit Stop Time 12:30 Total Visit Minutes 41 Visit Number 4/ Number of CORONARY CLINICAL SPECIALIST Visits 2 PT-OP-B Current Condition Start: 02/01/18 07:02 Freq: Status: Active Protocol: Document 02/01/18 09:45 AMB (Rec: 02/06/18 10:27 AMB [email or web address]) Current Condition History of Current Condition Onset Date 2 years ago Current Complaints neck and back pain with numbness History of Current Condition Lei attends physical therapy with neck pain and low back pain. 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 He reports numbness in his left buttocks that worsens with coughing. He reports history of left arm numbness constant in nature that has improved with recent steroid injection. Prior Treatments [place] made him nauseous, worked mostly on strengthening which he did not feel improved his symptoms. He has had 2 steroid injection in his cervical spine which has helped both his pain and the numbness that was going down the left arm. 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 02/16/17 disc bulges at L1-2, L2-3, and L3-4, close proximity to the L2 nerve root, but otherwise no evidence of nerve root compression. Treatment Goals Patient/Caregiver Goals Reduce pain/ numbness Prior Functional Status Baseline Function- ADL's Independent Baseline Function- Mobility Independent Current Functional Impairments (Reported) Functional Limitations- Work/School Unable to work full duty due to neck/back pain and numbness PT-OP-C Subjective Start: 02/01/18 07:02 Freq: Status: Active Protocol: Document 04/26/18 11:45 LJ (Rec: 04/26/18 15:00 LJ [email or web address]) OP-PT Subjective Patient Comments Patient Comments Pt reoprts his neck is felling good. Feels tight in upper trap area. He flet looser and more relaxed after previous aquatic treatment PT-OP-F Manual Assessment Start: 02/01/18 07:02 Freq: Status: Active Protocol: Document 02/01/18 09:45 AMB (Rec: 02/06/18 13:14 AMB [email or web address]) Manual Assessments Soft Tissue Assessment Soft Tissue Mobility Assessment Tightness in levator scap and UT bilaterally, worse at the left, Joint Mobility Assessment Joint Mobility Assessment Tenderness with PAs but still springy PT-OP-J Posture/Palpation/Skin Start: 02/01/18 07:02 Freq: Status: Active Protocol: Document 02/01/18 09:45 AMB (Rec: 02/06/18 13:14 AMB [email or web address]) Posture Evaluation Comments Posture Comments flat lumbar spine with mild forward head PT-OP-K Range of Motion Start: 02/01/18 07:02 Freq: Status: Active Protocol: Document 04/16/18 12:00 HH (Rec: 04/16/18 13:18 HH [email or web address]) Cervical Spine Range of Motion Cervical Spine Active Degrees Flexion 40 Extension 40 Rotation Left 40 Rotation Right 40 Lumbar Spine Range of Motion Lumbar Spine Active Degrees Flexion 40 Extension 20 Rotation Left 30 Rotation Right 30 PT-OP-L Special Tests Start: 02/01/18 07:02 Freq: Status: Active Protocol: Document 02/01/18 09:45 AMB (Rec: 02/06/18 13:12 AMB [email or web address]) Special Tests Lumbar Spine Special Tests Straight Leg Raise Test Results positive Comments for pain bilat at 50 degrees PT-OP-M Strength Start: 02/01/18 07:02 Freq: Status: Active Protocol: Document 04/16/18 12:00 HH (Rec: 04/16/18 13:18 HH [email or web address]) Hand Picture Engraver/Pinch Strength Hand Strength Right Picture Engraver (lbs) 60 Left Picture Engraver (lbs) 45 Hip Strength Hip Manual Muscle Testing Right Flexion (L2) 4+ Good+ Extension (S1) 4+ Good+ Abduction 4+ Good+ Left Flexion (L2) 4+ Good+ Extension (S1) 4+ Good+ Abduction 4+ Good+ PT-OP-Q Treatments Start: 02/01/18 07:02 Freq: Status: Active Protocol: Document 04/23/18 12:48 GGD (Rec: 04/23/18 12:51 GGD [email or web address]) Therapeutic Exercises Sitting Exercises seated pelvic tilt Comments emphasize on slow movements, with cervical flexion and extension Standing Exercises standing lumbar flexion with 15lbs DB Equipment Used 15lbs DB Reps/Minutes 10 x 3 Comments slow trunk flexion Standing postural wall stretch Comments HS stretch, back neutral, knee bent Other Exercises child pose + L/S ext Comments full lumbar flexion and extension cat camel Comments emphasize on slow movements, with cervical fleixon and extension Manual Therapy Treatment Soft Tissue Mobilization paraspinals Mobilization Type Myofascial Release Sustained Pressure Intensity/Depth Deep Body Position Prone Upper Trap Body Location B Upper Trap Mobilization Type Strain/Counterstrain Sustained Pressure Trigger Point Release Intensity/Depth Moderate Body Position Sitting Comments with cervical lateral flexion PT-OP-R Modalities Start: 02/01/18 07:02 Freq: Status: Active Protocol: Document 03/12/18 11:23 SA (Rec: 03/12/18 11:33 SA [email or web address]) Hot Pack/Cold Pack Treatment Hot pack/Cold pack Location Low back/CP Patient Position Supine Treatment Duration (minutes) 10 Comments C-spine/Hot pack PT-OP-S Aquatic Treatment Start: 03/01/18 15:03 Freq: Status: Active Protocol: Document 04/26/18 11:45 LJ (Rec: 04/26/18 15:00 LJ [email or web address]) Aquatics Treatment Water Walking forward walking with paddles and weights Water Level Neck Level Level of Assistance Standby Assistance Comments cues for relaxing scap and back muscles for,back,side,soldier Water Level Neck Level Level of Assistance Verbal Cues Comments 30 meters eadh Lower Extremity Stretches DKTC/SKTC Reps/Duration at wall hamstring, ITB Body Position Standing Equipment Large Noodle Reps/Duration 2x Spinal Exercises sorner SLR Water Level [place] Reps/Duration 10x [place] Activities [place] Activities Bicycle Bicycle Backwards [place] Other Activities Deep water DLS including pendulums, dbl LE lift HS and hip flex stretch at wall Equipment floatation belt x2 Duration 12 min Comments verbal cues for neutral postural alignment Manual Techniques Bad Ragaz for spinal mobility (lumbar and thoracic), supine with neck float, waist float, LE floats Aquatic Massage supine with neck float, waist float, LE floats: upper traps, rhomboids, levator scap, thoracolumbar paraspinals PT-OP-T Assessment and Plan Start: 02/01/18 07:02 Freq: Status: Active Protocol: Document 04/26/18 11:45 JOSE (Rec: 04/26/18 15:00 JOSE [email or web address]) Physical Therapy Assessment Goals Three Impairment Activity tolerance Short Term Goal (STG) Goal met today. 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 [ End ] STG Duration 6 weeks Senior Care Goal (LTG) Goal met today. Lei will stand for 60 minutes with pain of 4 /10 or less. LTG Duration 12 weeks Two Impairment Strength Senior Care Goal (LTG) Lei will perform a squat to lift 50 pounds with good body mechanics without an increase in baseline pain. [ End ] LTG Duration 12 weeks One Impairment Range of motion Short Term Goal (STG) Lei will increase his cervical range of motion for 10 degrees grossly bilaterally. STG Duration 6 weeks Trim Mounter Goal (LTG) Lei will increase his posterior chain flexibility to touch his ankle during standing flexion LTG Duration 12 weeks Assessment Summary Assessment Pt had decrease pain with treatment. He improving with flexibilty. Still tight on left side>right. pt had difficulty relaxing to stretch neck laterally. Reported no pain during treatment other than slight pain in low back with deep water extension portion of CCski. Physical Therapy Plan Frequency and Duration Frequency of Treatment 2x/Week Duration of Treatment 16 weeks Plan of Care Start Date 04/16/18 Plan of Care End Date 08/07/18 Therapeutic Interventions Therapeutic Interventions Aquatic Therapy Gait Training Home Exercise Program Joint Mobilizations Manual Therapy Neuromuscular Re-education Self-Care/Home Management Therapeutic Activities Therapeutic Exercises Modalities Cold Pack/Ice Massage Electric Stimulation Hot Packs Traction- Mechanical Ultrasound Next Visit Focus/Plan Next Note Type Treatment Note Next Visit Plan Continue PT per POC.
--- NOTE | 2018-04-30 14:57 | PT.OTN ---
Current Diagnoses Lumbago with sciatica, unspecified side (04/30/18) Physical Therapy Treatment Note PT-OP-A Visit Information Start: 02/01/18 07:02 Freq: Status: Active Protocol: Document 04/30/18 13:20 SAK (Rec: 04/30/18 13:59 SAK [id number]) Out-Patient Physical Therapy Visit Information Visit Information Visit Type Treatment Note Visit Start Time 13:20 Visit Stop Time 14:05 Total Visit Minutes 45 Visit Number 06/30 Number of PARTS COORDINATOR Visits 0 PT-OP-B Current Condition Start: 02/01/18 07:02 Freq: Status: Active Protocol: Document 02/01/18 09:45 AMB (Rec: 02/06/18 10:27 AMB [email or web address]) Current Condition History of Current Condition Onset Date 2 years ago Current Complaints neck and back pain with numbness History of Current Condition Lei attends physical therapy with neck pain and low back pain. 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 He reports numbness in his left buttocks that worsens with coughing. He reports history of left arm numbness constant in nature that has improved with recent steroid injection. Prior Treatments and Tests [place] pt reports that traction made him nauseous, worked mostly on strengthening which he did not feel improved his symptoms. He has had 2 steroid injection in his cervical spine which has helped both his pain and the numbness that was going down the left arm. 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 02/16/17 disc bulges at L1-2, L2-3, and L3-4, close proximity to the L2 nerve root, but otherwise no evidence of nerve root compression. Treatment Goals Patient/Caregiver Goals Reduce pain/ numbness Prior Functional Status Baseline Function- ADL's Independent Baseline Function- Mobility Independent Current Functional Impairments (Reported) Functional Limitations- Work/School Unable to work full duty due to neck/back pain and numbness PT-OP-C Subjective Start: 02/01/18 07:02 Freq: Status: Active Protocol: Document 04/30/18 13:20 SAK (Rec: 04/30/18 13:59 SAK [id number]) OP-PT Subjective Patient Comments Patient Comments States neck better overall though some tightness in upper traps. Reports improved mobility and decreased pain after PT. Increase in LBP after prolonged sitting, occasional numbness lateral left LE, lumbar tightness and achy pain, occasional sharp pain. PT-OP-F Manual Assessment Start: 02/01/18 07:02 Freq: Status: Active Protocol: Document 02/01/18 09:45 AMB (Rec: 02/06/18 13:14 AMB [email or web address]) Manual Assessments Soft Tissue Assessment Soft Tissue Mobility Assessment Tightness in levator scap and UT bilaterally, worse at the left, Joint Mobility Assessment Joint Mobility Assessment Tenderness with PAs but still springy PT-OP-J Posture/Palpation/Skin Start: 02/01/18 07:02 Freq: Status: Active Protocol: Document 02/01/18 09:45 AMB (Rec: 02/06/18 13:14 AMB [email or web address]) Posture Evaluation Comments Posture Comments flat lumbar spine with mild forward head PT-OP-K Range of Motion Start: 02/01/18 07:02 Freq: Status: Active Protocol: Document 04/16/18 12:00 HH (Rec: 04/16/18 13:18 HH [email or web address]) Cervical Spine Range of Motion Cervical Spine Active Degrees Flexion 40 Extension 40 Rotation Left 40 Rotation Right 40 Lumbar Spine Range of Motion Lumbar Spine Active Degrees Flexion 40 Extension 20 Rotation Left 30 Rotation Right 30 PT-OP-L Special Tests Start: 02/01/18 07:02 Freq: Status: Active Protocol: Document 02/01/18 09:45 AMB (Rec: 02/06/18 13:12 AMB [email or web address]) Special Tests Lumbar Spine Special Tests Straight Leg Raise Test Results positive Comments for pain bilat at 50 degrees PT-OP-M Strength Start: 02/01/18 07:02 Freq: Status: Active Protocol: Document 04/16/18 12:00 HH (Rec: 04/16/18 13:18 HH [email or web address]) Hand Hat Braider/Pinch Strength Hand Strength Right Hat Braider (lbs) 60 Left Hat Braider (lbs) 45 Hip Strength Hip Manual Muscle Testing Right Flexion (L2) 4+ Good+ Extension (S1) 4+ Good+ Abduction 4+ Good+ Left Flexion (L2) 4+ Good+ Extension (S1) 4+ Good+ Abduction 4+ Good+ PT-OP-Q Treatments Start: 02/01/18 07:02 Freq: Status: Active Protocol: Document 04/30/18 13:20 SAK (Rec: 04/30/18 13:59 SAK [id number]) Cardio Equipment Upper Body Ergometer (UBE) Duration (Minutes) 4 Therapeutic Exercises Prone Exercises hip ext Reps/Minutes 3x Comments painful with left hip ext Standing Exercises lunge stretch (stair) Reps/Minutes 2x hamstring stretch (stair) Reps/Minutes 2x standing lumbar flexion with 15lbs DB Equipment Used 15lbs DB Reps/Minutes 10 x 3 Comments slow trunk flexion Other Exercises child pose + L/S ext Comments full lumbar flexion and extension cat camel Comments emphasize on slow movements, with cervical flexion and extension Manual Therapy Treatment Soft Tissue Mobilization paraspinals Mobilization Type Myofascial Release Sustained Pressure Intensity/Depth Deep Body Position Prone Upper Trap Body Location B Upper Trap Mobilization Type Strain/Counterstrain Sustained Pressure Trigger Point Release Intensity/Depth Moderate Body Position Sitting Comments with cervical lateral flexion PT-OP-R Modalities Start: 02/01/18 07:02 Freq: Status: Active Protocol: Document 03/12/18 11:23 SA (Rec: 03/12/18 11:33 SA [email or web address]) Hot Pack/Cold Pack Treatment Hot pack/Cold pack Location Low back/CP Patient Position Supine Treatment Duration (minutes) 10 Comments C-spine/Hot pack PT-OP-S Aquatic Treatment Start: 03/01/18 15:03 Freq: Status: Active Protocol: Document 04/26/18 11:45 LJ (Rec: 04/26/18 15:00 LJ [email or web address]) Aquatics Treatment Water Walking forward walking with paddles and weights Water Level Neck Level Level of Assistance Standby Assistance Comments cues for relaxing scap and back muscles for,back,side,soldier Water Level Neck Level Level of Assistance Verbal Cues Comments 30 meters eadh Lower Extremity Stretches DKTC/SKTC Reps/Duration at wall hamstring, ITB Body Position Standing Equipment Large Noodle Reps/Duration 2x Spinal Exercises sorner SLR Water Level [place] Reps/Duration 10x [place] Activities [place] Activities Bicycle Bicycle Backwards [place] Other Activities Deep water DLS including pendulums, dbl LE lift HS and hip flex stretch at wall Equipment floatation belt x2 Duration 12 min Comments verbal cues for neutral postural alignment Manual Techniques Bad Ragaz for spinal mobility (lumbar and thoracic), supine with neck float, waist float, LE floats Aquatic Massage supine with neck float, waist float, LE floats: upper traps, rhomboids, levator scap, thoracolumbar paraspinals PT-OP-T Assessment and Plan Start: 02/01/18 07:02 Freq: Status: Active Protocol: Document 04/30/18 13:20 [facility] (Rec: 04/30/18 14:57 [facility] [id number]) Physical Therapy Assessment Goals Three Impairment Activity tolerance Short Term Goal (STG) Goal met today. 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 [ End ] STG Duration MET Irrigation Equipment Remover Goal (LTG) Goal met today. Saul will stand for 60 minutes with pain of 4 /10 or less. (goal met) New goal of being able to stand with pain /10 or less LTG Duration 12 weeks Two Impairment Strength Irrigation Equipment Remover Goal (LTG) Saul will perform a squat to lift 50 pounds with good body mechanics without an increase in baseline pain 04/29/18; no weight-lifting yet [ End ] LTG Duration 12 weeks One Impairment Range of motion Short Term Goal (STG) Saul will increase his cervical range of motion for 10 degrees grossly bilaterally. STG Duration 6 weeks Snf Goal (LTG) Saul will increase his posterior chain flexibility to touch his ankle during standing flexion LTG Duration 12 weeks Assessment Summary Assessment Saul had reproduction of back pain with left hip extension. Paraspinal musculature well developed, but deeper stabilizing musculature appears weak. Instructed in isometric hip and trunk ext. Physical Therapy Plan Frequency and Duration Frequency of Treatment 2x/Week Duration of Treatment 16 weeks Plan of Care Start Date 04/16/18 Plan of Care End Date 08/07/18 Therapeutic Interventions Therapeutic Interventions Aquatic Therapy Gait Training Home Exercise Program Joint Mobilizations Manual Therapy Neuromuscular Re-education Self-Care/Home Management Therapeutic Activities Therapeutic Exercises Next Visit Focus/Plan Next Note Type Treatment Note Next Visit Plan Emphasis on exercises to facilitate deep spinal stabilizers, initiate lifting instruction with spinal stabilization; add weight as tolerated.
--- NOTE | 2018-05-07 17:47 | PT.OTN ---
Current Diagnoses Lumbago with sciatica, unspecified side (05/07/18) Physical Therapy Treatment Note PT-OP-A Visit Information Start: 02/01/18 07:02 Freq: Status: Active Protocol: Document 05/07/18 12:10 HH (Rec: 05/07/18 16:52 HH [email or web address]) Out-Patient Physical Therapy Visit Information Visit Information Visit Type Treatment Note Visit Start Time 12:10 Visit Stop Time 13:05 Total Visit Minutes 55 Visit Number 07/31 Number of ROPE CLEANER Visits 0 PT-OP-B Current Condition Start: 02/01/18 07:02 Freq: Status: Active Protocol: Document 02/01/18 09:45 AMB (Rec: 02/06/18 10:27 AMB [email or web address]) Current Condition History of Current Condition Onset Date 2 years ago Current Complaints neck and back pain with numbness History of Current Condition Lei attends physical therapy with neck pain and low back pain. 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 He reports numbness in his left buttocks that worsens with coughing. He reports history of left arm numbness constant in nature that has improved with recent steroid injection. Prior Treatments and [place] pt reports that traction made him nauseous, worked mostly on strengthening which he did not feel improved his symptoms. He has had 2 steroid injection in his cervical spine which has helped both his pain and the numbness that was going down the left arm. 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 02/16/17 disc bulges at L1-2, L2-3, and L3-4, close proximity to the L2 nerve root, but otherwise no evidence of nerve root compression. Treatment Goals Patient/Caregiver Goals Reduce pain/ numbness Prior Functional Status Baseline Function- ADL's Independent Baseline Function- Mobility Independent Current Functional Impairments (Reported) Functional Limitations- Work/School Unable to work full duty due to neck/back pain and numbness PT-OP-C Subjective Start: 02/01/18 07:02 Freq: Status: Active Protocol: Document 05/07/18 12:10 HH (Rec: 05/07/18 16:52 HH [email or web address]) OP-PT Subjective Patient Comments Patient Comments Pt states I could stand 20-[address] 30-40 minutes before my back started to get painful. So it's been improving. PT-OP-F Manual Assessment Start: 02/01/18 07:02 Freq: Status: Active Protocol: Document 02/01/18 09:45 AMB (Rec: 02/06/18 13:14 AMB [email or web address]) Manual Assessments Soft Tissue Assessment Soft Tissue Mobility Assessment Tightness in levator scap and UT bilaterally, worse at the left, Joint Mobility Assessment Joint Mobility Assessment Tenderness with PAs but still springy PT-OP-J Posture/Palpation/Skin Start: 02/01/18 07:02 Freq: Status: Active Protocol: Document 02/01/18 09:45 AMB (Rec: 02/06/18 13:14 AMB [email or web address]) Posture Evaluation Comments Posture Comments flat lumbar spine with mild forward head PT-OP-K Range of Motion Start: 02/01/18 07:02 Freq: Status: Active Protocol: Document 04/16/18 12:00 HH (Rec: 04/16/18 13:18 HH [email or web address]) Cervical Spine Range of Motion Cervical Spine Active Degrees Flexion 40 Extension 40 Rotation Left 40 Rotation Right 40 Lumbar Spine Range of Motion Lumbar Spine Active Degrees Flexion 40 Extension 20 Rotation Left 30 Rotation Right 30 PT-OP-L Special Tests Start: 02/01/18 07:02 Freq: Status: Active Protocol: Document 02/01/18 09:45 AMB (Rec: 02/06/18 13:12 AMB [email or web address]) Special Tests Lumbar Spine Special Tests Straight Leg Raise Test Results positive Comments for pain bilat at 50 degrees PT-OP-M Strength Start: 02/01/18 07:02 Freq: Status: Active Protocol: Document 04/16/18 12:00 HH (Rec: 04/16/18 13:18 HH [email or web address]) Hand Manager Mall/Pinch Strength Hand Strength Right Manager Mall (lbs) 60 Left Manager Mall (lbs) 45 Hip Strength Hip Manual Muscle Testing Right Flexion (L2) 4+ Good+ Extension (S1) 4+ Good+ Abduction 4+ Good+ Left Flexion (L2) 4+ Good+ Extension (S1) 4+ Good+ Abduction 4+ Good+ PT-OP-Q Treatments Start: 02/01/18 07:02 Freq: Status: Active Protocol: Document 05/07/18 12:10 HH (Rec: 05/07/18 16:52 HH [email or web address]) Therapeutic Exercises Standing Exercises hip hinge Side bilateral Equipment Used 20lbs Reps/Minutes 10 x2 ankle DF Side right Reps/Minutes 10 x2 Comments lunge on table with ankle DF standing pelvic tilt Side bilateral Reps/Minutes 20 x 2 Comments ant/ post tilt standing lumbar flexion with 15lbs DB Equipment Used 20lbs DB Reps/Minutes 10x3 Comments slow trunk flexion Manual Therapy Treatment Soft Tissue Mobilization R anterior tib Mobilization Type Cross-Friction Strumming Sustained Pressure Intensity/Depth Moderate Body Position Supine paraspinals Mobilization Type Myofascial Release Sustained Pressure Intensity/Depth Deep Body Position Prone PT-OP-R Modalities Start: 02/01/18 07:02 Freq: Status: Active Protocol: Document 03/12/18 11:23 SA (Rec: 03/12/18 11:33 SA [email or web address]) Hot Pack/Cold Pack Treatment Hot pack/Cold pack Location Low back/CP Patient Position Supine Treatment Duration (minutes) 10 Comments C-spine/Hot pack PT-OP-S Aquatic Treatment Start: 03/01/18 15:03 Freq: Status: Active Protocol: Document 04/26/18 11:45 LJ (Rec: 04/26/18 15:00 LJ [email or web address]) Aquatics Treatment Water Walking forward walking with paddles and weights Water Level Neck Level Level of Assistance Standby Assistance Comments cues for relaxing scap and back muscles for,back,side,soldier Water Level Neck Level Level of Assistance Verbal Cues Comments 30 meters eadh Lower Extremity Stretches DKTC/SKTC Reps/Duration at wall hamstring, ITB Body Position Standing Equipment Large Noodle Reps/Duration 2x Spinal Exercises sorner SLR Water Level [place] Reps/Duration 10x [place] Activities [place] Activities Bicycle Bicycle Backwards [place] Other Activities Deep water DLS including pendulums, dbl LE lift HS and hip flex stretch at wall Equipment floatation belt x2 Duration 12 min Comments verbal cues for neutral postural alignment Manual Techniques Bad Ragaz for spinal mobility (lumbar and thoracic), supine with neck float, waist float, LE floats Aquatic Massage supine with neck float, waist float, LE floats: upper traps, rhomboids, levator scap, thoracolumbar paraspinals PT-OP-T Assessment and Plan Start: 02/01/18 07:02 Freq: Status: Active Protocol: Document 05/07/18 12:10 (Rec: 05/07/18 16:52 [email or web address]) Physical Therapy Assessment Assessment Summary Assessment Pt stated there's overall improvement in pain and ROM but slowly. Pt also c/o pain during prolonged standing at work. Pt repots his pain reduced significantly with posterior pelvic tilt while standing today. Pt also appeared to have increased pronation in resting posture and squating activities which possibly leads to his ongoing medial ankle pain. Physical Therapy Plan Next Visit Focus/Plan Next Note Type Treatment Note Next Visit Plan Emphasis on exercises to facilitate deep spinal stabilizers, initiate lifting instruction with spinal stabilization; add weight as tolerated.
--- NOTE | 2018-05-10 11:25 | PT.OTN ---
Current Diagnoses Lumbago with sciatica, unspecified side (05/10/18) Physical Therapy Treatment Note PT-OP-A Visit Information Start: 02/01/18 07:02 Freq: Status: Active Protocol: Document 05/10/18 11:16 SA (Rec: 05/10/18 11:25 SA [email or web address]) Out-Patient Physical Therapy Visit Information Visit Information Visit Type Treatment Note Visit Start Time 08:15 Visit Stop Time 09:03 Total Visit Minutes 48 Visit Number 08/30 Number of UNIVERSITY LIBRARIAN Visits 1 PT-OP-B Current Condition Start: 02/01/18 07:02 Freq: Status: Active Protocol: Document 02/01/18 09:45 AMB (Rec: 02/06/18 10:27 AMB [email or web address]) Current Condition History of Current Condition Onset Date 2 years ago Current Complaints neck and back pain with numbness History of Current Condition Lei attends physical therapy with neck pain and low back pain. 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 He reports numbness in his left buttocks that worsens with coughing. He reports history of left arm numbness constant in nature that has improved with recent steroid injection. Prior [place] made him nauseous, worked mostly on strengthening which he did not feel improved his symptoms. He has had 2 steroid injection in his cervical spine which has helped both his pain and the numbness that was going down the left arm. 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 02/16/17 disc bulges at L1-2, L2-3, and L3-4, close proximity to the L2 nerve root, but otherwise no evidence of nerve root compression. Treatment Goals Patient/Caregiver Goals Reduce pain/ numbness Prior Functional Status Baseline Function- ADL's Independent Baseline Function- Mobility Independent Current Functional Impairments (Reported) Functional Limitations- Work/School Unable to work full duty due to neck/back pain and numbness PT-OP-C Subjective Start: 02/01/18 07:02 Freq: Status: Active Protocol: Document 05/10/18 11:16 SA (Rec: 05/10/18 11:25 SA [email or web address]) OP-PT Subjective Patient Comments Patient Comments Neck feeling pretty good, back feels tight this morning, doing stretches daily at home. PT-OP-F Manual Assessment Start: 02/01/18 07:02 Freq: Status: Active Protocol: Document 02/01/18 09:45 AMB (Rec: 02/06/18 13:14 AMB [email or web address]) Manual Assessments Soft Tissue Assessment Soft Tissue Mobility Assessment Tightness in levator scap and UT bilaterally, worse at the left, Joint Mobility Assessment Joint Mobility Assessment Tenderness with PAs but still springy PT-OP-J Posture/Palpation/Skin Start: 02/01/18 07:02 Freq: Status: Active Protocol: Document 02/01/18 09:45 AMB (Rec: 02/06/18 13:14 AMB [email or web address]) Posture Evaluation Comments Posture Comments flat lumbar spine with mild forward head PT-OP-K Range of Motion Start: 02/01/18 07:02 Freq: Status: Active Protocol: Document 04/16/18 12:00 HH (Rec: 04/16/18 13:18 HH [email or web address]) Cervical Spine Range of Motion Cervical Spine Active Degrees Flexion 40 Extension 40 Rotation Left 40 Rotation Right 40 Lumbar Spine Range of Motion Lumbar Spine Active Degrees Flexion 40 Extension 20 Rotation Left 30 Rotation Right 30 PT-OP-L Special Tests Start: 02/01/18 07:02 Freq: Status: Active Protocol: Document 02/01/18 09:45 AMB (Rec: 02/06/18 13:12 AMB [email or web address]) Special Tests Lumbar Spine Special Tests Straight Leg Raise Test Results positive Comments for pain bilat at 50 degrees PT-OP-M Strength Start: 02/01/18 07:02 Freq: Status: Active Protocol: Document 04/16/18 12:00 HH (Rec: 04/16/18 13:18 HH [email or web address]) Hand Stem Processing Machine Operator/Pinch Strength Hand Strength Right Stem Processing Machine Operator (lbs) 60 Left Stem Processing Machine Operator (lbs) 45 Hip Strength Hip Manual Muscle Testing Right Flexion (L2) 4+ Good+ Extension (S1) 4+ Good+ Abduction 4+ Good+ Left Flexion (L2) 4+ Good+ Extension (S1) 4+ Good+ Abduction 4+ Good+ PT-OP-Q Treatments Start: 02/01/18 07:02 Freq: Status: Active Protocol: Document 05/10/18 11:16 SA (Rec: 05/10/18 11:25 SA [email or web address]) Cardio Equipment Elliptical Duration (Minutes) 5 Resistance 3 Other cues for core activation Therapeutic Exercises Prone Exercises hip ext Reps/Minutes 3 x 30 Comments well tolerated Standing Exercises hip hinge Side bilateral Equipment Used 20lbs Reps/Minutes 10 x2 ankle DF Side right Reps/Minutes 10 x2 Comments lunge on table with ankle DF standing pelvic tilt Side bilateral Reps/Minutes 20 x 2 Comments ant/ post tilt lunge stretch (stair) Reps/Minutes 3x 30 hamstring stretch (stair) Reps/Minutes 3 x 30 standing lumbar flexion with 15lbs DB Equipment Used 20lbs DB Reps/Minutes 10x3 Comments slow trunk flexion Other Exercises child pose + L/S ext Side bilateral Reps/Minutes 30 x 2 Manual Therapy Treatment Soft Tissue Mobilization paraspinals Body Location paraspinals/QL Mobilization Type Myofascial Release Sustained Pressure Intensity/Depth Deep Body Position Prone PT-OP-R Modalities Start: 02/01/18 07:02 Freq: Status: Active Protocol: Document 03/12/18 11:23 SA (Rec: 03/12/18 11:33 SA [email or web address]) Hot Pack/Cold Pack Treatment Hot pack/Cold pack Location Low back/CP Patient Position Supine Treatment Duration (minutes) 10 Comments C-spine/Hot pack PT-OP-S Aquatic Treatment Start: 03/01/18 15:03 Freq: Status: Active Protocol: Document 04/26/18 11:45 LJ (Rec: 04/26/18 15:00 LJ [email or web address]) Aquatics Treatment Water Walking forward walking with paddles and weights Water Level Neck Level Level of Assistance Standby Assistance Comments cues for relaxing scap and back muscles for,back,side,soldier Water Level Neck Level Level of Assistance Verbal Cues Comments 30 meters eadh Lower Extremity Stretches DKTC/SKTC Reps/Duration at wall hamstring, ITB Body Position Standing Equipment Large Noodle Reps/Duration 2x Spinal Exercises sorner SLR Water Level [place] Reps/Duration 10x [place] Activities [place] Activities Bicycle Bicycle Backwards [place] Other Activities Deep water DLS including pendulums, dbl LE lift HS and hip flex stretch at wall Equipment floatation belt x2 Duration 12 min Comments verbal cues for neutral postural alignment Manual Techniques Bad Ragaz for spinal mobility (lumbar and thoracic), supine with neck float, waist float, LE floats Aquatic Massage supine with neck float, waist float, LE floats: upper traps, rhomboids, levator scap, thoracolumbar paraspinals PT-OP-T Assessment and Plan Start: 02/01/18 07:02 Freq: Status: Active Protocol: Document 05/10/18 11:16 SA (Rec: 05/10/18 11:25 SA [email or web address]) Physical Therapy Assessment Assessment Summary Assessment Review of PPT with activity to decrease pain and improve standing tolerance. Pt feeling a little better but cont intermittent low back pain. Physical Therapy Plan Next Visit Focus/Plan Next Note Type Treatment Note Next Visit Plan Emphasis on exercises to facilitate deep spinal stabilizers, initiate lifting instruction with spinal stabilization; add weight as tolerated.
--- NOTE | 2018-05-14 16:15 | PT.OTN ---
Current Diagnoses Lumbago with sciatica, unspecified side (05/14/18) Physical Therapy Treatment Note PT-OP-A Visit Information Start: 02/01/18 07:02 Freq: Status: Active Protocol: Document 05/14/18 12:00 GGD (Rec: 05/14/18 16:15 GGD [email or web address]) Out-Patient Physical Therapy Visit Information Visit Information Visit Type Treatment Note Visit Start Time 12:00 Visit Stop Time 12:45 Total Visit Minutes 45 Visit Number 8/ Number of TOWNSHIP CLERK Visits 2 PT-OP-B Current Condition Start: 02/01/18 07:02 Freq: Status: Active Protocol: Document 02/01/18 09:45 AMB (Rec: 02/06/18 10:27 AMB [email or web address]) Current Condition History of Current Condition Onset Date 2 years ago Current Complaints neck and back pain with numbness History of Current Condition Lei attends physical therapy with neck pain and low back pain. 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 He reports numbness in his left buttocks that worsens with coughing. He reports history of left arm numbness constant in nature that has improved with recent steroid injection. Prior Treatments and Tests [place] pt reports that traction made him nauseous, worked mostly on strengthening which he did not feel improved his symptoms. He has had 2 steroid injection in his cervical spine which has helped both his pain and the numbness that was going down the left arm. 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 02/16/17 disc bulges at L1-2, L2-3, and L3-4, close proximity to the L2 nerve root, but otherwise no evidence of nerve root compression. Treatment Goals Patient/Caregiver Goals Reduce pain/ numbness Prior Functional Status Baseline Function- ADL's Independent Baseline Function- Mobility Independent Current Functional Impairments (Reported) Functional Limitations- Work/School Unable to work full duty due to neck/back pain and numbness PT-OP-C Subjective Start: 02/01/18 07:02 Freq: Status: Active Protocol: Document 05/14/18 12:00 GGD (Rec: 05/14/18 16:15 GGD [email or web address]) OP-PT Subjective Patient Comments Patient Comments Pt states his back is sore in the AM. PT-OP-F Manual Assessment Start: 02/01/18 07:02 Freq: Status: Active Protocol: Document 02/01/18 09:45 AMB (Rec: 02/06/18 13:14 AMB [email or web address]) Manual Assessments Soft Tissue Assessment Soft Tissue Mobility Assessment Tightness in levator scap and UT bilaterally, worse at the left, Joint Mobility Assessment Joint Mobility Assessment Tenderness with PAs but still springy PT-OP-J Posture/Palpation/Skin Start: 02/01/18 07:02 Freq: Status: Active Protocol: Document 02/01/18 09:45 AMB (Rec: 02/06/18 13:14 AMB [email or web address]) Posture Evaluation Comments Posture Comments flat lumbar spine with mild forward head PT-OP-K Range of Motion Start: 02/01/18 07:02 Freq: Status: Active Protocol: Document 04/16/18 12:00 HH (Rec: 04/16/18 13:18 HH [email or web address]) Cervical Spine Range of Motion Cervical Spine Active Degrees Flexion 40 Extension 40 Rotation Left 40 Rotation Right 40 Lumbar Spine Range of Motion Lumbar Spine Active Degrees Flexion 40 Extension 20 Rotation Left 30 Rotation Right 30 PT-OP-L Special Tests Start: 02/01/18 07:02 Freq: Status: Active Protocol: Document 02/01/18 09:45 AMB (Rec: 02/06/18 13:12 AMB [email or web address]) Special Tests Lumbar Spine Special Tests Straight Leg Raise Test Results positive Comments for pain bilat at 50 degrees PT-OP-M Strength Start: 02/01/18 07:02 Freq: Status: Active Protocol: Document 04/16/18 12:00 HH (Rec: 04/16/18 13:18 HH [email or web address]) Hand Nozzle Tender/Pinch Strength Hand Strength Right Nozzle Tender (lbs) 60 Left Nozzle Tender (lbs) 45 Hip Strength Hip Manual Muscle Testing Right Flexion (L2) 4+ Good+ Extension (S1) 4+ Good+ Abduction 4+ Good+ Left Flexion (L2) 4+ Good+ Extension (S1) 4+ Good+ Abduction 4+ Good+ PT-OP-Q Treatments Start: 02/01/18 07:02 Freq: Status: Active Protocol: Document 05/14/18 12:00 GGD (Rec: 05/14/18 16:15 GGD [email or web address]) Cardio Equipment Elliptical Duration (Minutes) 5 Resistance 3 Other cues for core activation Therapeutic Exercises Prone Exercises hip ext Reps/Minutes 3 x 30 Comments well tolerated Standing Exercises hip hinge Side bilateral Equipment Used 20lbs Reps/Minutes 10 x2 ankle DF Side right Reps/Minutes 10 x2 Comments lunge on table with ankle DF standing pelvic tilt Side bilateral Reps/Minutes 20 x 2 Comments ant/ post tilt lunge stretch (stair) Reps/Minutes 3x 30 hamstring stretch (stair) Reps/Minutes 3 x 30 standing lumbar flexion with 15lbs DB Equipment Used 20lbs DB Reps/Minutes 10x3 Comments slow trunk flexion Other Exercises child pose + L/S ext Side bilateral Reps/Minutes 30 x 2 Manual Therapy Treatment Soft Tissue Mobilization paraspinals Body Location paraspinals/QL Mobilization Type Myofascial Release Sustained Pressure Intensity/Depth Deep Body Position Prone Psoas Body Location Psoas STM Mobilization Type Strumming Sustained Pressure Body Position Hooklying PT-OP-R Modalities Start: 02/01/18 07:02 Freq: Status: Active Protocol: Document 03/12/18 11:23 SA (Rec: 03/12/18 11:33 SA [email or web address]) Hot Pack/Cold Pack Treatment Hot pack/Cold pack Location Low back/CP Patient Position Supine Treatment Duration (minutes) 10 Comments C-spine/Hot pack PT-OP-S Aquatic Treatment Start: 03/01/18 15:03 Freq: Status: Active Protocol: Document 04/26/18 11:45 LJ (Rec: 04/26/18 15:00 LJ [email or web address]) Aquatics Treatment Water Walking forward walking with paddles and weights Water Level Neck Level Level of Assistance Standby Assistance Comments cues for relaxing scap and back muscles for,back,side,soldier Water Level Neck Level Level of Assistance Verbal Cues Comments 30 meters eadh Lower Extremity Stretches DKTC/SKTC Reps/Duration at wall hamstring, ITB Body Position Standing Equipment Large Noodle Reps/Duration 2x Spinal Exercises sorner SLR Water Level [place] Reps/Duration 10x [place] Activities [place] Activities Bicycle Bicycle Backwards [place] Other Activities Deep water DLS including pendulums, dbl LE lift HS and hip flex stretch at wall Equipment floatation belt x2 Duration 12 min Comments verbal cues for neutral postural alignment Manual Techniques Bad Ragaz for spinal mobility (lumbar and thoracic), supine with neck float, waist float, LE floats Aquatic Massage supine with neck float, waist float, LE floats: upper traps, rhomboids, levator scap, thoracolumbar paraspinals PT-OP-T Assessment and Plan Start: 02/01/18 07:02 Freq: Status: Active Protocol: Document 05/14/18 12:00 GGD (Rec: 05/14/18 16:15 GGD [email or web address]) Physical Therapy Assessment Goals Three Impairment Activity tolerance Short Term Goal (STG) Goal met today. 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 [ End ] STG Duration MET E Learning Designer Goal (LTG) Goal met today. Saul will stand for 60 minutes with pain of 4 /10 or less. (goal met) New goal of being able to stand with pain /10 or less LTG Duration 12 weeks Two Impairment Strength Senior Living Goal (LTG) Saul will perform a squat to lift 50 pounds with good body mechanics without an increase in baseline pain 04/29/18; no weight-lifting yet [ End ] LTG Duration 12 weeks One Impairment Range of motion Short Term Goal (STG) Saul will increase his cervical range of motion for 10 degrees grossly bilaterally. STG Duration 6 weeks E Learning Designer Goal (LTG) Saul will increase his posterior chain flexibility to touch his ankle during standing flexion LTG Duration 12 weeks Assessment Summary Assessment Pt improving with PPT. He did need cues for core stability with activity. He had decrease pain after manual psoas STM. Physical Therapy Plan Frequency and Duration Frequency of Treatment 2x/Week Duration of Treatment 16 weeks Plan of Care Start Date 04/16/18 Plan of Care End Date 08/07/18 Next Visit Focus/Plan Next Note Type Treatment Note Next Visit Plan Emphasis on exercises to facilitate deep spinal stabilizers, initiate lifting instruction with spinal stabilization; add weight as tolerated.
--- NOTE | 2018-05-21 18:25 | PT.OTN ---
Current Diagnoses Lumbago with sciatica, unspecified side (05/21/18) Physical Therapy Treatment Note PT-OP-A Visit Information Start: 02/01/18 07:02 Freq: Status: Active Protocol: Document 05/21/18 12:00 HH (Rec: 05/21/18 18:24 HH [email or web address]) Out-Patient Physical Therapy Visit Information Visit Information Visit Type Treatment Note Visit Start Time 12:00 Visit Stop Time 12:45 Total Visit Minutes 45 Visit Number 10/31 Number of TAX ADJUSTER Visits 0 PT-OP-B Current Condition Start: 02/01/18 07:02 Freq: Status: Active Protocol: Document 02/01/18 09:45 AMB (Rec: 02/06/18 10:27 AMB [email or web address]) Current Condition History of Current Condition Onset Date 2 years ago Current Complaints neck and back pain with numbness History of Current Condition Lei attends physical therapy with neck pain and low back pain. 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 He reports numbness in his left buttocks that worsens with coughing. He reports history of left arm numbness constant in nature that has improved with recent steroid injection. Prior Treatments and [place] pt reports that traction made him nauseous, worked mostly on strengthening which he did not feel improved his symptoms. He has had 2 steroid injection in his cervical spine which has helped both his pain and the numbness that was going down the left arm. 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 02/16/17 disc bulges at L1-2, L2-3, and L3-4, close proximity to the L2 nerve root, but otherwise no evidence of nerve root compression. Treatment Goals Patient/Caregiver Goals Reduce pain/ numbness Prior Functional Status Baseline Function- ADL's Independent Baseline Function- Mobility Independent Current Functional Impairments (Reported) Functional Limitations- Work/School Unable to work full duty due to neck/back pain and numbness PT-OP-C Subjective Start: 02/01/18 07:02 Freq: Status: Active Protocol: Document 05/21/18 12:00 HH (Rec: 05/21/18 18:24 HH [email or web address]) OP-PT Subjective Patient Comments Patient Comments I have back pain and radiating to my front of R hip the past two days and i do not know why. My L side hasnt bothered me lately at all. PT-OP-F Manual Assessment Start: 02/01/18 07:02 Freq: Status: Active Protocol: Document 02/01/18 09:45 AMB (Rec: 02/06/18 13:14 AMB [email or web address]) Manual Assessments Soft Tissue Assessment Soft Tissue Mobility Assessment Tightness in levator scap and UT bilaterally, worse at the left, Joint Mobility Assessment Joint Mobility Assessment Tenderness with PAs but still springy PT-OP-J Posture/Palpation/Skin Start: 02/01/18 07:02 Freq: Status: Active Protocol: Document 02/01/18 09:45 AMB (Rec: 02/06/18 13:14 AMB [email or web address]) Posture Evaluation Comments Posture Comments flat lumbar spine with mild forward head PT-OP-K Range of Motion Start: 02/01/18 07:02 Freq: Status: Active Protocol: Document 04/16/18 12:00 HH (Rec: 04/16/18 13:18 HH [email or web address]) Cervical Spine Range of Motion Cervical Spine Active Degrees Flexion 40 Extension 40 Rotation Left 40 Rotation Right 40 Lumbar Spine Range of Motion Lumbar Spine Active Degrees Flexion 40 Extension 20 Rotation Left 30 Rotation Right 30 PT-OP-L Special Tests Start: 02/01/18 07:02 Freq: Status: Active Protocol: Document 02/01/18 09:45 AMB (Rec: 02/06/18 13:12 AMB [email or web address]) Special Tests Lumbar Spine Special Tests Straight Leg Raise Test Results positive Comments for pain bilat at 50 degrees PT-OP-M Strength Start: 02/01/18 07:02 Freq: Status: Active Protocol: Document 04/16/18 12:00 HH (Rec: 04/16/18 13:18 HH [email or web address]) Hand Teacher Of The Hearing Impaired/Pinch Strength Hand Strength Right Teacher Of The Hearing Impaired (lbs) 60 Left Teacher Of The Hearing Impaired (lbs) 45 Hip Strength Hip Manual Muscle Testing Right Flexion (L2) 4+ Good+ Extension (S1) 4+ Good+ Abduction 4+ Good+ Left Flexion (L2) 4+ Good+ Extension (S1) 4+ Good+ Abduction 4+ Good+ PT-OP-Q Treatments Start: 02/01/18 07:02 Freq: Status: Active Protocol: Document 05/21/18 12:00 HH (Rec: 05/21/18 18:24 HH [email or web address]) Therapeutic Exercises Supine Exercises prone press ext Side bilateral Reps/Minutes 5 secs hold x 10 x2 Comments elbow to extended elbow Standing Exercises hamstring stretch (stair) Reps/Minutes 3 x 30 Other Exercises child pose + L/S ext Side bilateral Reps/Minutes 30 x 2 Manual Therapy Treatment Soft Tissue Mobilization paraspinals Body Location paraspinals/QL Mobilization Type Myofascial Release Sustained Pressure Intensity/Depth Deep Body Position Prone Joint Mobilizations PA with L/S flexion Joint mobilization with movements, Grade III Body Position Sitting Comments seated at EOB ,PA mob at L1-L5 during trunk flexion PT-OP-R Modalities Start: 02/01/18 07:02 Freq: Status: Active Protocol: Document 03/12/18 11:23 SA (Rec: 03/12/18 11:33 SA [email or web address]) Hot Pack/Cold Pack Treatment Hot pack/Cold pack Location Low back/CP Patient Position Supine Treatment Duration (minutes) 10 Comments C-spine/Hot pack PT-OP-S Aquatic Treatment Start: 03/01/18 15:03 Freq: Status: Active Protocol: Document 04/26/18 11:45 LJ (Rec: 04/26/18 15:00 LJ [email or web address]) Aquatics Treatment Water Walking forward walking with paddles and weights Water Level Neck Level Level of Assistance Standby Assistance Comments cues for relaxing scap and back muscles for,back,side,soldier Water Level Neck Level Level of Assistance Verbal Cues Comments 30 meters eadh Lower Extremity Stretches DKTC/SKTC Reps/Duration at wall hamstring, ITB Body Position Standing Equipment Large Noodle Reps/Duration 2x Spinal Exercises sorner SLR Water Level [place] Reps/Duration 10x [place] Activities [place] Activities Bicycle Bicycle Backwards [place] Other Activities Deep water DLS including pendulums, dbl LE lift HS and hip flex stretch at wall Equipment floatation belt x2 Duration 12 min Comments verbal cues for neutral postural alignment Manual Techniques Bad Ragaz for spinal mobility (lumbar and thoracic), supine with neck float, waist float, LE floats Aquatic Massage supine with neck float, waist float, LE floats: upper traps, rhomboids, levator scap, thoracolumbar paraspinals PT-OP-T Assessment and Plan Start: 02/01/18 07:02 Freq: Status: Active Protocol: Document 05/21/18 12:00 HH (Rec: 05/21/18 18:24 HH [email or web address]) Physical Therapy Assessment Assessment Summary Assessment Pt shows increased symptoms today with trunk flexion. c/o radiating pain and numbness to front of R hip. However, his symptoms decreased with prone extension, followed by trunk flexion with PA mob. Pt also states his back pain and symptoms on the L side does not bother him anymore. Physical Therapy Plan Next Visit Focus/Plan Next Note Type Treatment Note Next Visit Plan reassess pt's symptoms with trunk movements. mphasis on exercises to facilitate deep spinal stabilizers, initiate lifting instruction with spinal stabilization; add weight as tolerated. [ End ]
--- NOTE | 2018-05-31 14:38 | PT.OTN ---
Current Diagnoses Lumbago with sciatica, unspecified side (05/21/18) Physical Therapy Treatment Note PT-OP-A Visit Information Start: 02/01/18 07:02 Freq: Status: Active Protocol: Document 05/31/18 14:31 SAK (Rec: 05/31/18 14:38 SAK [id number]) Out-Patient Physical Therapy Visit Information Visit Information Visit Type Treatment Note Visit Start Time 11:45 Visit Stop Time 12:30 Total Visit Minutes 45 Visit Number 11/30 Number of FACING BASTER Visits 0 PT-OP-B Current Condition Start: 02/01/18 07:02 Freq: Status: Active Protocol: Document 02/01/18 09:45 AMB (Rec: 02/06/18 10:27 AMB [email or web address]) Current Condition History of Current Condition Onset Date 2 years ago Current Complaints neck and back pain with numbness History of Current Condition Lei attends physical therapy with neck pain and low back pain. 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 He reports numbness in his left buttocks that worsens with coughing. He reports history of left arm numbness constant in nature that has improved with recent steroid injection. Prior [place] traction made him nauseous, worked mostly on strengthening which he did not feel improved his symptoms. He has had 2 steroid injection in his cervical spine which has helped both his pain and the numbness that was going down the left arm. 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 02/16/17 disc bulges at L1-2, L2-3, and L3-4, close proximity to the L2 nerve root, but otherwise no evidence of nerve root compression. Treatment Goals Patient/Caregiver Goals Reduce pain/ numbness Prior Functional Status Baseline Function- ADL's Independent Baseline Function- Mobility Independent Current Functional Impairments (Reported) Functional Limitations- Work/School Unable to work full duty due to neck/back pain and numbness PT-OP-C Subjective Start: 02/01/18 07:02 Freq: Status: Active Protocol: Document 05/31/18 14:31 SAK (Rec: 05/31/18 14:38 SAK [id number]) OP-PT Subjective Patient Comments Patient Comments No relief of pain after last session, pain persists, spinal flex exercise increased pain. Also reporting tightness in his neck. PT-OP-F Manual Assessment Start: 02/01/18 07:02 Freq: Status: Active Protocol: Document 02/01/18 09:45 AMB (Rec: 02/06/18 13:14 AMB [email or web address]) Manual Assessments Soft Tissue Assessment Soft Tissue Mobility Assessment Tightness in levator scap and UT bilaterally, worse at the left, Joint Mobility Assessment Joint Mobility Assessment Tenderness with PAs but still springy PT-OP-J Posture/Palpation/Skin Start: 02/01/18 07:02 Freq: Status: Active Protocol: Document 02/01/18 09:45 AMB (Rec: 02/06/18 13:14 AMB [email or web address]) Posture Evaluation Comments Posture Comments flat lumbar spine with mild forward head PT-OP-K Range of Motion Start: 02/01/18 07:02 Freq: Status: Active Protocol: Document 04/16/18 12:00 HH (Rec: 04/16/18 13:18 HH [email or web address]) Cervical Spine Range of Motion Cervical Spine Active Degrees Flexion 40 Extension 40 Rotation Left 40 Rotation Right 40 Lumbar Spine Range of Motion Lumbar Spine Active Degrees Flexion 40 Extension 20 Rotation Left 30 Rotation Right 30 PT-OP-L Special Tests Start: 02/01/18 07:02 Freq: Status: Active Protocol: Document 02/01/18 09:45 AMB (Rec: 02/06/18 13:12 AMB [email or web address]) Special Tests Lumbar Spine Special Tests Straight Leg Raise Test Results positive Comments for pain bilat at 50 degrees PT-OP-M Strength Start: 02/01/18 07:02 Freq: Status: Active Protocol: Document 04/16/18 12:00 HH (Rec: 04/16/18 13:18 HH [email or web address]) Hand Prop Cutter/Pinch Strength Hand Strength Right Prop Cutter (lbs) 60 Left Prop Cutter (lbs) 45 Hip Strength Hip Manual Muscle Testing Right Flexion (L2) 4+ Good+ Extension (S1) 4+ Good+ Abduction 4+ Good+ Left Flexion (L2) 4+ Good+ Extension (S1) 4+ Good+ Abduction 4+ Good+ PT-OP-Q Treatments Start: 02/01/18 07:02 Freq: Status: Active Protocol: Document 05/21/18 12:00 HH (Rec: 05/21/18 18:24 HH [email or web address]) Therapeutic Exercises Supine Exercises prone press ext Side bilateral Reps/Minutes 5 secs hold x 10 x2 Comments elbow to extended elbow Standing Exercises hamstring stretch (stair) Reps/Minutes 3 x 30 Other Exercises child pose + L/S ext Side bilateral Reps/Minutes 30 x 2 Manual Therapy Treatment Soft Tissue Mobilization paraspinals Body Location paraspinals/QL Mobilization Type Myofascial Release Sustained Pressure Intensity/Depth Deep Body Position Prone Joint Mobilizations PA with L/S flexion Joint mobilization with movements, Grade III Body Position Sitting Comments seated at EOB ,PA mob at L1-L5 during trunk flexion PT-OP-R Modalities Start: 02/01/18 07:02 Freq: Status: Active Protocol: Document 03/12/18 11:23 SA (Rec: 03/12/18 11:33 SA [email or web address]) Hot Pack/Cold Pack Treatment Hot pack/Cold pack Location Low back/CP Patient Position Supine Treatment Duration (minutes) 10 Comments C-spine/Hot pack PT-OP-S Aquatic Treatment Start: 03/01/18 15:03 Freq: Status: Active Protocol: Document 05/31/18 14:31 SAK (Rec: 05/31/18 14:38 SAK [id number]) Aquatics Treatment Pool Entry/Exit Pool Entry/Exit Method Stairs Assistance Independent Water Walking for,back,side,soldier Water Level Neck Level Level of Assistance Verbal Cues Comments 30 meters each Lower Extremity Stretches DKTC/SKTC Reps/Duration at wall hamstring, ITB Body Position Standing Equipment Large Noodle Reps/Duration 2x [place] Activities [place] Activities Bicycle Bicycle Backwards [place] Running Other Activities Forward run with noodle held behind back for scapular stab, core stab HS and hip flex stretch at wall Equipment floatation belt Duration 15 min Comments verbal cues for neutral postural alignment Manual Techniques Bad Ragaz for spinal mobility (lumbar and thoracic), supine with neck float, waist float, LE floats Aquatic Manual Traction lumbar: 3 min Aquatic Massage supine with neck float, waist float, LE floats: upper traps, rhomboids, levator scap, thoracolumbar paraspinals Other deep water traction Equipment [place] float, 5# clary Reps/Duration 10 min PT-OP-T Assessment and Plan Start: 02/01/18 07:02 Freq: Status: Active Protocol: Document 05/31/18 14:31 [facility] (Rec: 05/31/18 14:38 [facility] [id number]) Physical Therapy Assessment Goals Three Impairment Activity tolerance Short Term Goal (STG) Goal met today. 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 [ End ] STG Duration MET Pricer Bagger Goal (LTG) Goal met today. Saul will stand for 60 minutes with pain of 4 /10 or less. (goal met) New goal of being able to stand with pain /10 or less LTG Duration 12 weeks Two Impairment Strength Pricer Bagger Goal (LTG) Saul will perform a squat to lift 50 pounds with good body mechanics without an increase in baseline pain 04/29/18; no weight-lifting yet [ End ] LTG Duration 12 weeks One Impairment Range of motion Short Term Goal (STG) Saul will increase his cervical range of motion for 10 degrees grossly bilaterally. STG Duration 6 weeks Pricer Bagger Goal (LTG) Saul will increase his posterior chain flexibility to touch his ankle during standing flexion LTG Duration 12 weeks Assessment Summary Assessment Patient tolerated all treatment well except for aquatic burpees at wall involving spinal extension and flexion. Trial deep water traction today, reported decreased pain after treatment . Physical Therapy Plan Frequency and Duration Frequency of Treatment 2x/Week Duration of Treatment 16 weeks Plan of Care Start Date 04/16/18 Plan of Care End Date 08/07/18 Next Visit Focus/Plan Next Note Type Treatment Note Next Visit Plan Assess response to aquatic PT session with deep water traction. Progress ther ex and manual therapy techniques as indicated.
--- NOTE | 2018-06-18 13:38 | PT.OTN ---
Current Diagnoses Lumbago with sciatica, unspecified side (06/18/18) Physical Therapy Treatment Note PT-OP-A Visit Information Start: 02/01/18 07:02 Freq: Status: Active Protocol: Document 06/18/18 12:00 HH (Rec: 06/18/18 13:38 HH [email or web address]) Out-Patient Physical Therapy Visit Information Visit Information Visit Type Treatment Note Visit Start Time 12:00 Visit Stop Time 12:55 Total Visit Minutes 55 Visit Number 12/31 Number of FIREFIGHTER TYPE ONE Visits 0 PT-OP-B Current Condition Start: 02/01/18 07:02 Freq: Status: Active Protocol: Document 02/01/18 09:45 AMB (Rec: 02/06/18 10:27 AMB [email or web address]) Current Condition History of Current Condition Onset Date 2 years ago Current Complaints neck and back pain with numbness History of Current Condition Lei attends physical therapy with neck pain and low back pain. 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 He reports numbness in his left buttocks that worsens with coughing. He reports history of left arm numbness constant in nature that has improved with recent steroid injection. Prior Treatments and Tests [place] pt reports that traction made him nauseous, worked mostly on strengthening which he did not feel improved his symptoms. He has had 2 steroid injection in his cervical spine which has helped both his pain and the numbness that was going down the left arm. 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 02/16/17 disc bulges at L1-2, L2-3, and L3-4, close proximity to the L2 nerve root, but otherwise no evidence of nerve root compression. Treatment Goals Patient/Caregiver Goals Reduce pain/ numbness Prior Functional Status Baseline Function- ADL's Independent Baseline Function- Mobility Independent Current Functional Impairments (Reported) Functional Limitations- Work/School Unable to work full duty due to neck/back pain and numbness PT-OP-C Subjective Start: 02/01/18 07:02 Freq: Status: Active Protocol: Document 06/18/18 12:00 HH (Rec: 06/18/18 13:38 HH [email or web address]) OP-PT Subjective Patient Comments Patient Comments 'My neck pain started recently again possibly my injection from 3 months starts to wear off. My back has been the same lately 05/29. But overall my LBP has been improve 30-40% overall since initial evaluation. PT-OP-F Manual Assessment Start: 02/01/18 07:02 Freq: Status: Active Protocol: Document 02/01/18 09:45 AMB (Rec: 02/06/18 13:14 AMB [email or web address]) Manual Assessments Soft Tissue Assessment Soft Tissue Mobility Assessment Tightness in levator scap and UT bilaterally, worse at the left, Joint Mobility Assessment Joint Mobility Assessment Tenderness with PAs but still springy PT-OP-J Posture/Palpation/Skin Start: 02/01/18 07:02 Freq: Status: Active Protocol: Document 02/01/18 09:45 AMB (Rec: 02/06/18 13:14 AMB [email or web address]) Posture Evaluation Comments Posture Comments flat lumbar spine with mild forward head PT-OP-K Range of Motion Start: 02/01/18 07:02 Freq: Status: Active Protocol: Document 04/16/18 12:00 HH (Rec: 04/16/18 13:18 HH [email or web address]) Cervical Spine Range of Motion Cervical Spine Active Degrees Flexion 40 Extension 40 Rotation Left 40 Rotation Right 40 Lumbar Spine Range of Motion Lumbar Spine Active Degrees Flexion 40 Extension 20 Rotation Left 30 Rotation Right 30 PT-OP-L Special Tests Start: 02/01/18 07:02 Freq: Status: Active Protocol: Document 02/01/18 09:45 AMB (Rec: 02/06/18 13:12 AMB [email or web address]) Special Tests Lumbar Spine Special Tests Straight Leg Raise Test Results positive Comments for pain bilat at 50 degrees PT-OP-M Strength Start: 02/01/18 07:02 Freq: Status: Active Protocol: Document 04/16/18 12:00 HH (Rec: 04/16/18 13:18 HH [email or web address]) Hand Forest Firefighter/Pinch Strength Hand Strength Right Forest Firefighter (lbs) 60 Left Forest Firefighter (lbs) 45 Hip Strength Hip Manual Muscle Testing Right Flexion (L2) 4+ Good+ Extension (S1) 4+ Good+ Abduction 4+ Good+ Left Flexion (L2) 4+ Good+ Extension (S1) 4+ Good+ Abduction 4+ Good+ PT-OP-Q Treatments Start: 02/01/18 07:02 Freq: Status: Active Protocol: Document 06/18/18 12:00 HH (Rec: 06/18/18 13:38 HH [email or web address]) Therapeutic Exercises Sitting Exercises seated HS stretch and trunk flexion Equipment Used stool Reps/Minutes 5 mins Comments cues on deep and slow breathing seated trunk flexion Equipment Used stool Reps/Minutes 5 mins Comments cues on deep and slow breathing Standing Exercises scap roll Side bilateral Equipment Used hold 8 lbs bilaterally Reps/Minutes 5mins Comments resisted AROM cervical AROM Side bilateral Equipment Used hold 8 lbs bilaterally Reps/Minutes 5 mins Comments CAR Manual Therapy Treatment Soft Tissue Mobilization paraspinals Body Location paraspinals/QL Mobilization Type Myofascial Release Sustained Pressure Intensity/Depth Deep Body Position Prone Joint Mobilizations PA with L/S flexion Joint mobilization with movements, Grade III Body Position Sitting Comments seated at EOB ,PA mob at L1-L5 during trunk flexion PT-OP-R Modalities Start: 02/01/18 07:02 Freq: Status: Active Protocol: Document 03/12/18 11:23 SA (Rec: 03/12/18 11:33 SA [email or web address]) Hot Pack/Cold Pack Treatment Hot pack/Cold pack Location Low back/CP Patient Position Supine Treatment Duration (minutes) 10 Comments C-spine/Hot pack PT-OP-S Aquatic Treatment Start: 03/01/18 15:03 Freq: Status: Active Protocol: Document 05/31/18 14:31 SAK (Rec: 05/31/18 14:38 SAK [id number]) Aquatics Treatment Pool Entry/Exit Pool Entry/Exit Method Stairs Assistance Independent Water Walking for,back,side,soldier Water Level Neck Level Level of Assistance Verbal Cues Comments 30 meters each Lower Extremity Stretches DKTC/SKTC Reps/Duration at wall hamstring, ITB Body Position Standing Equipment Large Noodle Reps/Duration 2x [place] Activities [place] Activities Bicycle Bicycle Backwards [place] Running Other Activities Forward run with noodle held behind back for scapular stab, core stab HS and hip flex stretch at wall Equipment floatation belt Duration 15 min Comments verbal cues for neutral postural alignment Manual Techniques Sincere Ragaz for spinal mobility (lumbar and thoracic), supine with neck float, waist float, LE floats Aquatic Manual Traction lumbar: 3 min Aquatic Massage supine with neck float, waist float, LE floats: upper traps, rhomboids, levator scap, thoracolumbar paraspinals Other deep water traction Equipment [place] float, 5# clary Reps/Duration 10 min PT-OP-T Assessment and Plan Start: 02/01/18 07:02 Freq: Status: Active Protocol: Document 06/18/18 12:00 HH (Rec: 06/18/18 13:38 HH [email or web address]) Physical Therapy Assessment Assessment Summary Assessment Pt reports seated flexion with PA mob on L/S tends to feel really good, syptoms also slightly improved with repeated trunk motion exercises. Pt showed increase in neck pain recently possibly due to worn off of his injection effect. Tx will be focused on primarily overall spine segmental mobility and control. pt also tends to hold his breath/ SOB during ROM ex due to pain. Constant cues required to facilitate slow and deep breathing. Physical Therapy Plan Next Visit Focus/Plan Next Note Type Treatment Note Next Visit Plan repeated ROM exercises Pa mob with trunk movements. slow and deep postural strengthening.
--- NOTE | 2018-06-21 15:03 | PT.OTN ---
Current Diagnoses Lumbago with sciatica, unspecified side (06/21/18) Physical Therapy Treatment Note PT-OP-A Visit Information Start: 02/01/18 07:02 Freq: Status: Active Protocol: Document 06/21/18 14:42 SAK (Rec: 06/21/18 15:02 SAK [id number]) Out-Patient Physical Therapy Visit Information Visit Information Visit Type Treatment Note Visit Start Time 11:45 Visit Stop Time 12:30 Total Visit Minutes 45 Visit Number 11/30 Number of HARDWARE INSTALLATION COORDINATOR Visits 0 Evaluation Information Evaluation Date 02/01/18 PT-OP-B Current Condition Start: 02/01/18 07:02 Freq: Status: Active Protocol: Document 02/01/18 09:45 AMB (Rec: 02/06/18 10:27 AMB [email or web address]) Current Condition History of Current Condition Onset Date 2 years ago Current Complaints neck and back pain with numbness History of Current Condition Lei attends physical therapy with neck pain and low back pain. 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 He reports numbness in his left buttocks that worsens with coughing. He reports history of left arm numbness constant in nature that has improved with recent steroid injection. Prior Treatments and [place] reports that traction made him nauseous, worked mostly on strengthening which he did not feel improved his symptoms. He has had 2 steroid injection in his cervical spine which has helped both his pain and the numbness that was going down the left arm. 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 02/16/17 disc bulges at L1-2, L2-3, and L3-4, close proximity to the L2 nerve root, but otherwise no evidence of nerve root compression. Treatment Goals Patient/Caregiver Goals Reduce pain/ numbness Prior Functional Status Baseline Function- ADL's Independent Baseline Function- Mobility Independent Current Functional Impairments (Reported) Functional Limitations- Work/School Unable to work full duty due to neck/back pain and numbness PT-OP-C Subjective Start: 02/01/18 07:02 Freq: Status: Active Protocol: Document 06/21/18 14:42 SAK (Rec: 06/21/18 15:02 SAK [id number]) OP-PT Subjective Patient Comments Patient Comments Pain variable, better for 1-2 days after therapy but then returns. Wants further guidance about what he can do for his neck as he feels that after trying to lift weights he has increase in symptoms. Wants further PT. PT-OP-F Manual Assessment Start: 02/01/18 07:02 Freq: Status: Active Protocol: Document 02/01/18 09:45 AMB (Rec: 02/06/18 13:14 AMB [email or web address]) Manual Assessments Soft Tissue Assessment Soft Tissue Mobility Assessment Tightness in levator scap and UT bilaterally, worse at the left, Joint Mobility Assessment Joint Mobility Assessment Tenderness with PAs but still springy PT-OP-J Posture/Palpation/Skin Start: 02/01/18 07:02 Freq: Status: Active Protocol: Document 02/01/18 09:45 AMB (Rec: 02/06/18 13:14 AMB [email or web address]) Posture Evaluation Comments Posture Comments flat lumbar spine with mild forward head PT-OP-K Range of Motion Start: 02/01/18 07:02 Freq: Status: Active Protocol: Document 04/16/18 12:00 HH (Rec: 04/16/18 13:18 HH [email or web address]) Cervical Spine Range of Motion Cervical Spine Active Degrees Flexion 40 Extension 40 Rotation Left 40 Rotation Right 40 Lumbar Spine Range of Motion Lumbar Spine Active Degrees Flexion 40 Extension 20 Rotation Left 30 Rotation Right 30 PT-OP-L Special Tests Start: 02/01/18 07:02 Freq: Status: Active Protocol: Document 02/01/18 09:45 AMB (Rec: 02/06/18 13:12 AMB [email or web address]) Special Tests Lumbar Spine Special Tests Straight Leg Raise Test Results positive Comments for pain bilat at 50 degrees PT-OP-M Strength Start: 02/01/18 07:02 Freq: Status: Active Protocol: Document 04/16/18 12:00 HH (Rec: 04/16/18 13:18 HH [email or web address]) Hand Stone Setter Metal Optical Frames/Pinch Strength Hand Strength Right Stone Setter Metal Optical Frames (lbs) 60 Left Stone Setter Metal Optical Frames (lbs) 45 Hip Strength Hip Manual Muscle Testing Right Flexion (L2) 4+ Good+ Extension (S1) 4+ Good+ Abduction 4+ Good+ Left Flexion (L2) 4+ Good+ Extension (S1) 4+ Good+ Abduction 4+ Good+ PT-OP-Q Treatments Start: 02/01/18 07:02 Freq: Status: Active Protocol: Document 06/18/18 12:00 HH (Rec: 06/18/18 13:38 HH [email or web address]) Therapeutic Exercises Sitting Exercises seated HS stretch and trunk flexion Equipment Used stool Reps/Minutes 5 mins Comments cues on deep and slow breathing seated trunk flexion Equipment Used stool Reps/Minutes 5 mins Comments cues on deep and slow breathing Standing Exercises scap roll Side bilateral Equipment Used hold 8 lbs bilaterally Reps/Minutes 5mins Comments resisted AROM cervical AROM Side bilateral Equipment Used hold 8 lbs bilaterally Reps/Minutes 5 mins Comments CAR Manual Therapy Treatment Soft Tissue Mobilization paraspinals Body Location paraspinals/QL Mobilization Type Myofascial Release Sustained Pressure Intensity/Depth Deep Body Position Prone Joint Mobilizations PA with L/S flexion Joint mobilization with movements, Grade III Body Position Sitting Comments seated at EOB ,PA mob at L1-L5 during trunk flexion PT-OP-R Modalities Start: 02/01/18 07:02 Freq: Status: Active Protocol: Document 03/12/18 11:23 SA (Rec: 03/12/18 11:33 SA [email or web address]) Hot Pack/Cold Pack Treatment Hot pack/Cold pack Location Low back/CP Patient Position Supine Treatment Duration (minutes) 10 Comments C-spine/Hot pack PT-OP-S Aquatic Treatment Start: 03/01/18 15:03 Freq: Status: Active Protocol: Document 06/21/18 14:42 SAK (Rec: 06/21/18 15:02 SAK [id number]) Aquatics Treatment Pool Entry/Exit Pool Entry/Exit Method Stairs Assistance Independent Upper Extremity Exercises PNF D1 and D2 with paddles Reps/Duration 10x ea Comments cues for following hand with head hor ab/ad, flex/ext, Water Level Neck Level Equipment paddles Reps/Duration 10x Comments clary and unil, squat position Spinal Exercises supine crunch Equipment waist belt, noodle under neck, noodle under feet Reps/Duration 20x Comments no lifting of head supine lateral flex Equipment noodle hands, waist float, noodle under feet Reps/Duration 10x [place] Activities [place] Activities Bicycle Bicycle Backwards [place] Running Other Activities Forward run with noodle held behind back for scapular stab, core stab HS and hip flex stretch at wall reverse squat with small noodle Equipment floatation belt, UE floats Duration 15 min Comments verbal cues for neutral postural alignment Manual Techniques Bad Ragaz for spinal mobility (lumbar and thoracic), supine with neck float, waist float, LE floats Aquatic Manual Traction lumbar: 3 min Aquatic Massage supine with neck float, waist float, LE floats: upper traps, rhomboids, levator scap, thoracolumbar paraspinals PT-OP-T Assessment and Plan Start: 02/01/18 07:02 Freq: Status: Active Protocol: Document 06/21/18 14:42 [facility] (Rec: 06/21/18 15:02 [facility] [id number]) Physical Therapy Assessment Goals Three Impairment Activity tolerance Short Term Goal (STG) Goal met today. 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 [ End ] STG Duration MET Hr Internship Goal (LTG) Goal met today. Saul will stand for 60 minutes with pain of 4 /10 or less. (goal met) New goal of being able to stand with pain /10 or less LTG Duration 12 weeks Two Impairment Strength Hr Internship Goal (LTG) Saul will perform a squat to lift 50 pounds with good body mechanics without an increase in baseline pain 04/29/18; no weight-lifting yet [ End ] LTG Duration 12 weeks One Impairment Range of motion Short Term Goal (STG) Saul will increase his cervical range of motion for 10 degrees grossly bilaterally. STG Duration 6 weeks Hr Internship Goal (LTG) Saul will increase his posterior chain flexibility to touch his ankle during standing flexion LTG Duration 12 weeks Assessment Summary Assessment Good tolerance for aquatic exercise with decrease in pain for 1-2 days after. Symptoms easily irritable. May benefit from further PT, needs guidance in safe weight- lifting to prevent exacerbation of symptoms Physical Therapy Plan Frequency and Duration Frequency of Treatment 2x/Week Duration of Treatment 16 weeks Plan of Care Start Date 04/16/18 Plan of Care End Date 08/07/18 Next Visit Focus/Plan Next Note Type Treatment Note Next Visit Plan Continue PT per POC
--- NOTE | 2018-06-24 12:30 | PT.OTN ---
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 He reports numbness in his left buttocks that worsens with coughing. He reports history of left arm numbness constant in nature that has improved with recent steroid injection. Prior Treatments and [place] that traction made him nauseous, worked mostly on strengthening which he did not feel improved his symptoms. He has had 2 steroid injection in his cervical spine which has helped both his pain and the numbness that was going down the left arm. 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 02/16/17 disc bulges at L1-2, L2-3, and L3-4, close proximity to the L2 nerve root, but otherwise no evidence of nerve root compression. Treatment Goals Patient/Caregiver Goals Reduce pain/ numbness Prior Functional Status Baseline Function- ADL's Independent Baseline Function- Mobility Independent Current Functional Impairments (Reported) Functional Limitations- Work/School Unable to work full duty due to neck/back pain and numbness PT-OP-C Subjective Start: 02/01/18 07:02 Freq: Status: Active Protocol: Document 06/24/18 12:30 SAK (Rec: 06/25/18 17:07 SAK [id number]) OP-PT Subjective Patient Comments Patient Comments Patient reports he feels good after aquatic PT sessions but exercise in gym lifting weights or doing job activities brings pain back on in neck and low back. Also c /o frequent pain in wrists especially with work activities PT-OP-F Manual Assessment Start: 02/01/18 07:02 Freq: Status: Active Protocol: Document 02/01/18 09:45 AMB (Rec: 02/06/18 13:14 AMB [email or web address]) Manual Assessments Soft Tissue Assessment Soft Tissue Mobility Assessment Tightness in levator scap and UT bilaterally, worse at the left, Joint Mobility Assessment Joint Mobility Assessment Tenderness with PAs but still springy PT-OP-J Posture/Palpation/Skin Start: 02/01/18 07:02 Freq: Status: Active Protocol: Document 02/01/18 09:45 AMB (Rec: 02/06/18 13:14 AMB [email or web address]) Posture Evaluation Comments Posture Comments flat lumbar spine with mild forward head PT-OP-K Range of Motion Start: 02/01/18 07:02 Freq: Status: Active Protocol: Document 04/16/18 12:00 HH (Rec: 04/16/18 13:18 HH [email or web address]) Cervical Spine Range of Motion Cervical Spine Active Degrees Flexion 40 Extension 40 Rotation Left 40 Rotation Right 40 Lumbar Spine Range of Motion Lumbar Spine Active Degrees Flexion 40 Extension 20 Rotation Left 30 Rotation Right 30 PT-OP-L Special Tests Start: 02/01/18 07:02 Freq: Status: Active Protocol: Document 02/01/18 09:45 AMB (Rec: 02/06/18 13:12 AMB [email or web address]) Special Tests Lumbar Spine Special Tests Straight Leg Raise Test Results positive Comments for pain bilat at 50 degrees PT-OP-M Strength Start: 02/01/18 07:02 Freq: Status: Active Protocol: Document 04/16/18 12:00 HH (Rec: 04/16/18 13:18 HH [email or web address]) Hand Dean Of Graduate [employer]/Pinch Strength Hand Strength Right Dean [employer] (lbs) 60 Left [employer] (lbs) 45 Hip Strength Hip Manual Muscle Testing Right Flexion (L2) 4+ Good+ Extension (S1) 4+ Good+ Abduction 4+ Good+ Left Flexion (L2) 4+ Good+ Extension (S1) 4+ Good+ Abduction 4+ Good+ PT-OP-Q Treatments Start: 02/01/18 07:02 Freq: Status: Active Protocol: Document 06/18/18 12:00 HH (Rec: 06/18/18 13:38 HH [email or web address]) Therapeutic Exercises Sitting Exercises seated HS stretch and trunk flexion Equipment Used stool Reps/Minutes 5 mins Comments cues on deep and slow breathing seated trunk flexion Equipment Used stool Reps/Minutes 5 mins Comments cues on deep and slow breathing Standing Exercises scap roll Side bilateral Equipment Used hold 8 lbs bilaterally Reps/Minutes 5mins Comments resisted AROM cervical AROM Side bilateral Equipment Used hold 8 lbs bilaterally Reps/Minutes 5 mins Comments CAR Manual Therapy Treatment Soft Tissue Mobilization paraspinals Body Location paraspinals/QL Mobilization Type Myofascial Release Sustained Pressure Intensity/Depth Deep Body Position Prone Joint Mobilizations PA with L/S flexion Joint mobilization with movements, Grade III Body Position Sitting Comments seated at EOB ,PA mob at L1-L5 during trunk flexion PT-OP-R Modalities Start: 02/01/18 07:02 Freq: Status: Active Protocol: Document 03/12/18 11:23 SA (Rec: 03/12/18 11:33 SA [email or web address]) Hot Pack/Cold Pack Treatment Hot pack/Cold pack Location Low back/CP Patient Position Supine Treatment Duration (minutes) 10 Comments C-spine/Hot pack PT-OP-S Aquatic Treatment Start: 03/01/18 15:03 Freq: Status: Active Protocol: Document 06/24/18 12:30 SAK (Rec: 06/25/18 17:07 SAK [id number]) Aquatics Treatment Pool Entry/Exit Pool Entry/Exit Method Stairs Assistance Independent Lower Extremity Stretches hamstring, ITB Body Position Standing Equipment Large Noodle Reps/Duration 2x Upper Extremity Exercises PNF D1 and D2 with paddles Reps/Duration 10x ea Comments cues for following hand with head hor ab/ad, flex/ext, Water Level Neck Level Equipment paddles Reps/Duration 10x Comments clary and unil, squat position Spinal Exercises supine crunch Equipment waist belt, noodle under neck, noodle under feet Reps/Duration 20x Comments no lifting of head supine lateral flex Equipment noodle hands, waist float, noodle under feet Reps/Duration 10x Childress Activities Childress Activities Bicycle Bicycle Backwards Cross Country Running Other Activities Forward run with noodle held behind back for scapular stab, core stab HS and hip flex stretch at wall reverse squat with small noodle Equipment floatation belt, UE floats Duration 15 min Comments verbal cues for neutral postural alignment Manual Techniques [place] for spinal mobility (lumbar and thoracic), supine with neck float, waist float, LE floats Aquatic Manual Traction lumbar: 3 min Aquatic Massage supine with neck float, waist float, LE floats: upper traps, rhomboids, levator scap, thoracolumbar paraspinals PT-OP-T Assessment and Plan Start: 02/01/18 07:02 Freq: Status: Active Protocol: Document 06/24/18 12:30 SAK (Rec: 06/25/18 17:07 SAK [id number]) Physical Therapy Assessment Goals Three Impairment Activity tolerance Short Term Goal (STG) Goal met today. 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 [ End ] STG Duration MET Natural Gas Basis Trader Goal (LTG) Goal met today. Saul will stand for 60 minutes with pain of 4 /10 or less. (goal met) New goal of being able to stand with pain /10 or less LTG Duration 12 weeks Two Impairment Strength Natural Gas Basis Trader Goal (LTG) Saul will perform a squat to lift 50 pounds with good body mechanics without an increase in baseline pain 04/29/18; no weight-lifting yet [ End ] LTG Duration 12 weeks One Impairment Range of motion Short Term Goal (STG) Saul will increase his cervical range of motion for 10 degrees grossly bilaterally. STG Duration 6 weeks Senior Living Goal (LTG) Saul will increase his posterior chain flexibility to touch his ankle during standing flexion LTG Duration 12 weeks Assessment Summary Assessment symptom relief with aquatic therapy but easily exacerbated with work and land-based weight workouts. 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 Needs education for safe weight-lifting as well as instruction in neck and back protection with work activities. Physical Therapy Plan Frequency and Duration Frequency of Treatment 2x/Week Duration of Treatment 16 weeks Plan of Care Start Date 04/16/18 Plan of Care End Date 08/07/18 Next Visit Focus/Plan Next Note Type Treatment Note Next Visit Plan education regarding safe weight-lifting, and also body mechanics and spine protection for work activities . Progress ther ex.
--- NOTE | 2018-06-27 17:45 | PT.OTN ---
Current Diagnoses Lumbago with sciatica, unspecified side (06/27/18) Physical Therapy Treatment Note PT-OP-A Visit Information Start: 02/01/18 07:02 Freq: Status: Active Protocol: Document 06/27/18 14:30 HH (Rec: 06/27/18 17:44 HH [email or web address]) Out-Patient Physical Therapy Visit Information Visit Information Visit Type Re-Evaluation Visit Note re-eval today. Visit Start Time 14:30 Visit Stop Time 15:15 Total Visit Minutes 45 Visit Number 01/30 Number of PUPIL PERSONNEL SERVICES DIRECTOR Visits 0 PT-OP-B Current Condition Start: 02/01/18 07:02 Freq: Status: Active Protocol: Document 02/01/18 09:45 AMB (Rec: 02/06/18 10:27 AMB [email or web address]) Current Condition History of Current Condition Onset Date 2 years ago Current Complaints neck and back pain with numbness History of Current Condition Lei attends physical therapy with neck pain and low back pain. 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 He reports numbness in his left buttocks that worsens with coughing. He reports history of left arm numbness constant in nature that has improved with recent steroid injection. Prior Treatments and Tests [place] pt reports that traction made him nauseous, worked mostly on strengthening which he did not feel improved his symptoms. He has had 2 steroid injection in his cervical spine which has helped both his pain and the numbness that was going down the left arm. 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 02/16/17 disc bulges at L1-2, L2-3, and L3-4, close proximity to the L2 nerve root, but otherwise no evidence of nerve root compression. Treatment Goals Patient/Caregiver Goals Reduce pain/ numbness Prior Functional Status Baseline Function- ADL's Independent Baseline Function- Mobility Independent Current Functional Impairments (Reported) Functional Limitations- Work/School Unable to work full duty due to neck/back pain and numbness PT-OP-C Subjective Start: 02/01/18 07:02 Freq: Status: Active Protocol: Document 06/27/18 14:30 HH (Rec: 06/27/18 17:44 HH [email or web address]) OP-PT Subjective Patient Comments Patient Comments Pt wonders how can he carry over his good feeling after therapy into daily basis. PT-OP-F Manual Assessment Start: 02/01/18 07:02 Freq: Status: Active Protocol: Document 02/01/18 09:45 AMB (Rec: 02/06/18 13:14 AMB [email or web address]) Manual Assessments Soft Tissue Assessment Soft Tissue Mobility Assessment Tightness in levator scap and UT bilaterally, worse at the left, Joint Mobility Assessment Joint Mobility Assessment Tenderness with PAs but still springy PT-OP-J Posture/Palpation/Skin Start: 02/01/18 07:02 Freq: Status: Active Protocol: Document 02/01/18 09:45 AMB (Rec: 02/06/18 13:14 AMB [email or web address]) Posture Evaluation Comments Posture Comments flat lumbar spine with mild forward head PT-OP-K Range of Motion Start: 02/01/18 07:02 Freq: Status: Active Protocol: Document 04/16/18 12:00 HH (Rec: 04/16/18 13:18 HH [email or web address]) Cervical Spine Range of Motion Cervical Spine Active Degrees Flexion 40 Extension 40 Rotation Left 40 Rotation Right 40 Lumbar Spine Range of Motion Lumbar Spine Active Degrees Flexion 40 Extension 20 Rotation Left 30 Rotation Right 30 PT-OP-L Special Tests Start: 02/01/18 07:02 Freq: Status: Active Protocol: Document 02/01/18 09:45 AMB (Rec: 02/06/18 13:12 AMB [email or web address]) Special Tests Lumbar Spine Special Tests Straight Leg Raise Test Results positive Comments for pain bilat at 50 degrees PT-OP-M Strength Start: 02/01/18 07:02 Freq: Status: Active Protocol: Document 04/16/18 12:00 HH (Rec: 04/16/18 13:18 HH [email or web address]) Hand Glory Hole Tender/Pinch Strength Hand Strength Right Glory Hole Tender (lbs) 60 Left Glory Hole Tender (lbs) 45 Hip Strength Hip Manual Muscle Testing Right Flexion (L2) 4+ Good+ Extension (S1) 4+ Good+ Abduction 4+ Good+ Left Flexion (L2) 4+ Good+ Extension (S1) 4+ Good+ Abduction 4+ Good+ PT-OP-Q Treatments Start: 02/01/18 07:02 Freq: Status: Active Protocol: Document 06/27/18 14:30 HH (Rec: 06/27/18 17:44 HH [email or web address]) Therapeutic Exercises Sitting Exercises seated trunk rotational stretch Sitting Exercise Name with maunal assistance. Side bilateral Reps/Minutes 5 mins Comments opposite ankle touch seated HS stretch and trunk flexion Equipment Used stool Reps/Minutes 5 mins Comments cues on deep and slow breathing seated trunk flexion Equipment Used stool Reps/Minutes 5 mins Comments cues on deep and slow breathing Standing Exercises Deadlift Side bilateral Equipment Used 15# DB each side Reps/Minutes 5 secs up and down x 8 Comments slow movements. jaylon curl Standing Exercise Name tempo Side bilateral Reps/Minutes 8 secs up and down x 2 Comments segmental control on cervical, T/S, L/S, hamstring standing lumbar flexion with 15lbs DB Side bilateral Reps/Minutes 8 x 2 Comments segmental control Other Exercises cat camel Side bilateral Reps/Minutes 10 x2 PT-OP-R Modalities Start: 02/01/18 07:02 Freq: Status: Active Protocol: Document 03/12/18 11:23 SA (Rec: 03/12/18 11:33 SA [email or web address]) Hot Pack/Cold Pack Treatment Hot pack/Cold pack Location Low back/CP Patient Position Supine Treatment Duration (minutes) 10 Comments C-spine/Hot pack PT-OP-S Aquatic Treatment Start: 03/01/18 15:03 Freq: Status: Active Protocol: Document 06/24/18 12:30 SAK (Rec: 06/25/18 17:07 SAK [id number]) Aquatics Treatment Pool Entry/Exit Pool Entry/Exit Method Stairs Assistance Independent Lower Extremity Stretches hamstring, ITB Body Position Standing Equipment Large Noodle Reps/Duration 2x Upper Extremity Exercises PNF D1 and D2 with paddles Reps/Duration 10x ea Comments cues for following hand with head hor ab/ad, flex/ext, Water Level Neck Level Equipment paddles Reps/Duration 10x Comments clary and unil, squat position Spinal Exercises supine crunch Equipment waist belt, noodle under neck, noodle under feet Reps/Duration 20x Comments no lifting of head supine lateral flex Equipment noodle hands, waist float, noodle under feet Reps/Duration 10x Delancey Activities Delancey Activities Bicycle Bicycle Backwards Cross Country Running Other Activities Forward run with noodle held behind back for scapular stab, core stab HS and hip flex stretch at wall reverse squat with small noodle Equipment floatation belt, UE floats Duration 15 min Comments verbal cues for neutral postural alignment Manual Techniques [place] for spinal mobility (lumbar and thoracic), supine with neck float, waist float, LE floats Aquatic Manual Traction lumbar: 3 min Aquatic Massage supine with neck float, waist float, LE floats: upper traps, rhomboids, levator scap, thoracolumbar paraspinals PT-OP-T Assessment and Plan Start: 02/01/18 07:02 Freq: Status: Active Protocol: Document 06/27/18 14:30 HH (Rec: 06/27/18 17:44 HH [email or web address]) Physical Therapy Assessment Rehab Potential Rehabilitation Potential Good Goals lifting mechanics Impairment poor lifting mechanics, Pt tends to do with high speed. Care Home Goal (LTG) Pt will be able to perform lifting activities with a slow and proper body mechanics. LTG Duration 8 weeks Three Impairment Activity tolerance Short Term Goal (STG) Goal met today. 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 [ End ] Care Home Goal (LTG) Goal met today. Lei will stand for 60 minutes with pain of 4 /10 or less. (goal met) New goal of being able to stand with pain /10 or less LTG Duration 16 weeks Two Impairment Strength Care Home Goal (LTG) Lei will perform a squat to lift 50 pounds with good body mechanics without an increase in baseline pain 04/29/18; no weight-lifting yet 06/27/18; pt just started weight lifting a week ago and cont need cues to improve speed and mechanics. [ End ] LTG Duration 16 weeks One Impairment Range of motion Short Term Goal (STG) 06/27/18; Pt currently has increased pain in neck since his neck injection has been wearing off Lei will increase his cervical range of motion for 10 degrees grossly bilaterally. Care Home Goal (LTG) 06/27/18: able to reach to mid lee with standing flexion Lei will increase his posterior chain flexibility to touch his ankle during standing flexion LTG Duration 16 weeks Progress Towards Goals Progress Towards Goals Slow Progress due to Medical Issues Slow Progress - Other Assessment Summary Assessment Althought pt cont to present some sort of chronic pain symptoms, his symptoms cont relieved after session. He cont required cues to slow down his movements for his lifting activities. Went through multiple exercises today with pt today such as deadlift, jaylon curls,pull down with him today and did not c/o pain. Pt will cont require skilled PT to improve his overall trunk segmental mobility and strength at end range to end range in order to maintain/ optimize his physical health. Physical Therapy Plan Frequency and Duration Frequency of Treatment 2x/Week Duration of Treatment 16 Plan of Care Start Date 06/27/18 Plan of Care End Date 10/28/18 Next Visit Focus/Plan Next Note Type Treatment Note Next Visit Plan education regarding safe weight-lifting, and also body mechanics and spine protection for work activities . Progress ther ex.
--- NOTE | 2018-09-24 17:18 | PT.OPDS ---
Current Diagnoses Lumbago with sciatica, unspecified side (06/27/18) Provider Visit Care Team Role Provider Type López Terrazas Attending Provider Non-Staff Primary Care Provider Specialty: Medical Address: [address] [place] [address], [address], [phone] Email: Visit Number Visit Number 01/30 Discharge Summary PT-OP-B Current Condition Start: 02/01/18 07:02 Freq: Status: Active Protocol: Document 02/01/18 09:45 AMB (Rec: 02/06/18 10:27 AMB [email or web address]) Current Condition History of Current Condition Onset Date 2 years ago Current Complaints neck and back pain with numbness History of Current Condition Lei attends physical therapy with neck pain and low back pain. 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 He reports numbness in his left buttocks that worsens with coughing. He reports history of left arm numbness constant in nature that has improved with recent steroid injection. Prior Treatments and [place] reports that traction made him nauseous, worked mostly on strengthening which he did not feel improved his symptoms. He has had 2 steroid injection in his cervical spine which has helped both his pain and the numbness that was going down the left arm. 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 02/16/17 disc bulges at L1-2, L2-3, and L3-4, close proximity to the L2 nerve root, but otherwise no evidence of nerve root compression. Treatment Goals Patient/Caregiver Goals Reduce pain/ numbness Prior Functional Status Baseline Function- ADL's Independent Baseline Function- Mobility Independent Current Functional Impairments (Reported) Functional Limitations- Work/School Unable to work full duty due to neck/back pain and numbness PT-OP-C Subjective Start: 02/01/18 07:02 Freq: Status: Active Protocol: Document 06/27/18 14:30 HH (Rec: 06/27/18 17:44 HH [email or web address]) OP-PT Subjective Patient Comments Patient Comments Pt wonders how can he carry over his good feeling after therapy into daily basis. PT-OP-F Manual Assessment Start: 02/01/18 07:02 Freq: Status: Active Protocol: Document 02/01/18 09:45 AMB (Rec: 02/06/18 13:14 AMB [email or web address]) Manual Assessments Soft Tissue Assessment Soft Tissue Mobility Assessment Tightness in levator scap and UT bilaterally, worse at the left, Joint Mobility Assessment Joint Mobility Assessment Tenderness with PAs but still springy PT-OP-J Posture/Palpation/Skin Start: 02/01/18 07:02 Freq: Status: Active Protocol: Document 02/01/18 09:45 AMB (Rec: 02/06/18 13:14 AMB [email or web address]) Posture Evaluation Comments Posture Comments flat lumbar spine with mild forward head PT-OP-K Range of Motion Start: 02/01/18 07:02 Freq: Status: Active Protocol: Document 04/16/18 12:00 HH (Rec: 04/16/18 13:18 HH [email or web address]) Cervical Spine Range of Motion Cervical Spine Active Degrees Flexion 40 Extension 40 Rotation Left 40 Rotation Right 40 Lumbar Spine Range of Motion Lumbar Spine Active Degrees Flexion 40 Extension 20 Rotation Left 30 Rotation Right 30 PT-OP-L Special Tests Start: 02/01/18 07:02 Freq: Status: Active Protocol: Document 02/01/18 09:45 AMB (Rec: 02/06/18 13:12 AMB [email or web address]) Special Tests Lumbar Spine Special Tests Straight Leg Raise Test Results positive Comments for pain bilat at 50 degrees PT-OP-M Strength Start: 02/01/18 07:02 Freq: Status: Active Protocol: Document 04/16/18 12:00 HH (Rec: 04/16/18 13:18 HH [email or web address]) Hand Envelope Cutter/Pinch Strength Hand Strength Right Envelope Cutter (lbs) 60 Left Envelope Cutter (lbs) 45 Hip Strength Hip Manual Muscle Testing Right Flexion (L2) 4+ Good+ Extension (S1) 4+ Good+ Abduction 4+ Good+ Left Flexion (L2) 4+ Good+ Extension (S1) 4+ Good+ Abduction 4+ Good+ PT-OP-T Assessment and Plan Start: 02/01/18 07:02 Freq: Status: Active Protocol: Document 09/24/18 17:17 HH (Rec: 09/24/18 17:18 HH [email or web address]) Physical Therapy Plan Discharge Physical Therapy Discharge Reasons No Longer Attending PT Discharge Comments pt's authorization and does not have new auth. D/C from PT
== END 2018-09-25 09:06 | disposition home or self-care (01) ==
LOC: PHYS 14:30
PROVIDERS: PCP Anesthesiology Pain Medicine; Visit Provider Anesthesiology Pain Medicine
DX: M54.40 Lumbago with sciatica, unspecified side (principal)
CPT/HCPCS: 97110; 97113; 97140; 97162; 97164

== ENCOUNTER 2018-10-05 16:03 | Emergency (ER) | payer OTHER, SELFPAY ==
--- NOTE | 2018-10-05 16:09 | ED.GENADULT ---
HPI - General Adult General Stated complaint: thinks sinus infection Time Seen by Provider: 10/05/18 16:08 Related Data Home Medications Medication Instructions Recorded Confirmed amoxicillin 50 mg PO TID 03/22/18 03/22/18 chlorhexidine gluconate 1 dose PO DIRECTED 03/22/18 03/22/18 ibuprofen 800 mg PO TID PRN 03/22/18 03/22/18 Previous Rx's Medication Instructions Recorded meloxicam [Mobic] 15 mg PO DAILY #30 tab 03/22/18 Allergies Allergy/AdvReac Type Severity Reaction Status Date / Time No Known Drug Allergies Allergy Verified 12/28/17 18:37 PFS Social History Smoking Status: Never smoker Discharge Plan Departure Prescriptions: No Action amoxicillin 500 mg capsule 50 mg PO TID RF: 0 ibuprofen 800 mg tablet 800 mg PO TID PRN (Reason: pain) RF: 0 chlorhexidine gluconate 0.12 % mouthwash 1 dose PO DIRECTED RF: 0 meloxicam [Mobic] 15 mg tablet 15 mg PO DAILY Qty: 30 RF: 0
[2018-10-05 16:10] VITALS: BP 131/72; PULSE 72; RESP 16; TEMP 36.7; O2SAT 97; BMI 26.9
--- NOTE | 2018-10-05 16:46 | ED.URI ---
HPI - URI/Sore Throat <FAIZAN Benton - Last Filed: 10/05/18 17:04> General Chief Complaint: Upper Respiratory Symptoms Stated Complaint: thinks sinus infection Time Seen by Provider: 10/05/18 16:08 Source: patient Mode of arrival: ambulatory Limitations: no limitations History of Present Illness HPI Narrative: This is a 37-year-old male, smoker, active [employer] presents to ED with chief complain of sneezing, runny nose, watery itchy eyes for several months. He reports pressure discomfort on nasal bridge area. He has noticed these symptoms during in the morning for about 30 minutes but it resolved most of the time. However, today the symptoms has continued no relief. He reports that he is not new in town. Does not currently use any allergy medications. He denies fever/chills, nausea/vomiting, prune drainage from his nose, no teeth pain. Related Data Home Medications Medication Instructions Recorded Confirmed amoxicillin 50 mg PO TID 03/22/18 03/22/18 chlorhexidine gluconate 1 dose PO DIRECTED 03/22/18 03/22/18 ibuprofen 800 mg PO TID PRN 03/22/18 03/22/18 Previous Rx's Medication Instructions Recorded meloxicam [Mobic] 15 mg PO DAILY #30 tab 03/22/18 cetirizine [Zyrtec] 10 mg PO Q12H PRN #20 cap 10/05/18 fluticasone propionate 2 spray NASAL DAILY #19.8 gram 10/05/18 Allergies Allergy/AdvReac Type Severity Reaction Status Date / Time No Known Drug Allergies Allergy Verified 10/05/18 16:12 Review of Systems <FAIZAN Benton - Last Filed: 10/05/18 17:04> Review of Systems General: Denies fever, chills, fatigue, malaise, sweats. HEENT: Reports sinus pain and some dizziness. Denies ear pain, sore throat, difficulty swallowing. Respiratory: Denies dyspnea, cough, wheezing, hemoptysis, sputum. Cardiovascular: Denies chest pain, palpitations, orthopnea, edema. Gastrointestinal: Denies nausea, vomiting, abdominal pain, diarrhea, constipation, melena. : Denies dysuria, frequency, incontinence, hematuria, urinary retention. Musculoskeletal: Denies weakness, joint pain or bony pain. Skin: Denies rash, skin lesions, or other. Neurologic: Denies weakness, headache, numbness, change in speech, confusion, seizures, incoordination. Psychiatric: No concerning psychosocial issues. 12-point review of systems is negative except for those stated above. PFSH <FAIZAN Benton - Last Filed: 10/05/18 17:04> Medical History Chronic abdominal pain (Chronic) Chronic headaches (Chronic) Chronic neck pain (Chronic) H. pylori infection (Chronic) Surgical History No pertinent past surgical history (Chronic) Family History (Updated 03/22/18 @ 17:17 by Alycia Virk PA-C) Other Family history non-contributory Social History Smoking Status: Current every day smoker Family History Other Family history non-contributory Social History Smoking Status: Current every day smoker Exam <FAIZAN Benton - Last Filed: 10/05/18 17:04> Narrative Exam Narrative: GEN: Alert, oriented x 3, well appearing and nourished, and in no acute distress. Head: Normal cephalic, atraumatic. No scalp or temporal tenderness, palpable mass or rash. EYES: Pupils are equal, round, and reactive to light and accommodation. Extraocular muscles are intact bilaterally. There is no subconjunctival hemorrhage, exudate and sclera non-icteric. ENT: Bilateral auditory canals and tympanic membranes. Hearing grossly intact. Nose without bleeding, purulent discharge, septal hematoma or deviation. Turbinate with moderate to severe erythema and swelling. Facial sinuses nontender to palpate. Mucous membrane moist, no mucosal lesion. Throat without erythema, tonsillar hypertrophy or exudate. Uvula in midline, airway patent. Neck: Trachea in midline. No JVD, non-tender without lymphadenopathy. No masses or thyroid megaly. Supple, non-tender and no meningeal signs. CARDIAC: Normal regular rate and rhythm without murmurs, gallops, or rubs. No chest wall tenderness. No peripheral edema, cyanosis or pallor. Capillary refill is less than 2 seconds. RESPIRATORY: Lungs are cleat to auscultate bilaterally. No cough, wheezes, rales, or rhonchi. No stridor, respiratory distress, increase work of breathing, or accessary muscle used. ABD: Abdomen soft, nontender and non-distended. No guarding or rebound tenderness to palpate. Bowel sounds are normal in all 4 quadrants. There is no palpable masses or organomegaly. EXT: Full painless ROM of all extremities with no loss of sensation, strength, effusion or edema. SKIN: Warm, dry, normal color for patient. No erythema, lesions or rash over visible areas. BACK: Nontender without deformity or crepitance. No flank tenderness. NEUROLOGICAL: Alert and oriented to place, time and person. Sensation and motor function intact bilaterally. No facial droops, dysphasia. PSYCHIATRIC: Good judgement and reason, without hallucinations, abnormal affect or abnormal behaviors during the examination. Patient is not suicidal. Initial Vital Signs Initial Vital Signs: Vital Signs Temperature 98.0 F 10/05/18 16:10 Pulse Rate 72 10/05/18 16:10 Respiratory Rate 16 10/05/18 16:10 Blood Pressure 131/72 10/05/18 16:10 Pulse Oximetry 97 10/05/18 16:10 <Erasto Chandler DO - Last Filed: 10/05/18 17:08> Initial Vital Signs Initial Vital Signs: Vital Signs Temperature 98.0 F 10/05/18 16:10 Pulse Rate 72 10/05/18 16:10 Respiratory Rate 16 10/05/18 16:10 Blood Pressure 131/72 10/05/18 16:10 Pulse Oximetry 97 10/05/18 16:10 Course <FAIZAN Benton - Last Filed: 10/05/18 17:04> Vital Signs - 8 hr 10/05/18 16:10 Temperature 98.0 F Pulse Rate 72 Respiratory Rate 16 Blood Pressure 131/72 Pulse Oximetry 97 <Erasto Chandler DO - Last Filed: 10/05/18 17:08> Vital Signs - 8 hr 10/05/18 16:10 Temperature 98.0 F Pulse Rate 72 Respiratory Rate 16 Blood Pressure 131/72 Pulse Oximetry 97 [facility] - URI/Sore Throat <FAIZAN Benton - Last Filed: 10/05/18 17:04> Differential Diagnosis Differential diagnosis: Likely upper respiratory infection, sinusitis and other (allegic rhinitis) Medical Records Attestation: I reviewed the patient's medical records. [facility] Narrative Medical decision making narrative: This is a 37-year-old male who presents with sinus congestion, sneezing, runny nose, watery itchy eyes for several months. He does not have constitutional symptoms. He reports today the symptoms are worse and persistent. He has pressure-like discomfort around his nasal bridge. He had tried allergy medications or steroids nasal sprayed in the past. His physical findings are consistent with allergy rhinitis. Patient was prescribed with nasal steroid and p.o. allergy medications today. Return precautions were discussed with patient. Patient was advised to follow up with primary care physician next week. Questions answered to apparent satisfaction and patient agrees with treatment plan. Discharge Plan Departure Patient Disposition: Home Clinical Impression: Allergic rhinitis Qualifiers: Allergic rhinitis trigger: unspecified Allergic rhinitis seasonality: unspecified Qualified Code(s): J30.9 - Allergic rhinitis, unspecified Instructions: DI for Allergic Rhinitis Activity Restrictions/Additional Instructions: You have been diagnosed with [allergy rhinitis. Your physical exam is not presenting as sinus infection at this time]. What to do: *Take your medications as directed. Please use to nasal spray of fluticasone each nostril daily to decrease swelling and inflammation in her nose. Can take oral Zyrtec, allergy pill twice a day as needed for itching eyes and watery eyes. *Follow up with your primary care provider in 2-3 days, call for an appointment. Let them know you were seen in the ED and that we asked you to be seen in follow up. *Return to ED if you have any new, worsening, or concerning symptoms, such as [purulent discharge from her nose, fever/chills, nausea/vomiting, swelling and redness on her face, chest pain, breathing difficulty, any acute concerns]. Prescriptions: New fluticasone propionate 50 mcg/actuation spray,suspension 2 spray NASAL DAILY Qty: 19.8 RF: 0 Zyrtec 10 mg capsule 10 mg PO Q12H PRN (Reason: allergy symptoms) Qty: 20 RF: 0 No Action amoxicillin 500 mg capsule 50 mg PO TID RF: 0 ibuprofen 800 mg tablet 800 mg PO TID PRN (Reason: pain) RF: 0 chlorhexidine gluconate 0.12 % mouthwash 1 dose PO DIRECTED RF: 0 meloxicam [Mobic] 15 mg tablet 15 mg PO DAILY Qty: 30 RF: 0 Referrals: [facility] [Outside] [facility] [Primary Care Provider] - <Erasto Chandler DO - Last Filed: 10/05/18 17:08> Cosign ED Attending Mariaature Attestation: I was available for consultation during this patient's emergency department encounter
[2018-10-05 17:14] VITALS: BP 132/73; PULSE 75; RESP 18; O2SAT 98
== END 2018-10-05 17:15 | disposition home or self-care (01) ==
PROVIDERS: Emergency Provider Nurse Practitioner Family; PCP Anesthesiology Pain Medicine
DX: J30.9 Allergic rhinitis, unspecified (principal)
CPT/HCPCS: 99282